=== PATIENT | male | born 2000 ===

== ENCOUNTER 2020-06-30 20:06 | Emergency (ER) | payer OTHER, SELFPAY ==
[2020-06-30 20:07] VITALS: BP 139/78; PULSE 76; RESP 16; TEMP 36.7; O2SAT 98; BMI 37.3
[2020-06-30] MEDS: Fluorescein Sodium STRIP 1 STRIP EYE-LEFT (21:21)
[2020-06-30] MEDS: Tetracaine HCl/PF 0.5% Oph Sol 4 ML DROPS 3 DROP EYE-LEFT (21:21)
--- NOTE | 2020-06-30 22:05 | ED_ITS ---
HPI - Eye Problem General Chief complaint: Eye Problems Stated complaint: left eye pain Time Seen by Provider: 06/30/20 20:45 Source: patient Mode of arrival: ambulatory Limitations: no limitations History of Present Illness HPI Narrative: Patient present to the ED for left eye irritation. Patient states something may have went into his eye, but does not remeber. Patient states no eye contacts MD chief complaint: eye redness Related Data Previous Rx's Medication Instructions Recorded erythromycin 0.5 inch OPHTHALMIC (EYE) QID #3.5 06/30/20 g naproxen 500 mg PO BID PRN #20 tab 06/30/20 Allergies Allergy/AdvReac Type Severity Reaction Status Date / Time amoxicillin [AMOXICILLIN] Allergy Unknown RASH Verified 06/30/20 21:21 Review of Systems Review of Systems: Yes all other systems are reviewed and are negative Constitutional: Constitutional: Reports as per HPI and Reports no additional constitutional complaints Eyes: Eyes: Reports as per HPI and Reports no additional eye complaints Comments: Eye irritation ENT: Reports system reviewed and no additional complaints, except as documented and Reports as per HPI Cardiovascular: Cardiovascular: Reports as per HPI and Reports no additional cardiovascular complaints Respiratory: Respiratory: Reports as per HPI and Reports no additional respiratory complaints Gastrointestinal: Gastrointestinal: Reports as per HPI and Reports no additional gastrointestinal complaints Genitourinary: Genitourinary: Reports no additional male genitourinary complaints and Reports as per HPI Musculoskeletal: Musculoskeletal: Reports no additional musculoskeletal complaints and Reports as per HPI Neurologic: Reports system reviewed and no additional complaints, except as documented and Reports as per HPI Psychiatric: Psychiatric: Reports no additional psychiatric complaints and Reports as per HPI [facility] Past Medical History Medical History (Updated 07/01/20 @ 00:01 by Ángel Walker) Asthma Social History Social History Advance Directives: No Advance Directives Information Provided: Yes Physical Exam Vital Signs: Vital Signs: Last Vital Signs Temp 98.1 F 06/30/20 20:07 Pulse 76 06/30/20 20:07 Resp 16 06/30/20 20:07 BP 139/78 06/30/20 20:07 Pulse Ox 98 06/30/20 20:07 Body Mass Index 37.3 Const: General: cooperative, healthy appearing, comfortable, no acute distress, well developed, alert and awake Orientation/consciousness: patient oriented x3 HENMT: Head: Yes normal to inspection, Yes No palpable skull fracture present, Yes normocephalic, Yes atraumatic and No abrasion Eyes: Other: Left eye: Positive for foreign body on iris. Fluorescein dye placed in eye and negative for corneal abrasion just foreign body. Negative for signs of globe rupture. slight conjuctiva erythema Right eye is normal: General: appearance normal, both eyes and all related structures Neck: Neck: Yes normal visual inspection, Yes full ROM, Yes no lymphadenopathy, Yes no meningeal signs, Yes trachea midline, Yes supple and No tender Chest: Chest palpation & inspection: normal inspection of the chest and normal palpation of entire chest wall Resp: Effort & Inspection: normal respiratory effort and able to speak in complete sentences Auscultation: clear to auscultation bilaterally Cardio: Jugular venous distension: no JVD Heart sounds: S1 normal heart sound present and S2 normal heart sound present GI: Inspection: Yes normal to inspection and No abdominal wall ecchymosis Palpation (GI): Soft to palpation, not firm, nontender, no guarding and not rigid : General: No CVA tenderness and Yes no CVA tenderness Back/Spine/Pelvis: Back: no CVA tenderness, No CVA tenderness and No back tenderness Skin: General skin exam: no rashes or lesions noted and elasticity normal Neuro: General: patient oriented x3, gait normal, no meningeal signs and CN's II-XI intact bilaterally Cranial nerves: Yes CN's II-XII intact bilaterally Extrem: General: Yes normal to inspection and Yes full ROM Psych: Appearance: grossly normal, well kempt and not disheveled Course Course Course Narrative: Tetracaine, wounds lamp, and fluorescein dye will be used for eye exam Reevaluation(s) Reevaluation #1: Positive for foreign body. Attempt to remove multiple time was not successful. Dye exam does not indicate globe rupture. Negative for corneal abrasion. Will give Tdap and sent home on erythromycin oitnment. Patient to follow-up with Dr. Cerna of Ophthalmology Visual acuity of right eye 20/20. Left eye 20/40 MDM - Eye Problem MDM Narrative Medical decision making narrative: Foreign body in eye Discharge Plan Discharge Clinical Impression: Foreign body in eye Patient Disposition: Home, Self-Care Instructions: Eye Foreign Body (ED) Additional Instructions: To the ED immediately for eye pain, loss of vision, eye discharge, change in vision, or any other concerning symptoms. Prescriptions: New erythromycin 5 mg/gram (0.5 %) ointment 0.5 inch ophthalmic (eye) QID Qty: 3.5 RF: 0 naproxen 500 mg tablet 500 mg PO BID PRN (Reason: pain) Qty: 20 RF: 0 Referrals: Chino Cerna [Physician] - 2 days (Corneal foreign body) Stand Alone Forms: Work/School Release Interventions: ED Discharge Assessment Last Done: 06/30/20 22:33 Discharge Date/Time: 06/30/20 22:34 Print Language: Turkish
[2020-06-30] MEDS: Diphth,Pertus(ACell),Tet Adult 0.5 ML SYRINGE IM (22:27)
== END 2020-06-30 22:34 | disposition home or self-care (01) ==
PROVIDERS: Emergency Provider Internal Medicine
DX: H57.12 Ocular pain, left eye (principal); T15.02XA Foreign body in cornea, left eye, initial encounter; X58.XXXA Exposure to other specified factors, initial encounter; Y93.9 Activity, unspecified; Y92.9 Unspecified place or not applicable; Y99.9 Unspecified external cause status
CPT/HCPCS: 90471; 90472; 90715; 99284

== ENCOUNTER 2021-03-18 10:39 | Emergency (ER) | payer OTHER, SELFPAY ==
[2021-03-18 11:08] VITALS: BP 141/87; PULSE 55; RESP 18; TEMP 36.7; O2SAT 95; BMI 36.8
--- NOTE | 2021-03-18 11:21 | ED_ITS ---
HPI - Wound/Laceration General Chief Complaint: Wound/Laceration Stated Complaint: HAND LACERATIONS Time Seen by Provider: 03/18/21 11:11 Source: patient Mode of arrival: ambulatory Limitations: no limitations History of Present Illness HPI narrative: 20-year-old male presents to the ER with a laceration to his right palm after he was cutting tomatoes this morning. He is right-hand dominant and his tetanus shot is up-to-date. He presents with a skin flap an avulsion at the base of the 1st finger, bleeding is controlled on arrival. He is able to move all digits make a fist. He has no numbness or tingling. Onset (ago): minute(s) Extremity Location: right: hand (Palmar aspect at the base of the 1st digit) Place: home Patient tetanus UTD: Yes Context: accidental Associated symptoms: pain Treatments prior to arrival: bandage Related Data Previous Rx's Medication Instructions Recorded erythromycin 5 mg/gram (0.5 %) eye 0.5 inch OPHTHALMIC (EYE) QID #3.5 06/30/20 ointment g naproxen 500 mg tablet 500 mg PO BID PRN #20 tab 06/30/20 Allergies Allergy/AdvReac Type Severity Reaction Status Date / Time amoxicillin [AMOXICILLIN] Allergy Unknown RASH Verified 06/30/20 21:21 [facility] Past Medical History Medical History (Updated 03/18/21 @ 11:43 by SHANNA Millan) Asthma Social History Social History Advance Directives: No Advance Directives Information Provided: No Physical Exam Vital Signs: Vital Signs: Last Vital Signs Temp 98.0 F 03/18/21 11:08 Pulse 55 03/18/21 11:08 Resp 18 03/18/21 11:08 BP 141/87 H 03/18/21 11:08 Pulse Ox 95 03/18/21 11:08 BMI result Body Mass Index 36.8 Appearance: Alert. Oriented X3. No acute distress. HEENT: normal inspection CVS: Normal heart rate and rhythm. Pulses normal. Respiratory: No respiratory distress. Skin: Skin warm and dry. Normal skin color. Normal skin turgor. No rashes. Extremities: right palm with an irregular shaped skin flap/avulsion at the base of the 1st digit, superfiical, all deep structures intact, normal ROM of all fingers, cap refill <3 sec, no active bleeding Neuro: Oriented X 3. No motor deficit. No sensory deficit. Course Course Course Narrative: 20-year-old male presents to the ER with a skin avulsion/flap from a knife injury while cutting tomatoes today. No active bleeding on arrival. The wound margins were revised and the wound was covered with skin glue/Dermabond to allow for healing. Sterile dressing was applied. Wound care was discussed with the patient. Stable for discharge home with supportive care. Procedures Laceration Laceration 1: Site: hand Side (If applicable): left Size (cm): 2 Description: flap and irregular Depth: simple, single layer Pre-repair: wound explored, irrigated extensively, deep structures intact and wound margins revised Skin layer closed with: other (dermabond) Critical Care Time Critical Care Time Critical Care Time: No Discharge Plan Discharge Clinical Impression: Laceration Patient Disposition: Home, Self-Care Instructions: Skin Avulsion (ED) Additional Instructions: Skin glue was used to cover your wound today and help healing. It will fall off on its own, do not peel it off. Once the skin glue falls off you can use bacitracin or Neosporin to help healing. If you notice any signs or symptoms of infection including redness, warmth, swelling or drainage of pus call your doctor or come back to the ER for further evaluation. Prescriptions: No Action erythromycin 5 mg/gram (0.5 %) ointment 0.5 inch ophthalmic (eye) QID Qty: 3.5 0RF naproxen 500 mg tablet 500 mg PO BID PRN (Reason: pain) Qty: 20 0RF
== END 2021-03-18 11:58 | disposition home or self-care (01) ==
PROVIDERS: Emergency Provider Emergency Medicine Emergency Medical Services
DX: S61.411A Laceration without foreign body of right hand, initial encounter (principal); W26.0XXA Contact with knife, initial encounter; Y93.G1 Activity, food preparation and clean up; Y92.030 Kitchen in apartment as the place of occurrence of the external cause; Y99.9 Unspecified external cause status
CPT/HCPCS: 12001; 99283

== ENCOUNTER 2022-06-21 03:12 | Emergency (ER) | payer OTHER, SELFPAY ==
[2022-06-21 03:31] VITALS: BP 130/76; PULSE 50; RESP 16; TEMP 36.6; O2SAT 97; BMI 34.4
[2022-06-21 05:56] VITALS: BP 121/76; PULSE 71; RESP 16; TEMP 36.7; O2SAT 96
--- NOTE | 2022-06-21 06:36 | ED.DENTAL ---
HPI - Dental/Oral General Chief complaint: Dental/Oral Stated complaint: dental pain Time Seen by Provider: 06/21/22 06:35 Source: patient, RN notes reviewed and old records reviewed Mode of arrival: ambulatory History of Present Illness HPI Narrative: 22-year-old male with past medical history of asthma presenting to the ED complaining of right upper dental pain radiating to right ear x2 days. Admits to chronically broken teeth. Denies recent dental procedures, facial trauma, fever/chills, sore throat difficulty/inability to swallow MD Complaint: tooth pain Related Data Previous Rx's Medication Instructions Recorded erythromycin 5 mg/gram (0.5 %) eye 0.5 inch ophthalmic (eye) QID 06/30/20 ointment foreign body #3.5 grams naproxen 500 mg tablet 500 mg PO BID PRN pain #20 tabs 06/30/20 cefdinir 300 mg capsule 300 mg PO BID 7 days #14 caps 06/21/22 naproxen 500 mg tablet 500 mg PO BID PRN pain 10 days #20 06/21/22 tabs Allergies Allergy/AdvReac Type Severity Reaction Status Date / Time amoxicillin [AMOXICILLIN] Allergy Unknown RASH Verified 06/30/20 21:21 Review of Systems Review of Systems: Constitutional: No Fever, No Chills ENT/Mouth: +dental pain, + Ear Pain, No Nasal Congestion, No Sinus Pain, No Hoarseness, No sore throat, No Rhinorrhea, No Swallowing Difficulty Cardiovascular: No Chest Pain, No SOB Respiratory: No Cough, No Sputum, No Wheezing Gastrointestinal: No Nausea, No Vomiting, No Diarrhea, No Constipation, No Abdominal pain Musculoskeletal: No joint pain, No Myalgias, No Joint Swelling Skin: No Skin Lesions, No rash Neuro: No Weakness Yes all other systems are reviewed and are negative Constitutional: Constitutional: Reports as per [facility] Past Medical History Attestation statement: The following information was validated with the patient. Source: old records reviewed Medical History Asthma Social History Social History Advance Directives: No Advance Directives Information Provided: No Physical Exam Vital Signs: Vital Signs: Last Vital Signs Temp 98.0 F 06/21/22 05:56 Pulse 71 06/21/22 05:56 Resp 16 06/21/22 05:56 BP 121/76 06/21/22 05:56 Pulse Ox 96 06/21/22 05:56 O2 Del Method Room Air 06/21/22 03:31 BMI result Body Mass Index 34.4 Const: General: cooperative, healthy appearing and no acute distress Orientation/consciousness: patient oriented x3 Limitations: no limitations HEENT: Other: mutliple broken teeth & dental caries, +right upper bicuspid broken w/surrounding gingival erythema and swelling w/ttp. no fluctuance or induration no facial swelling Head: Yes normal to inspection and Yes atraumatic Ears: hearing grossly normal bilaterally, external ears normal, TM's normal bilaterally and mastoids normal General nose exam: Normal external nose present Face and sinus: Yes normal facial exam Teeth and gingiva: caries and poor dentition Throat: Yes posterior oropharynx normal, Yes tonsils normal, Yes uvula midline, No uvula laterally displaced and No uvular edema Eyes: General: appearance normal, both eyes and all related structures EOM: EOMs intact bilaterally Neck: Neck: Yes normal visual inspection, Yes no lymphadenopathy, Yes no meningeal signs and No anterior neck swelling Resp: Effort & Inspection: normal respiratory effort and no respiratory distress Cardio: Rate: regular rate Skin: Rashes: no rashes Wounds: no wounds Neuro: General: patient oriented x3, tone normal and no meningeal signs Gait exam (Neuro): Normal gait present Extrem: General: Yes normal to inspection Medical Decision Making Medical Decision Making MDM Narrative: 22-year-old male with past medical history of asthma presenting to the ED complaining of right upper dental pain radiating to right ear x2 days. On exam VSS, NAD, nontoxic appearing, R upper bicuspid broken w/gingival swelling, erythema and ttp. No fluctuance or induration. talking in complete sentences. Concern for dental/gingival infection vs gingivitis. No evidence of abscess. Low concern for mastoiditis or otitis or [employer] Plan: PO Abx & dentistry f/u Results discussed with patient including worrisome signs and symptoms and strict return precautions, and when to return to the emergency department. They verbalized understanding and feel safe for discharge at this time. Differential Diagnosis Differential Diagnoses: The differential diagnosis associated with the presentation includes As above Admission/Observation Consideration of admission/observation: Escalation of care including admission/observation considered Radiology Impression Discussion of test interpretation with radiology: I have reviewed the radiologist's reading. External Record Review External record reviewed: Inpatient record, Office record, Outpatient record, Prior outpatient labs, Prior outpatient radiology, Primary care record and Outside ED record Tests considered The following testing was considered but not selected: As above Discharge Plan Discharge Clinical Impression: Toothache Patient Disposition: Home, Self-Care Instructions: Toothache (ED) Additional Instructions: Cefdinir is an antibiotic please take as prescribed Naproxen is for pain and inflammation, take with food in addition take tylenol if symptoms persist or worsen return to the ED follow up with a dentist Prescriptions: New cefdinir 300 mg capsule 300 mg PO BID 7 Days Qty: 14 0RF naproxen 500 mg tablet 500 mg PO BID PRN (Reason: pain) 10 Days Qty: 20 0RF No Action erythromycin 5 mg/gram (0.5 %) ointment 0.5 inch ophthalmic (eye) QID Qty: 3.5 0RF naproxen 500 mg tablet 500 mg PO BID PRN (Reason: pain) Qty: 20 0RF Referrals: Young Rizzo [Dentist] - Shukri Morrison DMD [Dentist] - Saad James DMD [Dentist] - Kathrin Penn DMD [Dentist] - Stand Alone Forms: Work/School Release Interventions: ED Discharge Assessment Last Done: 06/21/22 07:18 Discharge Date/Time: 06/21/22 07:19
== END 2022-06-21 07:19 | disposition home or self-care (01) ==
PROVIDERS: Emergency Provider Emergency Medicine Emergency Medical Services
DX: K08.89 Other specified disorders of teeth and supporting structures (principal)
CPT/HCPCS: 99283; 99284

== ENCOUNTER 2023-05-09 18:08 | Inpatient (IN) | payer SELFPAY ==
--- NOTE | ~2023-05-09 | CT_ITS ---
EXAMINATION: CT ABDOMEN AND PELVIS WITHOUT CONTRAST CLINICAL INFORMATION: Abdominal pain. Leukocytosis. Concern for appendicitis. COMPARISON: None available. TECHNIQUE: Multidetector volumetric imaging was performed from the superior aspect of the liver through the pubic symphysis. Sagittal and coronal reformatted images were obtained on the technologist's workstation. This CT examination was performed using dose optimization techniques as appropriate, variously including the following: *Automated exposure control *Adjustment of mA and/or kV according to patient size (this includes techniques or standardized protocols for targeted exams where dose is matched to indication/reason for exam; i.e. extremities or head) *Use of iterative reconstruction technique DLP: 663 mGy-cm FINDINGS: LUNG BASES: The visualized lung bases are unremarkable. LIVER, GALLBLADDER, AND BILIARY TREE: The liver is normal in size, shape, and attenuation. No focal hepatic lesion or biliary ductal dilatation is present. The gallbladder is unremarkable with no evidence of radiopaque gallstones, gallbladder wall thickening, or obvious pericholecystic inflammatory changes. PANCREAS: Unremarkable. SPLEEN: Unremarkable. ADRENAL GLANDS: Unremarkable. KIDNEYS AND URETERS: The kidneys are normal in size, shape, and attenuation. No hydronephrosis, hydroureter, or calculi seen. No perinephric stranding. BLADDER: Unremarkable. GASTROINTESTINAL TRACT: The small and large bowel are unremarkable. The appendix is visualized and measures 6-7 mm proximally. There is no periappendiceal infiltration and there is no appendicolith. ABDOMINAL WALL: No significant hernia is appreciated. LYMPH NODES: There are numerous prominent mesenteric lymph nodes mostly in the right lower quadrant measuring up to 1.7 cm. VASCULAR: Unremarkable. PELVIC VISCERA: Unremarkable. OSSEOUS STRUCTURES: Unremarkable. CT/CT abdomen pelvis wo IV con IMPRESSION: 1. Prominent mesenteric lymph nodes mostly in the right lower quadrant measuring up to 1.7 cm. This is nonspecific. Consider mesenteric adenitis. 2. The appendix is visualized and measures 6-7 mm proximally. There is no periappendiceal infiltration and there is no appendicolith. Overall low suspicion for appendicitis. Clinical follow-up suggested. Fleischner guidelines were followed.
[2023-05-09 19:02] VITALS: BP 125/82; PULSE 80; RESP 20; TEMP 37.2; O2SAT 99; BMI 33.1
[2023-05-09 20:01] LABS: MANUAL DIFF FLAG NO
[2023-05-09 20:03] LABS: Basophils Absolute Auto 0.1 X10*3/uL (0.0-0.2); Basophils Percent Auto 0.3 % (0-2); Eosinophils Absolute Auto 0.6 X10*3/uL (0.0-0.4); Eosinophils Percent Auto 2.7 % (0-4); Hematocrit 45.7 % (42.0-52.0); Hemoglobin 15.3 g/dl (14.0-18.0); Imm Gran Abs Auto 0.14 X10*3/uL (0.00-0.03); Imm Gran Pct Auto 0.7 % (0.0-0.4); Lymphocytes Absolute Auto 2.6 X10*3/uL (1.2-4.9); Lymphocytes Percent Auto 12.5 % (20-40); Mean Corpuscular HGB Conc 33.5 g/dl (31.0-36.0); Mean Corpuscular Volume 83.7 fL (80.0-98.0); Mean Platelet Volume 8.1 fL (9.4-12.4); Monocytes Absolute Auto 1.3 X10*3/uL (0.1-1.2); Monocytes Percent Auto 6.4 % (2-11); Neutrophils Absolute Auto 16.2 x10*3/uL (2.0-8.3); Neutrophils Percent Auto 77.4 % (45-73); Platelet Count 318 X10*3/uL (160-400); Red Blood Count 5.46 X10*6/uL (4.60-5.80); Red Cell Distribution Width 12.1 % (11.0-16.0); White Blood Count 20.9 X10*3/uL (4.8-10.8)
[2023-05-09 20:16] LABS: Alanine Aminotransferase 26 U/L (0-40); Albumin Level 4.2 g/dL (3.5-5.0); Alkaline Phosphatase 163 U/L (39-117); Anion Gap 12 (12-20); Aspartate Amino Transferase 14 U/L (5-37); Bilirubin Direct 0.1 mg/dL (0.0-0.5); Bilirubin Total 0.3 mg/dL (0.0-1.0); Blood Urea Nitrogen 10 mg/dL (9-16); Calcium 9.6 mg/dL (8.4-10.2); Carbon Dioxide 26 mmol/L (22-29); Chloride 105 mmol/L (96-108); Creatinine Clr Calc Pharmacy 174.7; Estimated Glomerular Filt Rate > 60; Glucose Random 98 mg/dL (60-115); Lipase 15 U/L (8-78); Sodium 139 mmol/L (135-145)
--- NOTE | 2023-05-09 22:42 | ED.ABDPAIN ---
HPI - Abdominal Pain General Chief Complaint: Abdominal Pain Stated Complaint: abd pain Time Seen by Provider: 05/09/23 22:35 Source: patient and family (Mother) Mode of arrival: ambulatory Limitations: no limitations History of Present Illness HPI narrative: 23-year-old male came in for evaluation of 5-6 days abdominal pain, pain started mostly in the lower abdomen left more than right that radiates toward the epigastric area, pain is associated with nausea, vomiting, nonbloody watery diarrhea. Patient declined any fever chills. Last bowel movement was nonbloody watery diarrhea about couple hours ago, passing gas, denies any past intra-abdominal surgical history. No sick contacts, no exposure to a bad food. Related Data Previous Rx's Medication Instructions Recorded erythromycin 5 mg/gram (0.5 %) eye 0.5 inch ophthalmic (eye) QID 06/30/20 ointment foreign body #3.5 grams naproxen 500 mg tablet 500 mg PO BID PRN pain #20 tabs 06/30/20 cefdinir 300 mg capsule 300 mg PO BID 7 days #14 caps 06/21/22 naproxen 500 mg tablet 500 mg PO BID PRN pain 10 days #20 06/21/22 tabs Allergies Allergy/AdvReac Type Severity Reaction Status Date / Time amoxicillin [AMOXICILLIN] Allergy Unknown RASH Verified 05/09/23 19:01 Review of Systems Review of Systems All other systems are reviewed and are negative Constitutional: Reports as per HPI and Reports no additional constitutional complaints Eyes: Reports as per HPI and Reports no additional eye complaints Reports system reviewed and no additional complaints, except as documented Cardiovascular: Reports as per HPI and Reports no additional cardiovascular complaints Respiratory: Reports as per HPI and Reports no additional respiratory complaints Gastrointestinal: Reports as per HPI and Reports no additional gastrointestinal complaints Genitourinary: Reports no additional female genitourinary complaints Musculoskeletal: Reports no additional musculoskeletal complaints Skin/Breast: Reports system reviewed and no additional complaints, except as docu Psychiatric: Reports no additional psychiatric complaints Endocrine: Reports no additional endocrine complaints Hematologic/Lymphatic: Reports no additional hematologic/lymphatic complaints Allergic/Immunologic: Reports no additional allergic/immunologic complaints Reports system reviewed and no additional complaints, except as documented and Reports Abnormal speech present [facility] Past Medical History Medical History Asthma Social History Social History Patient Tobacco Use Status: Never used Tobacco Smoked in Last 30 Days: No Use of substances other than those prescribed or required for medical reasons: No Advance Directives: No Advance Directives Information Provided: No Nutrition Risks: No Nutritional Risk Physical Exam ED Vital Signs: Vital Signs - 24 hr 05/09/23 19:02 05/09/23 22:50 05/09/23 23:48 Temperature 99 F 99.4 F 98.9 F Pulse Rate 80 79 72 Respiratory Rate 20 16 16 Blood Pressure 125/82 133/80 137/85 Pulse Oximetry 99 97 97 Oxygen Delivery Method Room Air Room Air Room Air 05/10/23 01:33 Temperature 98.3 F Pulse Rate 64 Respiratory Rate 18 Blood Pressure 140/82 H Pulse Oximetry 96 Oxygen Delivery Method Room Air BMI result Body Mass Index 33.1 Vital signs have been reviewed and appear to be correct. Blood pressure elevated. Heart rate normal. Respiratory rate normal. Temperature normal. Oxygen saturation normal. Appearance: Alert. Oriented X3. No acute distress. Head: Normal external exam. Normocephalic. Atraumatic. No Membreno signs noted. No raccoon eyes noted Eyes: PERRLA. EOMI. Conjunctiva and sclera normal. Eyelids normal. ENT: TM's Normal. Pharynx normal. Uvula midline. Moist mucous membranes. No trismus noted. No drooling noted. No muffled voice noted. Neck: Normal inspection. Neck supple. FROM. No adenopathy. Thyroid Normal. No meningeal signs. No neck mass noted. CVS: Normal heart rate and rhythm. Heart sound normal. No murmurs noted. Pulses normal throughout. Respiratory: No respiratory distress. Painless inspiration. Breath sounds normal. No wheezes/rales/rhonchi noted. Chest nontender. No accessory muscle usage noted or decreased air movement noted. Abdomen: Soft, mild lower abdominal tenderness, no rebound tenderness, no guarding.. Bowel sounds normal in all 4 quadrants. No distention noted. No organomegaly noted. No visible injury noted. Back: No CVA tenderness. Full range of motion noted. Skin: Skin warm and dry. Normal skin color. Normal skin turgor. No rashes/lesions/lacerations noted. Extremities: No lower extremity edema. Extremities exhibit normal range of motion. Extremities nontender. Neuro: Oriented X 3. Cranial nerve exam: II-XII are grossly intact No motor deficit. No sensory deficit. Reflexes normal. Course Reevaluation(s) Reevaluation #1: Patient feels better overall, repeat abdominal exam reveals minimal tenderness and discomfort over the RLQ, leukocytosis with left shift, slightly enlarged appendix on the CT with diffuse lymphadenitis [facility] surgical consultation, Dr. Maciel was contacted at 12:03 still await for response, meanwhile will keep the patient in the ED for serial abdominal exam. Time: 01:31 Reevaluation #2: The case discussed with Dr. Maciel who reviewed the CT scan and lab result who advised to admit the patient for observation and serial abdominal exam case discussed with the patient and mother who agreed on the plan. Time: 02:04 Medical Decision Making Differential Diagnosis Differential Diagnoses: The differential diagnosis associated with the presentation includes (Gastritis, gastroenteritis, acute appendicitis, colitis, diverticulitis, electrolyte derangement, constipation, severe anemia, pancreatitis, acute cholecystitis.) Admission/Observation Consideration of admission/observation: Escalation of care including admission/observation considered Consult Healthcare Provider Management of the patient was discussed with: Chocolate Production Machine Operator (Dr. Maciel) Lab Data MDM Lab Attestation statement: I reviewed the patient's lab results. 05/09/23 19:57 05/09/23 19:57 Labs: Lab Results 05/09/23 05/09/23 Range/Units 19:57 23:14 WBC 20.9 H (4.8-10.8) X10*3/uL RBC 5.46 (4.60-5.80) X10*6/uL Hgb 15.3 (14.0-18.0) g/dl Hct 45.7 (42.0-52.0) % MCV 83.7 (80.0-98.0) fL MCH 28.0 (27.0-33.0) pg MCHC 33.5 (31.0-36.0) g/dl RDW 12.1 (11.0-16.0) % Plt Count 318 (160-400) X10*3/uL MPV 8.1 L (9.4-12.4) fL Immature Gran % (Auto) 0.7 H (0.0-0.4) % Neut % (Auto) 77.4 H (45-73) % Lymph % (Auto) 12.5 L (20-40) % Page % (Auto) 6.4 (2-11) % Eos % (Auto) 2.7 (0-4) % Baso % (Auto) 0.3 (0-2) % Lymph # (Auto) 2.6 (1.2-4.9) X10*3/uL Page # (Auto) 1.3 H (0.1-1.2) X10*3/uL Eos # (Auto) 0.6 H (0.0-0.4) X10*3/uL Baso # (Auto) 0.1 (0.0-0.2) X10*3/uL Abs Immat Gran (auto) 0.14 H (0.00-0.03) X10*3/uL Absolute Neuts (auto) 16.2 H (2.0-8.3) x10*3/uL Absolute Nucleated RBC 0.000 (0.0-0.012) X10*3/uL Nucleated RBC % (auto) 0.0 (0.0-0.2) /100WBC Sodium 139 (135-145) mmol/L Potassium 4.0 (3.3-5.1) mmol/L Chloride 105 (96-108) mmol/L Carbon Dioxide 26 (22-29) mmol/L Anion Gap 12 (12-20) BUN 10 (9-16) mg/dL Creatinine 0.79 (0.5-1.4) mg/dL Estim Creat Clear Calc 174.7 Estimated GFR > 60 Random Glucose 98 (60-115) mg/dL Calcium 9.6 (8.4-10.2) mg/dL Total Bilirubin 0.3 (0.0-1.0) mg/dL Direct Bilirubin 0.1 (0.0-0.5) mg/dL AST 14 (5-37) U/L ALT 26 (0-40) U/L Alkaline Phosphatase 163 H (39-117) U/L Total Protein 8.0 (6.5-8.0) g/dL Albumin 4.2 (3.5-5.0) g/dL Lipase 15 (8-78) U/L Urine Color Yellow Urine Appearance Hazy Urine pH 6.0 (5.0-9.0) Ur Specific [place] >= 1.030 H (1.005-1.025) Urine Protein Negative (Neg-Trace) mg/dL Urine Glucose (UA) Negative (Negative) mg/dL Urine Ketones Negative (Negative) mg/dL Urine Blood Negative (Negative) Urine Nitrite Negative (Negative) Ur Leukocyte Esterase Negative (Negative) Independent Interpretation I performed an independent interpretation of an: CT Scan (Abdomen and pelvis:1. Prominent mesenteric lymph nodes mostly in the right lower quadrant measuring up to 1.7 cm. This is nonspecific. Consider mesenteric adenitis. 2. The appendix is visualized and measures 6-7 mm proximally. There is no periappendiceal infiltration and there is no appendicolith.) Radiology Impression Discussion of test interpretation with radiology: I have reviewed the radiologist's reading. Medications Administered Generic Name Dose Route Start Last Admin Trade Name Freq PRN Reason Stop Dose Admin Acetaminophen 1,000 mg in 100 mls @ 400 mls/hr 05/10/23 03:00 05/10/23 02:51 Ofirmev IV 05/10/23 21:14 400 mls/hr Q6H PAUL Administration Dextrose/Lactated Ringer's 1,000 mls @ 125 mls/hr 05/10/23 02:15 05/10/23 02:46 D5lr IVCONT 125 mls/hr .Q8H PAUL Administration Discontinued Medications Generic Name Dose Route Start Last Admin Trade Name Freq PRN Reason Stop Dose Admin Morphine Sulfate 2 mg 05/09/23 23:34 05/09/23 23:41 Morphine Sulfate 2 Mg/Ml Cartridge IVPUSH 05/09/23 23:35 2 mg ONCE ONE Administration Protocol Discharge Plan Discharge Clinical Impression: Abdominal pain, Leukocytosis, Acute lymphadenitis Patient Disposition: Admitted As Inpatient
[2023-05-09 22:50] VITALS: BP 133/80; PULSE 79; RESP 16; TEMP 37.4; O2SAT 97
--- NOTE | 2023-05-09 22:50 | MHC.EDTECH ---
THIS PCT JUST ASSUMED CARE OF PATIENT ,VITALS TAKEN ,PATIENT SAID HE NOT ABLE TO GIVE URINE SAMPLE AT THIS TIME ,RN AWARE .
[2023-05-09 23:30] LABS: Appearance Urine Hazy; Color Urine Yellow; Glucose Urine UA Negative (Negative); Leukocyte Esterase Urine Negative (Negative); Nitrite Urine Negative (Negative); Specific Gravity - Urine >= 1.030 (1.005-1.025); Urine Blood Negative (Negative); Urine Ketones Negative (Negative); Urine Protein Negative (Neg-Trace)
[2023-05-09] MEDS: Morphine Sulfate 2 MG/ML CARTRIDGE IVPUSH (23:41)
[2023-05-09 23:48] VITALS: BP 137/85; PULSE 72; RESP 16; TEMP 37.2; O2SAT 97
[2023-05-10 01:33] VITALS: BP 140/82; PULSE 64; RESP 18; TEMP 36.8; O2SAT 96
--- NOTE | 2023-05-10 01:35 | MHC.EDTECH ---
Rounding done ,Vitals taken ,Patient resting waiting for results .
[2023-05-10 02:08] VITALS: BP 133/76; PULSE 66; RESP 16; TEMP 37
--- NOTE | 2023-05-10 02:42 | MHC.EDTECH ---
BLOOD CULTURE AND LACTIC ACID DRAWN AND SENT TO LAB ,VITALS TAKEN AND PATIENT BELONGING LIST DONE .
[2023-05-10] MEDS: Dextrose 5 % and Lactated Ring 1,000 ML 125 ML IVCONT (02:46)
[2023-05-10] MEDS: Acetaminophen 1,000 MG/100 ML PIGGYBACK 400 MG IV ×2 (02:51→10:30)
[2023-05-10 02:52] LABS: Lactic Acid 0.5 mmol/L (0.5-2.0)
[2023-05-10 06:00] VITALS: BP 132/71; PULSE 67; RESP 16; TEMP 36.8; O2SAT 97
--- NOTE | 2023-05-10 06:01 | MHC.EDTECH ---
0600 rounding done ,vitals taken ,Patient was up walk to bathroom ,void and back to bed ,Call trejo within Pt mom ,Patient mom at bedside .
[2023-05-10] MEDS: HYDROmorphone HCl 0.5 MG/0.5 ML SYRINGE IVPUSH (06:19)
--- NOTE | 2023-05-10 07:46 | P.HPGS_ITS ---
History of Present Illness History of Present Illness Date of Service: 05/10/23 Chief complaint: Abdominal pain, mesenteric adenitits Narrative: Octavio Purcell is a 23 year old male presenting with complaints of abdominal pain. The pain began approximately 3-4 days prior to presentation. The pain is mainly located in the lower abdomen both left and right. He reports low-grade fever and chills but reported nausea and vomiting. He denies any sick contacts or travel. Pain comes in waves but never completely goes away. Pain does improve with change in position. He denies a previous episode of similar pain. He presented to the emergency department was noted to have an elevated WBC. Workup for appendicitis however with CT abdomen and pelvis revealed a normal appendix. Enteric lymphadenitis was identified. He is admitted to the surgical service for management of the lymphadenitis/abdominal pain. This morning he does feel somewhat improved and reports being hungry. He denies any further nausea or vomiting. Review of Systems Review of Systems: Yes all other systems are reviewed and are negative Constitutional: Constitutional: Denies chills, Denies fever(s), Denies headache(s), Denies poor appetite and Denies weakness ENT: Denies headache(s) Cardiovascular: Cardiovascular: Denies chest pain, Denies irregular heart rhythm, Denies palpitations and Denies dyspnea Respiratory: Respiratory: Denies cough, Denies excessive phlegm production and Denies dyspnea Gastrointestinal: Gastrointestinal: Reports abdominal pain, Denies bloating, Denies change in bowel habits, Denies constipation, Denies heartburn, Denies diarrhea, Reports nausea and Reports vomiting Genitourinary: Genitourinary: Denies difficulty urinating and Denies urinary frequency Musculoskeletal: Musculoskeletal: Denies back pain, Denies muscle weakness and Denies numbness Integumentary/Breasts: Skin/Breast: Denies changing lesions and Denies unusual bruising Neurologic: Denies headache(s), Denies numbness, Denies paresthesias and Denies weakness Psychiatric: Psychiatric: Denies anxiety and Denies depression Endocrine: Endocrine: Denies palpitations Hematologic/Lymphatic: Hematologic/Lymphatic: Denies lymphadenopathy [facility] Past Medical History Medical History Asthma Social History Social History Patient Tobacco Use Status: Never used Tobacco Smoked in Last 30 Days: No Use of substances other than those prescribed or required for medical reasons: No Advance Directives: No Advance Directives Information Provided: No Nutrition Risks: No Nutritional Risk Meds Allergies Allergy/AdvReac Type Severity Reaction Status Date / Time amoxicillin [AMOXICILLIN] Allergy Unknown RASH Verified 05/09/23 19:01 Active Medications: Current Medications Hydromorphone HCl (Hydromorphone Hcl 0.5 Mg/0.5 Ml Syringe) 0.5 mg IVPUSH Q3H PRN; Protocol PRN Reason: Pain, Severe (Pain Scale 7-10) Last Admin: 05/10/23 06:19 Dose: 0.5 mg Acetaminophen (Ofirmev) 1,000 mg in 100 mls @ 400 mls/hr IV Q6H PAUL Stop: 05/10/23 21:14 Last Infusion: 05/10/23 06:04 Dose: Infused Dextrose/Lactated Ringer's (D5lr) 1,000 mls @ 125 mls/hr IVCONT .Q8H PAUL Last Admin: 05/10/23 02:46 Dose: 125 mls/hr Levofloxacin (Levaquin) 500 mg in 100 mls @ 100 mls/hr IV DAILY PAUL Sodium Chloride (0.9 % Sodium Chloride Flush 3 Ml Syringe) 3 ml IVFLUSH QSHIFT [facility] Physical Exam Vital Signs: Vital Signs: Last Vital Signs Temp 98.3 F 05/10/23 06:00 Pulse 67 05/10/23 06:00 Resp 16 05/10/23 06:00 BP 132/71 05/10/23 06:00 Pulse Ox 97 05/10/23 06:00 O2 Del Method Room Air 05/10/23 06:00 BMI result Body Mass Index 33.1 Const: General: cooperative and no acute distress Nutritional Appearance: well nourished Orientation/consciousness: patient oriented x3 Limitations: no limitations HEENT: Head: Yes normocephalic and Yes atraumatic Ears: hearing grossly normal bilaterally Resp: Effort & Inspection: normal respiratory effort, no audible wheezes, no cough and no respiratory distress Cardio: Jugular venous distension: no JVD GI: Inspection: Yes normal to inspection Palpation (GI): Soft to palpation, Tenderness to palpation present (GI) in the LLQ and in the RLQ, no guarding, not rigid and No hepatosplenomegaly present Skin: Other: Warm, dry, no rash Neuro: General: patient oriented x3 Extrem: General: Yes no clubbing, cyanosis or edema Results Results Labs: Short CBC 05/09/23 Range/Units 19:57 WBC 20.9 H (4.8-10.8) X10*3/uL Hgb 15.3 (14.0-18.0) g/dl Hct 45.7 (42.0-52.0) % Plt Count 318 (160-400) X10*3/uL BMP 05/09/23 19:57 Sodium 139 Potassium 4.0 Chloride 105 Carbon Dioxide 26 BUN 10 Creatinine 0.79 Calcium 9.6 Liver Function 05/09/23 Range/Units 19:57 Total Bilirubin 0.3 (0.0-1.0) mg/dL Direct Bilirubin 0.1 (0.0-0.5) mg/dL AST 14 (5-37) U/L ALT 26 (0-40) U/L Alkaline Phosphatase 163 H (39-117) U/L Albumin 4.2 (3.5-5.0) g/dL Urine 05/09/23 Range/Units 23:14 Urine Color Yellow Urine Appearance Hazy Urine pH 6.0 (5.0-9.0) Ur Specific [place] >= 1.030 H (1.005-1.025) Urine Protein Negative (Neg-Trace) mg/dL Urine Glucose (UA) Negative (Negative) mg/dL Assessment and Plan (1) Acute lymphadenitis: Status: Acute (2) Leukocytosis: Status: Acute (3) Abdominal pain: Qualifiers: Abdominal location: lower abdomen, unspecified Qualified Code(s): R10.30 - Lower abdominal pain, unspecified Status: Acute Plan 23-year-old male patient presenting with lower abdominal pain of 4 days' duration found to have mesenteric lymphadenitis on workup and an elevated WBC. Patient admitted for IV antibiotics and bowel rest. This morning he is feeling improved therefore he will be started on a clear liquid diet. Laboratories recheck this morning as well. Discussed the findings and plan with the patient he agrees with current management. Quality Stroke Does the patient have a stroke diagnosis?: No VTE Prior VTE?: No VTE Risk Level:: Surgical - low VTE Device Contraindication: N/A - Device Ordered VTE Drug Contraindication: Treatment Not Indicated Procedures Date of Service Date of Service: 05/10/23
--- NOTE | 2023-05-10 08:57 | PHA.MEDREC ---
Pharmacy Consult ? Medication Reconciliation Pharmacy has completed the medication reconciliation. Spoke to patient and confirmed he's not on any medications.
[2023-05-10 10:37] VITALS: BP 122/80; PULSE 60; RESP 16; TEMP 36.9; O2SAT 100
--- NOTE | 2023-05-10 10:44 | PC.NURSE ---
medicated per the MAR, patient remains alert and oriented with even and unlabored respirations. per surgical notes - patient has been advanced to clear liquids. denies any pain/nausea/vomiting at this time
--- NOTE | 2023-05-10 10:45 | MHC.CM.PN ---
Met with patient and mother, Michelle in regards to discharge planning. Patient lives with his mother, ambulates independently and had no services prior to coming to the hospital. Patient does not have insurance. Patient agreeable to referral to [facility] to see if patient will qualify for [facility]. Patient does not have a PCP. No HCP. [facility] will transport patient home when medically stable. Continue to monitor for d/c needs
[2023-05-10] MEDS: levoFLOXacin/D5W 500 MG/100 ML PIGGYBACK 100 MG IV (11:40)
[2023-05-10 11:53] LABS: Anion Gap 9 (12-20); Blood Urea Nitrogen 11 mg/dL (9-16); Calcium 9.4 mg/dL (8.4-10.2); Carbon Dioxide 30 mmol/L (22-29); Chloride 102 mmol/L (96-108); Creatinine Clr Calc Pharmacy 179.3; Estimated Glomerular Filt Rate > 60; Glucose Random 90 mg/dL (60-115); Potassium 4.3 mmol/L (3.3-5.1); Sodium 137 mmol/L (135-145)
--- NOTE | 2023-05-10 13:51 | PM.EVENT ---
Event Note Date of Service: 05/10/23 Event Note: Patient reports feeling much improved and is reported to be requesting discharge AMA On examination the patient's abdominal exam is benign with no further abdominal pain. Will discharge home, follow-up as needed. Time Spent With Patient Time: Total time managing care of this patient today ____ minutes.
--- NOTE | 2023-05-10 14:24 | PC.NURSE ---
patient requesting to leave AMA, educated on worsening symptoms and follow up care. aware of need to return.
--- NOTE | 2023-05-11 11:37 | PM.DS ---
DS: Providers Provider Date of Service: 05/10/23 Date of admission: 05/10/23 02:08 Date of discharge: 05/10/23 Primary care physician: Roma Physician Admitting clinician: Tim Maciel Discharging clinician: Tim Maciel DS: Diagnosis Discharge Diagnosis (1) Acute lymphadenitis: Status: Acute (2) Leukocytosis: Status: Acute (3) Abdominal pain: Status: Acute DS: Summary Hospital Course Hospital Course: 23-year-old male patient presenting to the emergency department with severe abdominal pain in the lower abdomen. Patient reports the abdominal pain began approximately 3 days prior with increased in severity over the past 2 days. Presented to the ED for further evaluation was noted to have an elevated WBC. CT abdomen and pelvis was negative for appendicitis however mesenteric lymphadenitis was identified. He was initially admitted for IV antibiotics and pain management due to his severe pain however over the next several hours he reported improvement in his pain. He was started on a liquid diet and tolerated this well. He subsequently requested to be discharged to home. Abdominal examination was soft and nontender with no rebound, guarding or rigidity. Patient was subsequently discharged to home in stable condition. He will follow-up in the office in 1-2 weeks. Time spent discussing smoking cessation with patient: 3 to 10 minutes Status at Discharge Functional status at discharge: independent ambulation Overall status at discharge: patient is back to baseline Time Attestation Discharge Coordination Time (in mins): 20 minutes Quality: Safe Use of Opioids Does Pt have an Active Cancer Diagnosis on the Problem List?: No Quality: Stroke Does the patient have a stroke diagnosis?: No Physical Exam Vital Signs: Vital Signs: Last Vital Signs Temp 98.5 F 05/10/23 10:37 Pulse 60 05/10/23 10:37 Resp 16 05/10/23 10:37 BP 122/80 05/10/23 10:37 Pulse Ox 100 05/10/23 10:37 O2 Del Method Room Air 05/10/23 10:37 BMI result Body Mass Index 33.1 Const: General: cooperative and no acute distress Nutritional Appearance: well nourished Orientation/consciousness: patient oriented x3 Limitations: no limitations HEENT: Head: Yes normocephalic and Yes atraumatic Ears: hearing grossly normal bilaterally Resp: Effort & Inspection: normal respiratory effort, no audible wheezes, no cough and no respiratory distress Cardio: Jugular venous distension: no JVD GI: Inspection: Yes normal to inspection Palpation (GI): Soft to palpation, nontender, no guarding, not rigid and No hepatosplenomegaly present Skin: Other: Warm, dry, no rash Neuro: General: patient oriented x3 Extrem: General: Yes no clubbing, cyanosis or edema DS: Data Data Completed and Pending Labs on day of discharge: Laboratory Results - last 24 hr 05/10/23 11:12 Sodium 137 Potassium 4.3 Chloride 102 Carbon Dioxide 30 H Anion Gap 9 L BUN 11 Creatinine 0.77 Estim Creat Clear Calc 179.3 Estimated GFR > 60 Random Glucose 90 Calcium 9.4 Preliminary micro results at discharge 05/10/23 02:35 Blood Culture - Preliminary Blood - Venous No growth after 24 hours. 05/10/23 02:36 Blood Culture - Preliminary Blood - Venous No growth after 24 hours. Discharge Plan Discharge Anticipated Discharge Date/Time: 05/10/23 13:43 Patient Disposition: Home, Self-Care Discharge Diagnosis: Mesenteric adenitis, leukocytosis Referrals: Tim Maciel MD [Physician] - 3 Weeks Physician,None [Primary Care Provider] - 1 Week Discharge Medications: New sulfamethoxazole-trimethoprim [Bactrim DS] 800-160 mg tablet 1 tab PO Q12H Qty: 10 0RF Discharge Orders: Discharge Order (Routine); Ordered 05/10/23 Ordered By: Tim Maciel Diet: Advance to usual diet Activity on Discharge: As tolerated Stand Alone Forms: Patient Portal Discharge page, Work/School Release Print Language: Upper Sorbian Care Plan Goals: Return to normal activity and diet without increased abdominal pain Health Concerns: Abdominal pain Plan of Treatment: Antibiotics Assessment: Patient now reports being improved with no further pain; he requests discharge to home. Final diagnosis: mesenteric adenitis. Discharge Date/Time: 05/10/23 14:24
== END 2023-05-10 14:24 | disposition home or self-care (01) | DRG 395 ==
LOC: HO.ED 05-10 02:06 → HO.EDOVER 05-10 02:18
PROVIDERS: Admitting Provider Surgery; Emergency Provider Emergency Medicine; Visit Provider Surgery
DX: I88.0 Nonspecific mesenteric lymphadenitis (principal); Z79.899 Other long term (current) drug therapy
CPT/HCPCS: 36415; 74176; 80048; 80076; 81003; 83605; 83690; 85025; 87040; 99285; J0131; J1170; J1956; J2270

== ENCOUNTER → 2023-05-10 02:08 | Outpatient (BNV) | payer SELFPAY | PROVIDERS: Admitting Provider Surgery; Emergency Provider Emergency Medicine; Visit Provider Surgery | DX: L04.9 Acute lymphadenitis, unspecified (principal); D72.829 Elevated white blood cell count, unspecified; R10.30 Lower abdominal pain, unspecified | CPT/HCPCS: 99222; 99499 ==

== ENCOUNTER 2023-05-11 09:14 | Emergency (ER) | payer SELFPAY ==
--- NOTE | 2023-05-11 10:31 | PC.NURSE ---
no call for traige at 1020, 1031
== END 2023-05-11 11:34 | disposition left against medical advice (07) ==
LOC: HO.ED 11:21
PROVIDERS: Emergency Provider Emergency Medicine
DX: R10.9 Unspecified abdominal pain (principal)

== ENCOUNTER 2023-05-13 05:22 | Emergency (ER) | payer SELFPAY ==
[2023-05-13 05:24] VITALS: BP 138/86; PULSE 101; RESP 16; TEMP 37.4; O2SAT 95; BMI 33.0
--- NOTE | 2023-05-13 07:49 | ED.ABDPAIN ---
HPI - Abdominal Pain General Chief Complaint: Abdominal Pain Stated Complaint: post op pain, meds not working Time Seen by Provider: 05/13/23 07:47 Source: patient and old records reviewed Mode of arrival: ambulatory Limitations: no limitations History of Present Illness HPI narrative: Patient is a 23-year-old male presenting to the emergency department with ongoing lower abdominal pain, diarrhea, nausea, and vomiting. He was see in this ED on 05/08 and admitted for mesenteric adenitis. He reports that he became frustrated because he was told conflicting information about whether or not he would be having surgery and he requested discharge home. He was discharged on Bactrim which he states he has been taking as prescribed. Reports decreased appetite, one episode of vomiting this morning. Reports he occasionally has noted small amounts of dark red blood in his stool. Intermittent episodes of sweating, has not checked temperature at home. Has been tolerating PO fluids. MD elicited complaint: abdominal pain Onset (ago): week(s) Pain Consistency: constant Location: RLQ and LLQ Severity: severe Quality: aching Radiation: none Migration to: no migration Exacerbating factors: eating Relieving factors: nothing Associated symptoms: nausea, vomiting, diarrhea and fever Treatments prior to arrival: other Related Data Previous Rx's ?Medication ?Instructions ?Recorded sulfamethoxazole 800 1 tab PO Q12H #10 tabs 05/10/23 mg-trimethoprim 160 mg tablet (Bactrim DS) cefuroxime axetil 500 mg tablet 500 mg PO BID #13 tabs 05/13/23 ondansetron 4 mg disintegrating 4 mg PO Q8H PRN nausea and 05/13/23 tablet vomiting #10 tabs phenazopyridine 100 mg tablet 100 mg PO TID PRN pain 6 doses #6 05/13/23 tabs Allergies Allergy/AdvReac Type Severity Reaction Status Date / Time amoxicillin [AMOXICILLIN] Allergy Unknown RASH Verified 05/13/23 05:32 Review of Systems Review of Systems As per HPI. Yes all other systems are reviewed and are negative Constitutional: Reports as per HPI [facility] Past Medical History Medical History Asthma Social History Social History Patient Tobacco Use Status: Never used Tobacco Smoked in Last 30 Days: No Advance Directives: No Advance Directives Information Provided: No service: No Physical Exam ED Vital Signs: Vital Signs - 24 hr 05/13/23 05:24 05/13/23 07:56 05/13/23 12:12 Temperature 99.3 F 98.2 F 98.7 F Pulse Rate 101 H 68 69 Respiratory Rate 16 19 19 Blood Pressure 138/86 128/91 H 113/74 Pulse Oximetry 95 96 98 Oxygen Delivery Method Room Air Room Air Room Air BMI result Body Mass Index 33.0 Vital signs have been reviewed and appear to be correct. Blood pressure normal. Heart rate slightly tachycardic. Respiratory rate normal. Temperature normal. Oxygen saturation normal. Const General: cooperative, healthy appearing and no acute distress Orientation/consciousness: oriented to person, oriented to place, oriented to time and patient oriented x3 Limitations: no limitations HENMT Head: Yes normocephalic and Yes atraumatic Ears: external ears normal General nose exam: Normal external nose present Face and sinus: Yes face symmetric Mouth: oropharynx normal and moist mucous membranes Throat: Yes uvula midline Eyes Pupils: Equal, round and reactive pupils present Neck Neck: Yes normal visual inspection and Yes supple Resp Effort & Inspection: normal respiratory effort and able to speak in complete sentences Auscultation: clear to auscultation bilaterally Cardio Rate: regular rate Rhythm: regular rhythm Heart sounds: S1 normal heart sound present and S2 normal heart sound present GI Inspection: Yes normal to inspection Palpation (GI): Soft to palpation, Tenderness to palpation present (GI) in the LLQ (mildly) and in the RLQ (mildly), no guarding and No Rebound tenderness present Auscultation: normoactive bowel sounds General: Yes no CVA tenderness Back/Spine/Pelvis Back: no CVA tenderness Skin General skin exam: elasticity normal and turgor normal Neuro General: oriented to person, oriented to place, oriented to time, patient oriented x3, moves all extremities, no focal motor deficits and CN's II-XI intact bilaterally Cranial nerves: Yes Equal, round and reactive pupils present Cognition (Neuro): normal cognition Extrem General: Yes full ROM, Yes no pedal edema and Yes no calf tenderness Psych Mental Status: mental status grossly normal Affect: normal affect Thought process: Normal thought process present Medical Decision Making Medical Decision Making MDM Narrative: Patient is a 23-year-old male presenting to the emergency department with ongoing lower abdominal pain, diarrhea, nausea, and vomiting. On exam patient is awake, A+Ox3, VS WNL, afebrile, normal neurological exam without focal deficits, physical exam findings as above. Given reported symptoms and physical exam findings, initial differential includes gastritis, gastroenteritis, UTI, appendicitis, colitis, electrolyte abnormality, mesenteric adenitis, anemia, cholecystitis, pancreatitis. Labs notable for leukocytosis improved from visit on 05/08. Review of CT scan from 05/08 reveals no evidence of renal or ureteral calculi. Urinalysis notable for 2+ blood, positive nitrites, and calcium oxalate crystals. Give patient's lower abdominal discomfort, will treat for UTI at this time with cefuroxime and pyridium. Do not feel repeat imaging is indicated at this time, this was discussed with patient and he is in agreement with this. Stool negative for C. diff. GI panel negative. Feel patient is stable for discharge home on p.o. cefuroxime, will prescribe zofran for nausea. Strict return precautions discussed at bedside. Instructed patient to follow up with PCP. Patient verbalized understanding of and agreement with plan. Differential Diagnosis Differential Diagnoses: The differential diagnosis associated with the presentation includes As per [facility] Admission/Observation Consideration of admission/observation: Escalation of care including admission/observation considered Patient would have been admitted to the hospital had their work up had any findings where hospital admission was appropriate and their clinical presentation warranted hospital admission. Lab Data [facility] Lab Attestation statement: I reviewed the patient's lab results. As per [facility] 05/13/23 08:03 05/13/23 08:03 Labs: Lab Results 05/13/23 05/13/23 05/13/23 Range/Units 08:03 08:26 08:27 WBC 17.7 H (4.8-10.8) X10*3/uL RBC 5.56 (4.60-5.80) X10*6/uL Hgb 15.5 (14.0-18.0) g/dl Hct 45.5 (42.0-52.0) % MCV 81.8 (80.0-98.0) fL MCH 27.9 (27.0-33.0) pg MCHC 34.1 (31.0-36.0) g/dl RDW 12.0 (11.0-16.0) % Plt Count 350 (160-400) X10*3/uL MPV 8.1 L (9.4-12.4) fL Immature Gran % (Auto) 0.6 H (0.0-0.4) % Neut % (Auto) 78.3 H (45-73) % Lymph % (Auto) 9.9 L (20-40) % Desha % (Auto) 7.1 (2-11) % Eos % (Auto) 3.6 (0-4) % Baso % (Auto) 0.5 (0-2) % Lymph # (Auto) 1.8 (1.2-4.9) X10*3/uL Desha # (Auto) 1.3 H (0.1-1.2) X10*3/uL Eos # (Auto) 0.6 H (0.0-0.4) X10*3/uL Baso # (Auto) 0.1 (0.0-0.2) X10*3/uL Abs Immat Gran (auto) 0.10 H (0.00-0.03) X10*3/uL Absolute Neuts (auto) 13.9 H (2.0-8.3) x10*3/uL Absolute Nucleated RBC 0.000 (0.0-0.012) X10*3/uL Nucleated RBC % (auto) 0.0 (0.0-0.2) /100WBC Sodium 136 (135-145) mmol/L Potassium 4.2 (3.3-5.1) mmol/L Chloride 101 (96-108) mmol/L Carbon Dioxide 19 L (22-29) mmol/L Anion Gap 16 (12-20) BUN 13 (9-16) mg/dL Creatinine 0.90 (0.5-1.4) mg/dL Estim Creat Clear Calc 153.1 Estimated GFR > 60 Random Glucose 103 (60-115) mg/dL Calcium 9.9 (8.4-10.2) mg/dL Total Bilirubin 0.2 (0.0-1.0) mg/dL AST 13 (5-37) U/L ALT 21 (0-40) U/L Alkaline Phosphatase 172 H (39-117) U/L Total Protein 8.4 H (6.5-8.0) g/dL Albumin 4.4 (3.5-5.0) g/dL Urine Color Yellow Urine Appearance Hazy Urine pH 6.5 (5.0-9.0) Ur Specific [place] >= 1.030 H (1.005-1.025) Urine Protein 30 (1+) H (Neg-Trace) mg/dL Urine Glucose (UA) Negative (Negative) mg/dL Urine Ketones 15 (Negative) mg/dL Urine Blood Moderate (2+) H (Negative) Urine Nitrite Positive H (Negative) Ur Leukocyte Esterase Negative (Negative) Urine RBC 3-5 H (0-2) /HPF Urine WBC 0-5 (0-5) /HPF Ur Squamous Epith Cells 0-2 (0-2) /HPF Calcium Oxalate Crystal Present Urine Bacteria None Seen (None Seen) Hyaline Casts 0-2 (0-2) /LPF Stl C. cayetanensis PCR Not Detected (Not Detect.) Stool Rotavirus A PCR Not Detected (Not Detect.) Stl Adenov F 40/41 PCR Not Detected (Not Detect.) Stool Astrovirus (PCR) Not Detected (Not Detect.) Stool Campylobacter PCR Not Detected (Not Detect.) Stool Cryptosporidium PCR Not Detected (Not Detect.) Stl Sh Tox Pr E STEC PCR Not Detected (Not Detect.) Stool E coli O157 PCR Not applicable (Not Detect.) Stl Enterotoxigenic E PCR Not Detected (Not Detect.) Stool EPEC (PCR) Not Detected (Not Detect.) Stool EAEC (PCR) Not Detected (Not Detect.) Stl E. histolytica PCR Not Detected (Not Detect.) Stool Giardia Lamblia PCR Not Detected (Not Detect.) Stl P. shigelloides PCR Not Detected (Not Detect.) Stool Salmonella PCR Not Detected (Not Detect.) Stool Sapovirus (PCR) Not Detected (Not Detect.) Stl Shigella/EIEC PCR Not Detected (Not Detect.) St Y.enterocolitica PCR Not Detected (Not Detect.) Stool Vibrio (PCR) Not Detected (Not Detect.) Stl Vibrio cholerae PCR Not Detected (Not Detect.) Stl Norovirus GI/GII PCR See Comment (Not Detect.) C. difficile Tox B Gene NEGATIVE (Negative) External Record Review External record reviewed: Inpatient record, Office record and Outpatient record Prescription Management I considered prescription management with: Antibiotic and Other Medications Administered Discontinued Medications Generic Name Dose Route Start Last Admin Trade Name Freq PRN Reason Stop Dose Admin Ketorolac Tromethamine 30 mg 05/13/23 08:59 05/13/23 09:09 Ketorolac Tromethamine 30 Mg/Ml Vial IM 05/13/23 09:00 30 mg ONCE ONE Administration Discharge Plan Discharge Clinical Impression: Urinary tract infection Abdominal pain Qualifiers: Abdominal location: lower abdomen, unspecified Qualified Code(s): R10.30 - Lower abdominal pain, unspecified Patient Disposition: Home, Self-Care Instructions: Urinary Tract Infection in Men (ED) Additional Instructions: You have been evaluated in the emergency department today for abdominal pain. Your evaluation, including urinalysis, suggests that your symptoms are due to urinary tract infection. Please take your prescribed antibiotics for the full course of medication as directed. You are being prescribed ondansetron which you can use every 8 hours for nausea. You are being prescribed phenazopyridine for pain. Please follow-up with your primary care provider within 2 days. Return to the emergency department if you experience fevers 100.4? F or greater, worsening or uncontrolled pain, vomiting, flank pain, or for any other concerning symptoms. Prescriptions: New ondansetron 4 mg tablet,disintegrating 4 mg PO Q8H PRN (Reason: nausea and vomiting) Qty: 10 0RF cefuroxime axetil 500 mg tablet 500 mg PO BID Qty: 13 0RF phenazopyridine 100 mg tablet 100 mg PO TID PRN (Reason: pain) Qty: 6 0RF No Action sulfamethoxazole-trimethoprim [Bactrim DS] 800-160 mg tablet 1 tab PO Q12H Qty: 10 0RF Stand Alone Forms: Work/School Release Print Language: Wallisian
[2023-05-13 07:56] VITALS: BP 128/91; PULSE 68; RESP 19; TEMP 36.8; O2SAT 96
[2023-05-13 08:07] LABS: MANUAL DIFF FLAG NO
[2023-05-13 08:12] LABS: Basophils Absolute Auto 0.1 X10*3/uL (0.0-0.2); Basophils Percent Auto 0.5 % (0-2); Eosinophils Absolute Auto 0.6 X10*3/uL (0.0-0.4); Eosinophils Percent Auto 3.6 % (0-4); Hematocrit 45.5 % (42.0-52.0); Hemoglobin 15.5 g/dl (14.0-18.0); Imm Gran Pct Auto 0.6 % (0.0-0.4); Lymphocytes Absolute Auto 1.8 X10*3/uL (1.2-4.9); Lymphocytes Percent Auto 9.9 % (20-40); Mean Corpuscular HGB Conc 34.1 g/dl (31.0-36.0); Mean Corpuscular Hemoglobin 27.9 pg (27.0-33.0); Mean Corpuscular Volume 81.8 fL (80.0-98.0); Mean Platelet Volume 8.1 fL (9.4-12.4); Monocytes Absolute Auto 1.3 X10*3/uL (0.1-1.2); Monocytes Percent Auto 7.1 % (2-11); Neutrophils Absolute Auto 13.9 x10*3/uL (2.0-8.3); Neutrophils Percent Auto 78.3 % (45-73); Platelet Count 350 X10*3/uL (160-400); Red Blood Count 5.56 X10*6/uL (4.60-5.80); White Blood Count 17.7 X10*3/uL (4.8-10.8)
[2023-05-13 08:34] LABS: Appearance Urine Hazy; Color Urine Yellow; Glucose Urine UA Negative (Negative); Leukocyte Esterase Urine Negative (Negative); Nitrite Urine Positive (Negative); PH 6.5 (5.0-9.0); Specific Gravity - Urine >= 1.030 (1.005-1.025); UMIC TRIGGER UACC YES; Urine Blood Moderate (2+) (Negative); Urine Ketones 15 mg/dL (Negative); Urine Protein 30 (1+) mg/dL (Neg-Trace)
[2023-05-13 08:51] LABS: Squamous Epithelial Cell Urine 0-2 /HPF (0-2); UACC Culture Trigger YES; WBC Urine 0-5 /HPF (0-5)
[2023-05-13 08:52] LABS: Bacteria Urine None Seen (None Seen); Calcium Oxalate Crystals Urine Present; Hyaline Casts Urine 0-2 /LPF (0-2)
[2023-05-13] MEDS: Ketorolac Tromethamine 30 MG/ML VIAL IM (09:09)
[2023-05-13 09:47] LABS: CDiff Gene PCR NEGATIVE (Negative)
[2023-05-13 10:16] LABS: Adenovirus F 40/41 Not Detected (Not Detect.); Astrovirus Not Detected (Not Detect.); Campylobacter Not Detected (Not Detect.); Cryptosporidium Not Detected (Not Detect.); Cyclospora cayetanensis Not Detected (Not Detect.); E. coli EAEC Not Detected (Not Detect.); E. coli EPEC Not Detected (Not Detect.); E. coli ETEC Not Detected (Not Detect.); E. coli STEC Not Detected (Not Detect.); Entamoeba histolytica Not Detected (Not Detect.); Giardia lamblia Not Detected (Not Detect.); Plesiomonas shigelloides Not Detected (Not Detect.); Rotavirus A Not Detected (Not Detect.); Salmonella Not Detected (Not Detect.); Sapovirus Not Detected (Not Detect.); Shigella sp./EIEC Not Detected (Not Detect.); Vibrio Not Detected (Not Detect.); Vibrio Cholerae Not Detected (Not Detect.); Yersinia enterocolitica Not Detected (Not Detect.)
[2023-05-13 10:49] LABS: Chloride 101 mmol/L (96-108); Potassium 4.2 mmol/L (3.3-5.1); Sodium 136 mmol/L (135-145)
[2023-05-13 10:50] LABS: Alanine Aminotransferase 21 U/L (0-40); Albumin Level 4.4 g/dL (3.5-5.0); Alkaline Phosphatase 172 U/L (39-117); Anion Gap 16 (12-20); Aspartate Amino Transferase 13 U/L (5-37); Bilirubin Total 0.2 mg/dL (0.0-1.0); Blood Urea Nitrogen 13 mg/dL (9-16); Calcium 9.9 mg/dL (8.4-10.2); Carbon Dioxide 19 mmol/L (22-29); Creatinine Clr Calc Pharmacy 153.1; Estimated Glomerular Filt Rate > 60; Glucose Random 103 mg/dL (60-115); Total Protein 8.4 g/dL (6.5-8.0)
--- NOTE | 2023-05-13 10:55 | PC.NURSE ---
pt a&o x4, pleasant, calm, and cooperative. pt ambulates independently. mom at bedside. reporting 7/10 abdominal pain post med administration. pt sts pain decrease with heat packs. pt currently resting quietly on stretcher in no apparent distress. awaiting chem lab results. call trejo within reach. plan of care ongoing.
[2023-05-13 12:12] VITALS: BP 113/74; PULSE 69; RESP 19; TEMP 37.1; O2SAT 98
[2023-05-13] MEDS: Phenazopyridine HCL 200 MG TABLET PO (12:27)
[2023-05-13] MEDS: cefuroxime axetiL 500 MG TABLET PO (12:29)
[2023-05-13 12:31] VITALS: BP 137/78; PULSE 61; RESP 16; TEMP 36.7; O2SAT 97
== END 2023-05-13 12:35 | disposition home or self-care (01) ==
PROVIDERS: Registered Nurse Emergency; Emergency Provider Student in an Organized Health Care Education/Training Program
DX: N39.0 Urinary tract infection, site not specified (principal); R10.30 Lower abdominal pain, unspecified; R11.2 Nausea with vomiting, unspecified; R19.7 Diarrhea, unspecified; D89.89 Other specified disorders involving the immune mechanism, not elsewhere classified; Z79.899 Other long term (current) drug therapy
CPT/HCPCS: 36415; 80053; 81001; 85025; 87086; 87493; 87507; 96372; 99284; J1885

== ENCOUNTER 2023-06-03 07:37 | Emergency (ER) | payer MEDICAID, SELFPAY ==
--- NOTE | ~2023-06-03 | CT_ITS ---
EXAMINATION: CT ABDOMEN AND PELVIS WITH CONTRAST CLINICAL INFORMATION: Severe lower abdominal pain COMPARISON: CT abdomen and pelvis 05/09/2023 TECHNIQUE: Multidetector volumetric images were obtained from the superior aspect of the liver through the pubic symphysis following administration 85 mL of Omnipaque 350 intravenous contrast. Sagittal and coronal reformatted images were obtained on the technologist's workstation. Oral contrast: No This CT examination was performed using dose optimization techniques as appropriate, variously including the following: *Automated exposure control *Adjustment of mA and/or kV according to patient size (this includes techniques or standardized protocols for targeted exams where dose is matched to indication/reason for exam; i.e. extremities or head) *Use of iterative reconstruction technique DLP: 672 mGy-cm FINDINGS: LUNG BASES: Unremarkable. ABDOMINAL AND PELVIC WALL: There is partially imaged asymmetric left retroareolar soft tissue possibly reflective of gynecomastia, recommend correlation with clinical exam. LIVER AND BILIARY TREE: Unremarkable. GALLBLADDER: Unremarkable. PANCREAS: Unremarkable. SPLEEN: Unremarkable. ADRENAL GLANDS: Unremarkable. KIDNEYS AND URETERS: Unremarkable. GASTROINTESTINAL TRACT: There is colonic wall thickening involving the transverse colon with infiltration of the pericolonic fat, suspicious for colitis. Colonic diverticuli are present however no particular diverticulum appears focally inflamed to favor diverticulitis. The appendix measures upper limits of normal to minimally dilated at the base measuring 6 to 7 mm similar to prior with some trace possible periappendiceal fat stranding involving the tip of the appendix, which is nondilated, 3:80, where there is also some circumscribed appearance of the fat, 8:75. VASCULAR: Unremarkable. LYMPH NODES/PERITONEUM: There are multiple prominent mesenteric lymph nodes which may be reactive. FREE FLUID: None. BLADDER: Urinary bladder is under distended though appears thick-walled relative degree of underdistention, recommend correlation with urinalysis and any symptoms of cystitis. PELVIC VISCERA: Unremarkable. OSSEOUS STRUCTURES: Unremarkable. CT/CT abdomen pelvis w IV con IMPRESSION: 1. There is colonic wall thickening involving the transverse colon with infiltration of the pericolonic fat, suspicious for colitis, with multiple prominent mesenteric lymph nodes which may be reactive, recommend correlation with any history of inflammatory bowel disease. Colonic diverticuli are present however no particular diverticulum appears focally inflamed to favor diverticulitis. 2. The appendix measures upper limits of normal to minimally dilated at the base measuring 6 to 7 mm similar to prior. There is some trace periappendiceal fat stranding involving the tip of the appendix, which is nondilated, where there is also some circumscribed appearance of the fat in the region of inflammation. Differential considerations could include involvement of inflammatory bowel disease, early/equivocal appendicitis, or epiploic appendagitis, recommend correlation with clinical symptoms. 3. Urinary bladder is under distended though appears thick-walled relative degree of underdistention, recommend correlation with urinalysis and any symptoms of cystitis. 4. There is partially imaged asymmetric left retroareolar soft tissue possibly reflective of gynecomastia, recommend correlation with clinical exam.
[2023-06-03 07:44] VITALS: BP 149/96; PULSE 97; RESP 18; TEMP 36.7; O2SAT 94; BMI 31.1
--- NOTE | 2023-06-03 07:44 | ED_ITS ---
HPI - Abdominal Pain General Chief Complaint: Abdominal Pain Stated Complaint: Abd pain Time Seen by Provider: 06/03/23 07:43 Source: patient Mode of arrival: ambulatory Limitations: no limitations History of Present Illness HPI narrative: 23 yo male presenting to the ER for the 3rd time this month for lower abdominal pain. He was initially seen on 05/08 and admitted briefly for mesenteric adenitis. He was seen again on 05/12 and found to have UTI and treated with abx. He states he completed 2 courses of antibiotics and he has been having ongoing lower abdominal pain. He states the pain is sharp and radiates from right to left and left to right when he turned [id number] in his lower abdomen. He reports difficulty urinating. He reports for the last week he has had nausea and recurrent vomiting. He also reports 8 or 9 episodes of diarrhea each day. He states diarrhea has no blood, mostly brown but sometimes orange in color. MD elicited complaint: abdominal pain Pertinent past history: other (Mesenteric adenitis) Onset (ago): week(s) Pain Consistency: constant Location: RLQ and LLQ Severity: moderate Quality: stabbing and aching Migration to: LLQ and RLQ Exacerbating factors: eating and movement Relieving factors: nothing Context: history of similar episodes Associated symptoms: nausea, vomiting and diarrhea Related Data Previous Rx's ?Medication ?Instructions ?Recorded sulfamethoxazole 800 1 tab PO Q12H #10 tabs 05/10/23 mg-trimethoprim 160 mg tablet (Bactrim DS) cefuroxime axetil 500 mg tablet 500 mg PO BID #13 tabs 05/13/23 ondansetron 4 mg disintegrating 4 mg PO Q8H PRN nausea and 05/13/23 tablet vomiting #10 tabs phenazopyridine 100 mg tablet 100 mg PO TID PRN pain 6 doses #6 05/13/23 tabs dicyclomine 10 mg capsule 10 mg PO QID PRN abdominal pain 06/03/23 #20 caps ibuprofen 600 mg tablet 600 mg PO Q8H PRN pain #14 tabs 06/03/23 levofloxacin 500 mg tablet 500 mg PO DAILY #7 tabs 06/03/23 ondansetron 4 mg disintegrating 4 mg PO Q8H PRN nausea and 06/03/23 tablet vomiting #3 tabs Allergies Allergy/AdvReac Type Severity Reaction Status Date / Time amoxicillin [AMOXICILLIN] Allergy Unknown RASH Verified 06/03/23 07:44 Review of Systems Review of Systems Yes all other systems are reviewed and are negative [facility] Past Medical History Medical History Asthma Social History Social History Patient Tobacco Use Status: Never used Tobacco Smoked in Last 30 Days: Yes Use of substances other than those prescribed or required for medical reasons: No Advance Directives: No Advance Directives Information Provided: No Do you have a plan to hurt others: No Plan service: No Physical Exam ED Vital Signs: Vital Signs - 24 hr 06/03/23 07:44 06/03/23 08:45 06/03/23 10:28 Temperature 98.1 F 98.9 F 98.1 F Pulse Rate 97 76 81 Respiratory Rate 18 18 18 Blood Pressure 149/96 H 118/68 116/65 Pulse Oximetry 94 94 97 Oxygen Delivery Method Room Air Room Air Room Air 06/03/23 12:04 Temperature 97.8 F Pulse Rate 82 Respiratory Rate 16 Blood Pressure 123/80 Pulse Oximetry 97 Oxygen Delivery Method Room Air BMI result Body Mass Index 31.1 Appearance: Alert. Oriented X3. No acute distress. Head: normocephalic, atraumatic. Eyes: Pupils equal, round and reactive to light. ENT: Pharynx normal. No tonsillar swelling or exudate. Neck: Normal inspection. Neck supple. CVS: Normal heart rate and rhythm. Pulses normal. Respiratory: No respiratory distress. Breath sounds normal. Abdomen: Soft with mild lower abdominal tenderness to deep palpation in the pelvis, no tenderness at mcburneys point, no rebound or guarding, normal active BS x4 Skin: Skin warm and dry. Normal skin color. Normal skin turgor. No rashes. Extremities: No lower extremity edema. No joint swelling. Neuro/psych: Oriented X 3. No motor deficit. No sensory deficit. CN II-XII intact. Normal speech and cognition. Medical Decision Making Medical Decision Making MDM Narrative: 23 yo male presenting to the ER for the 3rd time this month for lower abdominal pain. He was initially seen on 05/08 and admitted briefly for mesenteric adenitis. Patient reports pain has been ongoing despite 2 different courses of antibiotics. He was treated for UTI which ended up being a negative urine culture. He states over the last week he developed vomiting and diarrhea. Given his recent antibiotic use there was concern for C diff however this was tested today and was negative. His other lab work was largely unremarkable, he does have a persistent leukocytosis although it is improving. He does have inflammatory markers that are elevated however no baseline to compare. A CT scan of the abdomen and pelvis was repeated today which is showing colitis of the transverse colon. The appendix appears similar in size 6-7 mm, similar findings from prior CT scan a month ago. Doubt this is acute appendicitis given improving leukocytosis and stable findings on CT scan. Has no point tenderness in the right lower quadrant. His urinalysis is negative for infection. Was given IV fluids and morphine and pain is improved to a 4/10. He is feeling better. We discussed the possibility of being admitted to the hospital again versus going home with oral antibiotics and pain control with GI follow-up. Patient opted to be discharged home with outpatient follow-up. We discussed the need for GI follow-up and colonoscopy for possible inflammatory bowel disease. He denies any history of inflammatory bowel disease in his family. No blood in his stool. At this time patient is stable for discharge home with outpatient follow-up. Differential Diagnosis Differential Diagnoses: The differential diagnosis associated with the presentation includes Acute appendicitis, cholecystitis, colitis, diverticulitis, gastroenteritis, bacterial gastroenteritis, colonic abscess, inflammatory bowel disease Admission/Observation Consideration of admission/observation: Escalation of care including admission/observation considered Lab Data MDM Lab Attestation statement: I reviewed the patient's lab results. improving leukocytosis 06/03/23 08:07 06/03/23 08:07 Labs: Lab Results 06/03/23 06/03/23 06/03/23 Range/Units 08:07 09:03 09:04 WBC 15.5 H (4.8-10.8) X10*3/uL RBC 4.84 (4.60-5.80) X10*6/uL Hgb 13.4 L (14.0-18.0) g/dl Hct 40.7 L (42.0-52.0) % MCV 84.1 (80.0-98.0) fL MCH 27.7 (27.0-33.0) pg MCHC 32.9 (31.0-36.0) g/dl RDW 12.3 (11.0-16.0) % Plt Count 368 (160-400) X10*3/uL MPV 8.0 L (9.4-12.4) fL Immature Gran % (Auto) 0.5 H (0.0-0.4) % Neut % (Auto) 73.3 H (45-73) % Lymph % (Auto) 10.6 L (20-40) % [place] % (Auto) 9.8 (2-11) % Eos % (Auto) 5.3 H (0-4) % Baso % (Auto) 0.5 (0-2) % Lymph # (Auto) 1.6 (1.2-4.9) X10*3/uL [place] # (Auto) 1.5 H (0.1-1.2) X10*3/uL Eos # (Auto) 0.8 H (0.0-0.4) X10*3/uL Baso # (Auto) 0.1 (0.0-0.2) X10*3/uL Abs Immat Gran (auto) 0.07 H (0.00-0.03) X10*3/uL Absolute Neuts (auto) 11.3 H (2.0-8.3) x10*3/uL Absolute Nucleated RBC 0.000 (0.0-0.012) X10*3/uL Nucleated RBC % (auto) 0.0 (0.0-0.2) /100WBC Smear Tech's Comments VERIFIED ESR 67 H (0-15) MM/HR Sodium 139 (135-145) mmol/L Potassium 3.9 (3.3-5.1) mmol/L Chloride 100 (96-108) mmol/L Carbon Dioxide 27 (22-29) mmol/L Anion Gap 16 (12-20) BUN 9 (9-16) mg/dL Creatinine 0.77 (0.5-1.4) mg/dL Estim Creat Clear Calc 173.8 Estimated GFR > 60 Random Glucose 109 (60-115) mg/dL Calcium 9.5 (8.4-10.2) mg/dL Magnesium 2.1 (1.6-2.6) mg/dL Total Bilirubin 0.5 (0.0-1.0) mg/dL Direct Bilirubin 0.2 (0.0-0.5) mg/dL AST 14 (5-37) U/L ALT 26 (0-40) U/L Alkaline Phosphatase 143 H (39-117) U/L C-Reactive Protein 9.89 H (< or = 0.50) mg/dL Total Protein 7.9 (6.5-8.0) g/dL Albumin 4.0 (3.5-5.0) g/dL Hold Yellow Top See Note Urine Color Dark Yellow Urine Appearance Clear Urine pH 6.0 (5.0-9.0) Ur Specific [place] >= 1.030 H (1.005-1.025) Urine Protein 30 (1+) H (Neg-Trace) mg/dL Urine Glucose (UA) Negative (Negative) mg/dL Urine Ketones >=160 (Negative) mg/dL Urine Blood Trace H (Negative) Urine Nitrite Negative (Negative) Ur Leukocyte Esterase Trace H (Negative) Urine RBC 6-10 H (0-2) /HPF Urine WBC 0-5 (0-5) /HPF Ur Squamous Epith Cells 0-2 (0-2) /HPF Urine Bacteria None Seen (None Seen) Hyaline Casts 3-5 (0-2) /LPF C. difficile Tox B Gene NEGATIVE (Negative) Independent Interpretation I performed an independent interpretation of an: CT Scan Interpretation: No air-fluid levels, no significant pericolonic stranding or visible abscess. Agree with radiology read Radiology Impression Discussion of test interpretation with radiology: I have reviewed the radiologist's reading. Radiologist Impression: EXAMINATION: CT ABDOMEN AND PELVIS WITH CONTRAST CLINICAL INFORMATION: Severe lower abdominal pain COMPARISON: CT abdomen and pelvis 05/09/2023 TECHNIQUE: Multidetector volumetric images were obtained from the superior aspect of the liver through the pubic symphysis following administration 85 mL of Omnipaque 350 intravenous contrast. Sagittal and coronal reformatted images were obtained on the technologist's workstation. Oral contrast: No This CT examination was performed using dose optimization techniques as appropriate, variously including the following: *Automated exposure control *Adjustment of mA and/or kV according to patient size (this includes techniques or standardized protocols for targeted exams where dose is matched to indication/reason for exam; i.e. extremities or head) *Use of iterative reconstruction technique DLP: 672 mGy-cm FINDINGS: LUNG BASES: Unremarkable. ABDOMINAL AND PELVIC WALL: There is partially imaged asymmetric left retroareolar soft tissue possibly reflective of gynecomastia, recommend correlation with clinical exam. LIVER AND BILIARY TREE: Unremarkable. GALLBLADDER: Unremarkable. PANCREAS: Unremarkable. SPLEEN: Unremarkable. ADRENAL GLANDS: Unremarkable. KIDNEYS AND URETERS: Unremarkable. GASTROINTESTINAL TRACT: There is colonic wall thickening involving the transverse colon with infiltration of the pericolonic fat, suspicious for colitis. Colonic diverticuli are present however no particular diverticulum appears focally inflamed to favor diverticulitis. The appendix measures upper limits of normal to minimally dilated at the base measuring 6 to 7 mm similar to prior with some trace possible periappendiceal fat stranding involving the tip of the appendix, which is nondilated, 3:80, where there is also some circumscribed appearance of the fat, 8:75. VASCULAR: Unremarkable. LYMPH NODES/PERITONEUM: There are multiple prominent mesenteric lymph nodes which may be reactive. FREE FLUID: None. BLADDER: Urinary bladder is under distended though appears thick-walled relative degree of underdistention, recommend correlation with urinalysis and any symptoms of cystitis. PELVIC VISCERA: Unremarkable. OSSEOUS STRUCTURES: Unremarkable. CT/CT abdomen pelvis w IV con IMPRESSION: 1. There is colonic wall thickening involving the transverse colon with infiltration of the pericolonic fat, suspicious for colitis, with multiple prominent mesenteric lymph nodes which may be reactive, recommend correlation with any history of inflammatory bowel disease. Colonic diverticuli are present however no particular diverticulum appears focally inflamed to favor diverticulitis. 2. The appendix measures upper limits of normal to minimally dilated at the base measuring 6 to 7 mm similar to prior. There is some trace periappendiceal fat stranding involving the tip of the appendix, which is nondilated, where there is also some circumscribed appearance of the fat in the region of inflammation. Differential considerations could include involvement of inflammatory bowel disease, early/equivocal appendicitis, or epiploic appendagitis, recommend correlation with clinical symptoms. 3. Urinary bladder is under distended though appears thick-walled relative degree of underdistention, recommend correlation with urinalysis and any symptoms of cystitis. 4. There is partially imaged asymmetric left retroareolar soft tissue possibly reflective of gynecomastia, recommend correlation with clinical exam. Independent Historian Clinical information obtained from an independent historian. History obtained from or confirmed by: Parent External Record Review External record reviewed: Outpatient record, Prior outpatient labs and Prior outpatient radiology Prescription Management I considered prescription management with: Pain Medication and Antibiotic Medications Administered Discontinued Medications Generic Name Dose Route Start Last Admin Trade Name Shahla PRN Reason Stop Dose Admin Al Hydroxide/Mg Hydroxide 30 ml 06/03/23 10:20 06/03/23 10:31 Magnesium Hydrox/Alum Hydrox 30 Ml Oral.Susp PO 06/03/23 10:21 30 ml ONCE ONE Administration Sodium Chloride 1,000 mls @ 999 mls/hr 06/03/23 08:00 06/03/23 08:56 Ns IVCONT 06/03/23 09:00 Infused .Q1H1M PAUL Infusion Iohexol 85 ml 06/03/23 09:48 06/03/23 09:49 Iohexol 350 Mg/Ml 100 Ml Infus..Btl IV 06/03/23 09:49 85 ml ONCE ONE Administration Morphine Sulfate 4 mg 06/03/23 07:58 06/03/23 08:20 Morphine Sulfate 4 Mg/Ml Cartridge IVPUSH 06/03/23 07:59 4 mg ONCE ONE Administration Protocol Ondansetron HCl 4 mg 06/03/23 07:54 06/03/23 08:18 Ondansetron Hcl 4 Mg/2 Ml Vial IVPUSH 06/03/23 07:55 4 mg ONCE ONE Administration Simethicone 160 mg 06/03/23 10:20 06/03/23 10:31 Simethicone 80 Mg Tab.Chew PO 06/03/23 10:21 160 mg ONCE ONE Administration Critical Care Time Critical Care Time Critical Care Time: Yes Total Critical Care Time: 32 Attestation: I have personally provided critical care time exclusive of time spent on separately billable procedures. Time includes review of lab data, radiology results, bedside reassessment of hemodynamics and pain after IV fluids, and monitoring for potential decompensation. Intervention performed as documented. Discharge Plan Discharge Clinical Impression: Colitis Patient Disposition: Home, Self-Care Instructions: Colitis (ED) Additional Instructions: Your lab work today showed an improving white blood cell count. Your urinalysis did not show any evidence of infection. You tested negative for C diff. The rest of your stool studies are still pending. If anything is positive we will call you. Your CT scan showed some colonic wall thickening of the transverse colon. The appendix looks similar to your prior CT scan 1 month ago. Recommend taking the prescribed antibiotics as directed for treatment of possible infectious cause of your colitis. Recommend a clear liquid diet for the next 48-72 hours. Slowly advance your diet beyond clear liquids if your pain is improved. Stick to a bland diet where not feeling well. No greasy food, take out food, food high in fat or dairy. Recommend following up with GI for further evaluation and treatment. You may need a colonoscopy for further evaluation of colitis. Call for an appointment If you develop new or worsening symptoms call 911 or come back to the ER for further evaluation. Prescriptions: New levofloxacin 500 mg tablet 500 mg PO DAILY Qty: 7 0RF ibuprofen 600 mg tablet 600 mg PO Q8H PRN (Reason: pain) Qty: 14 0RF ondansetron 4 mg tablet,disintegrating 4 mg PO Q8H PRN (Reason: nausea and vomiting) Qty: 3 0RF dicyclomine 10 mg capsule 10 mg PO QID PRN (Reason: abdominal pain) Qty: 20 0RF No Action sulfamethoxazole-trimethoprim [Bactrim DS] 800-160 mg tablet 1 tab PO Q12H Qty: 10 0RF ondansetron 4 mg tablet,disintegrating 4 mg PO Q8H PRN (Reason: nausea and vomiting) Qty: 10 0RF cefuroxime axetil 500 mg tablet 500 mg PO BID Qty: 13 0RF phenazopyridine 100 mg tablet 100 mg PO TID PRN (Reason: pain) Qty: 6 0RF Referrals: [facility] [place] [facility] [Provider Group] (colitis) Print Language: [place] Citizen
[2023-06-03 08:18] LABS: Basophils Absolute Auto 0.1 X10*3/uL (0.0-0.2); Basophils Percent Auto 0.5 % (0-2); Eosinophils Absolute Auto 0.8 X10*3/uL (0.0-0.4); Eosinophils Percent Auto 5.3 % (0-4); Hematocrit 40.7 % (42.0-52.0); Hemoglobin 13.4 g/dl (14.0-18.0); Imm Gran Abs Auto 0.07 X10*3/uL (0.00-0.03); Imm Gran Pct Auto 0.5 % (0.0-0.4); Lymphocytes Absolute Auto 1.6 X10*3/uL (1.2-4.9); Lymphocytes Percent Auto 10.6 % (20-40); MANUAL DIFF FLAG SCAN; Mean Corpuscular HGB Conc 32.9 g/dl (31.0-36.0); Mean Corpuscular Hemoglobin 27.7 pg (27.0-33.0); Mean Corpuscular Volume 84.1 fL (80.0-98.0); Monocytes Absolute Auto 1.5 X10*3/uL (0.1-1.2); Monocytes Percent Auto 9.8 % (2-11); Neutrophils Absolute Auto 11.3 x10*3/uL (2.0-8.3); Neutrophils Percent Auto 73.3 % (45-73); Platelet Count 368 X10*3/uL (160-400); Red Blood Count 4.84 X10*6/uL (4.60-5.80); Red Cell Distribution Width 12.3 % (11.0-16.0); SCAN SMEAR FLAG 1; White Blood Count 15.5 X10*3/uL (4.8-10.8)
[2023-06-03] MEDS: ondansetron HCL 4 MG/2 ML VIAL IVPUSH (08:18)
[2023-06-03] MEDS: Morphine Sulfate 4 MG/ML CARTRIDGE IVPUSH (08:20)
[2023-06-03] MEDS: 0.9 % Sodium Chloride 1,000 ML 999 ML IVCONT (08:20)
[2023-06-03 08:27] LABS: Alanine Aminotransferase 26 U/L (0-40); Alkaline Phosphatase 143 U/L (39-117); Anion Gap 16 (12-20); Aspartate Amino Transferase 14 U/L (5-37); Bilirubin Direct 0.2 mg/dL (0.0-0.5); Bilirubin Total 0.5 mg/dL (0.0-1.0); Blood Urea Nitrogen 9 mg/dL (9-16); C Reactive Protein 9.89 mg/dL (< or = 0.50); Calcium 9.5 mg/dL (8.4-10.2); Carbon Dioxide 27 mmol/L (22-29); Chloride 100 mmol/L (96-108); Creatinine Clr Calc Pharmacy 173.8; Estimated Glomerular Filt Rate > 60; Glucose Random 109 mg/dL (60-115); Magnesium 2.1 mg/dL (1.6-2.6); Potassium 3.9 mmol/L (3.3-5.1); Sodium 139 mmol/L (135-145); Total Protein 7.9 g/dL (6.5-8.0)
[2023-06-03 08:45] VITALS: BP 118/68; PULSE 76; RESP 18; TEMP 37.2; O2SAT 94
[2023-06-03 08:49] LABS: SLIDE REVIEW VERIFIED
[2023-06-03 08:59] LABS: Erythrocyte Sedimentation Rate 67 MM/HR (0-15)
[2023-06-03 09:16] LABS: Appearance Urine Clear; Color Urine Dark Yellow; Glucose Urine UA Negative (Negative); Leukocyte Esterase Urine Trace (Negative); Nitrite Urine Negative (Negative); Specific Gravity - Urine >= 1.030 (1.005-1.025); UMIC TRIGGER UACC YES; Urine Blood Trace (Negative); Urine Ketones >=160 mg/dL (Negative); Urine Protein 30 (1+) mg/dL (Neg-Trace)
[2023-06-03 09:18] LABS: Bacteria Urine None Seen (None Seen); Squamous Epithelial Cell Urine 0-2 /HPF (0-2); WBC Urine 0-5 /HPF (0-5)
[2023-06-03] MEDS: iohexoL 350 MG/ML 100 ML INFUS..BTL 85 ML IV (09:49)
[2023-06-03 10:14] LABS: CDiff Gene PCR NEGATIVE (Negative)
[2023-06-03 10:28] VITALS: BP 116/65; PULSE 81; RESP 18; TEMP 36.7; O2SAT 97
[2023-06-03] MEDS: Simethicone 80 MG TAB.CHEW 160 MG PO (10:31)
[2023-06-03] MEDS: Magnesium Hydrox/Alum Hydrox 30 ML ORAL.SUSP PO (10:31)
[2023-06-03 11:34] LABS: Adenovirus F 40/41 Not Detected (Not Detect.); Astrovirus Not Detected (Not Detect.); Campylobacter Not Detected (Not Detect.); Cryptosporidium Not Detected (Not Detect.); Cyclospora cayetanensis Not Detected (Not Detect.); E. coli EAEC Not Detected (Not Detect.); E. coli EPEC Not Detected (Not Detect.); E. coli ETEC Not Detected (Not Detect.); E. coli STEC Not Detected (Not Detect.); Entamoeba histolytica Not Detected (Not Detect.); Giardia lamblia Not Detected (Not Detect.); Norovirus GI/GII Not Detected (Not Detect.); Plesiomonas shigelloides Not Detected (Not Detect.); Rotavirus A Not Detected (Not Detect.); Salmonella Not Detected (Not Detect.); Sapovirus Not Detected (Not Detect.); Shigella sp./EIEC Not Detected (Not Detect.); Vibrio Not Detected (Not Detect.); Vibrio Cholerae Not Detected (Not Detect.); Yersinia enterocolitica Not Detected (Not Detect.)
[2023-06-03 12:04] VITALS: BP 123/80; PULSE 82; RESP 16; TEMP 36.6; O2SAT 97
[2023-06-03 12:41] VITALS: BP 123/80; PULSE 82; RESP 16; TEMP 36.6; O2SAT 97
== END 2023-06-03 12:43 | disposition home or self-care (01) ==
PROVIDERS: Physician Assistant; Emergency Provider Student in an Organized Health Care Education/Training Program
DX: K52.9 Noninfective gastroenteritis and colitis, unspecified (principal)
CPT/HCPCS: 36415; 74177; 80048; 80076; 81001; 83735; 85025; 85652; 86140; 87493; 87507; 96361; 96374; 96375; 99284; J2270; J2405; Q9967

== ENCOUNTER 2023-06-10 07:01 | Inpatient (IN) | payer SELFPAY ==
[2023-06-10] VITALS (9 sets, daily range): BP systolic 103–135; BP diastolic 59–81; PULSE 47–70; RESP 14–18; TEMP 36–36.8; O2SAT 95–99; BMI 30.7
--- NOTE | ~2023-06-10 | CT_ITS ---
EXAMINATION: CTA ABDOMEN AND PELVIS CLINICAL INFORMATION: Concern for ischemia TECHNIQUE: Multiple axial images were obtained through the abdomen and pelvis before and after administration of 80 mL of Omnipaque intravenously. Images were evaluated on independent dedicated 3-D workstation and 3-D images were reconstructed with concurrent radiologist supervision and subsequently interpreted. Specific vascular measurements are placed directly on the 3-D rendered images and are documented and stored in PACS. This CT examination was performed using dose optimization techniques as appropriate, variously including the following: *Automated exposure control. *Adjustment of mA and/or kV according to patient size (this includes techniques or standardized protocols for targeted exams where dose is matched to indication/reason for exam, i.e., extremities or head). *Use of iterative reconstruction technique. COMPARISON: CT abdomen and pelvis 06/10/2023 DLP: 495 mGy-cm. FINDINGS: VASCULAR: Abdominal aorta: Normal in caliber Iliac arteries: Patent and normal in caliber Mesenteric arteries: The celiac artery is patent. The SMA origin is patent. Motion artifact in the proximal SMA. The mid and distal SMA are patent. Distal branches are patent. Renal arteries: Patent bilateral renal arteries. NONVASCULAR: Lung Bases: The lungs are clear with no evidence of inflammation or nodules. Liver, Gallbladder, Biliary Tree: The liver is normal in size, shape, and attenuation. No focal hepatic lesion or biliary ductal dilatation is present. The gallbladder is unremarkable with no evidence of radiopaque gallstones, gallbladder wall thickening, or pericholecystic inflammatory changes. Pancreas: Unremarkable. Spleen: Unremarkable. Adrenal Glands: Unremarkable. Kidneys and Ureters: The kidneys are normal in size, shape, and attenuation. No hydronephrosis or hydroureter or calculi seen. No perinephric stranding. Bladder: Unremarkable. Gastrointestinal Tract: The small and large bowel are unremarkable. Abdominal Wall: No hernia is demonstrated. Lymph Nodes: Prominent mesenteric lymph nodes and prominent lymph nodes along the vasa recta adjacent to the colon. Pelvic Viscera: Unremarkable. Osseous Structures: Unremarkable. CT/CT angio abdomen pelvis IMPRESSION: 1. No evidence of mesenteric ischemia. 2. Prominent mesenteric lymph nodes, especially along the ileocolic distribution, which can be seen in the setting of mesenteric adenitis.
--- NOTE | ~2023-06-10 | CT_ITS ---
EXAMINATION: CT ABDOMEN AND PELVIS WITH CONTRAST CLINICAL INFORMATION: Worsening pain. Bleeding. Elevated white cell count. COMPARISON: Previous CT of the abdomen and pelvis May 2023 TECHNIQUE: Multidetector volumetric images were obtained from the superior aspect of the liver through the pubic symphysis following administration 85 mL of Omnipaque 350 intravenous contrast. Sagittal and coronal reformatted images were obtained on the technologist's workstation. Oral contrast: Yes This CT examination was performed using dose optimization techniques as appropriate, variously including the following: *Automated exposure control *Adjustment of mA and/or kV according to patient size (this includes techniques or standardized protocols for targeted exams where dose is matched to indication/reason for exam; i.e. extremities or head) *Use of iterative reconstruction technique DLP: 711 mGy-cm FINDINGS: LUNG BASES: There is bilateral gynecomastia. This appears greater on the left. Correlation with clinical exam and mammogram recommended. The lung bases are clear. LIVER, GALLBLADDER, AND BILIARY TREE: The liver is normal in size, shape, and attenuation. No focal hepatic lesion or biliary ductal dilatation is present. The gallbladder is unremarkable with no evidence of radiopaque gallstones, gallbladder wall thickening, or obvious pericholecystic inflammatory changes. PANCREAS: Unremarkable. SPLEEN: Unremarkable. ADRENAL GLANDS: Unremarkable. KIDNEYS AND URETERS: The kidneys are normal in size, shape, and attenuation. No hydronephrosis, hydroureter, or calculi seen. No perinephric stranding. BLADDER: There is mild diffuse wall thickening of the bladder similar to prior exam. GASTROINTESTINAL TRACT there is worsening colitis compared to 06/03/2023 exam wall thickening and stranding of the pericolic fat. This is greatest in the proximal colon involving the cecum and right colon and transverse colon. There is new mild wall thickening of the left colon. The sigmoid colon and rectum are normal. The base of the appendix is slightly dilated measuring 9 mm increased from prior exam. There is a small amount of air seen in the appendix. The periappendiceal fat is normal. This is probably secondary to adjacent colitis in the cecum. The small bowel is normal. The stomach is normal. No ascites. No evidence of free air. No evidence of obstruction. ABDOMINAL WALL: No significant hernia is appreciated. LYMPH NODES: There are prominent mesenteric lymph nodes similar to prior exam VASCULAR: Unremarkable. PELVIC VISCERA: Unremarkable. OSSEOUS STRUCTURES: Unremarkable. CT/CT abdomen pelvis w IV con IMPRESSION: Worsening colitis. Similar mild diffuse wall thickening of the bladder questionable for cystitis. Bilateral gynecomastia, left greater than right. Correlation with physical exam and mammogram recommended. Fleischner guidelines were followed.
--- NOTE | 2023-06-10 07:20 | ED.ABDPAIN ---
HPI - Abdominal Pain General Chief Complaint: Abdominal Pain Stated Complaint: Abd Pain Time Seen by Provider: 06/10/23 07:15 Source: patient and old records reviewed Mode of arrival: ambulatory Limitations: no limitations History of Present Illness HPI narrative: 23 yo male with repeat visits for abdominal pain dx mesenteric adenitis / colitis and just admitted 05/09 to 05/10 left next day at his request. He was also seen on 06/02 here for abdominal pain but did not want admission and left with levofloxacin and pain control. He was referred to GI he comes back today with c/o persistent lower abdominal pain, mucousy blood stools, states he lost about 30+ lbs in that timeframe today he saw monserrat blood in BM today without straining. He states he could not get a hold of GI was on wait for a long time. He is not feeling good. He has no fam hx of Crohns, UC, lupus, RA or any autoimmune disease. This started about 1 week after return from [place] but he denies food ingestions. Mom is at bedside denies known fam hx. Grandfather had colon cancer but in 60s. in the last month he has completed ceftin, levofloxacin, bactrim and none of it has resolved his symptoms. He has had 2 CT scans showing adenitis/colitis MD elicited complaint: abdominal pain Pertinent past history: none Onset (ago): month(s) (1+) Pain Consistency: intermittent Location: RLQ and LLQ Severity: moderate Quality: cramping and aching Radiation: none Migration to: no migration Exacerbating factors: movement Relieving factors: nothing Context: history of similar episodes Associated symptoms: nausea, diarrhea, chills and hematochezia Treatments prior to arrival: other (has tried motrin, antibiotics no relief) Related Data Allergies Allergy/AdvReac Type Severity Reaction Status Date / Time amoxicillin [AMOXICILLIN] Allergy Unknown RASH Verified 06/10/23 07:10 Review of Systems Review of Systems Constitutional : pos Weight loss, No Fever, No Chills ENT/Mouth : No sore throat, No Rhinorrhea Eyes: No Swelling, No Redness Cardiovascular : No Chest Pain, No SOB, NoEdema Respiratory : No Cough, No Sputum, No Wheezing Gastrointestinal : Positive Nausea, no Vomiting, positive Diarrhea, positive abdominal Pain, pos Hematochezia, No Melena Genitourinary : No Dysuria, No Urinary Frequency, No Hematuria, No Urgency Musculoskeletal : No joint pain, No Myalgias, No Joint Swelling Skin : No Skin Lesions, No rash Neuro : No Weakness, No Numbness, No Dizziness, No Headache All other systems reviewed and are negative. [facility] Past Medical History Attestation statement: The following information was validated with the patient. Source: old records reviewed Medical History Asthma Social History Social History Patient Tobacco Use Status: Never used Tobacco Smoked in Last 30 Days: No Use of substances other than those prescribed or required for medical reasons: Yes Substance Use Type: Marijuana Substance Use Frequency: Occasionally Advance Directives: No Advance Directives Information Provided: No Do you have a plan to hurt others: No Plan service: No Physical Exam ED Vital Signs: Vital Signs - 24 hr 06/10/23 07:06 06/10/23 07:47 06/10/23 08:21 Temperature 96.8 F 97.6 F Pulse Rate 67 70 60 Respiratory Rate 16 18 14 Blood Pressure 128/81 110/67 135/75 Pulse Oximetry 98 97 99 Oxygen Delivery Method Room Air Room Air BMI result Body Mass Index 30.7 Appearance: Alert. Oriented X3. No acute distress. Eyes: Pupils equal, round and reactive to light. ENT: Pharynx normal. Neck: Normal inspection. Neck supple. CVS: Normal heart rate and rhythm. Pulses normal. Respiratory: No respiratory distress. Breath sounds normal. Abdomen: Soft and moderate lower abdominal ttp no distention no rebound Rectal: pink tinged mucous Skin: Skin warm and dry. pale skin color. Normal skin turgor. Extremities: No lower extremity edema. Neuro: Oriented X 3. No motor deficit. No sensory deficit. Course Course Course Narrative: wbc count, elevated platelets, rise in LFTs like combination of acute phase reactant as well as chronic findings on labs and not related to acute infection or severe sepsis - he has already been on antibiotics 3 times in the last month and no relief with symptoms suspect immune issue with bowels and not bacterial infection at this time pending GI input. Last took levofloxacin last night. [id number] Medical Decision Making Medical Decision Making MDM Narrative: 23 yo male with no sig PMH here with persistent abdominal pain and now with lower GIB and weight loss no hx of autoimmune diseases or IBD in family has never had colonoscopy before at this time will need labs, IVF x 2L, IV morphine for pain, guiac study, I am going to give him dose of steroids he has tried ceftin, bactrim, levofloxacin and has had no improvement he has been scanned x 2 without signs other than inflammation. I believe at this point he needs GI consult and possible colonosopy will consult and discuss and ask for admission this is is 4th visit in 1 month for same complaint and has been seen and evaluated by surgery. Differential Diagnosis Differential Diagnoses: The differential diagnosis associated with the presentation includes inflammatory bowel disease, adenitis, lower GIB Admission/Observation Consideration of admission/observation: Escalation of care including admission/observation considered will need admission for further management of this and GI involvement Consult Healthcare Provider Management of the patient was discussed with: Hospitalist (will admit) and [employer] message sent to Dr. Helm regarding his complaints - will evaluate and possibly scope when admitted Lab Data MDM Lab Attestation statement: I reviewed the patient's lab results. 06/10/23 07:18 06/10/23 07:18 Labs: Lab Results 06/10/23 06/10/23 06/10/23 Range/Units 07:18 07:43 07:52 WBC 19.4 H (4.8-10.8) X10*3/uL RBC 4.69 (4.60-5.80) X10*6/uL Hgb 13.2 L (14.0-18.0) g/dl Hct 39.1 L (42.0-52.0) % MCV 83.4 (80.0-98.0) fL MCH 28.1 (27.0-33.0) pg MCHC 33.8 (31.0-36.0) g/dl RDW 12.8 (11.0-16.0) % Plt Count 430 H (160-400) X10*3/uL MPV 8.0 L (9.4-12.4) fL Immature Gran % (Auto) 3.4 H (0.0-0.4) % Neut % (Auto) 67.7 (45-73) % Lymph % (Auto) 15.0 L (20-40) % [place] % (Auto) 10.3 (2-11) % Eos % (Auto) 3.2 (0-4) % Baso % (Auto) 0.4 (0-2) % Lymph # (Auto) 2.9 (1.2-4.9) X10*3/uL [place] # (Auto) 2.0 H (0.1-1.2) X10*3/uL Eos # (Auto) 0.6 H (0.0-0.4) X10*3/uL Baso # (Auto) 0.1 (0.0-0.2) X10*3/uL Abs Immat Gran (auto) 0.67 H (0.00-0.03) X10*3/uL Absolute Neuts (auto) 13.1 H (2.0-8.3) x10*3/uL Absolute Nucleated RBC 0.000 (0.0-0.012) X10*3/uL Nucleated RBC % (auto) 0.0 (0.0-0.2) /100WBC Sodium 139 (135-145) mmol/L Potassium 3.2 L (3.3-5.1) mmol/L Chloride 102 (96-108) mmol/L Carbon Dioxide 24 (22-29) mmol/L Anion Gap 16 (12-20) BUN 9 (9-16) mg/dL Creatinine 0.78 (0.5-1.4) mg/dL Estim Creat Clear Calc 170.7 Estimated GFR > 60 Random Glucose 119 H (60-115) mg/dL Calcium 9.4 (8.4-10.2) mg/dL Total Bilirubin 0.4 (0.0-1.0) mg/dL AST 20 (5-37) U/L ALT 49 H (0-40) U/L Alkaline Phosphatase 151 H (39-117) U/L C-Reactive Protein 10.47 H (< or = 0.50) mg/dL Total Protein 7.3 (6.5-8.0) g/dL Albumin 3.5 (3.5-5.0) g/dL Lipase 8 (8-78) U/L Urine Color Yellow Urine Appearance Cloudy Urine pH 6.5 (5.0-9.0) Ur Specific [place] >= 1.030 H (1.005-1.025) Urine Protein 100 (2+) H (Neg-Trace) mg/dL Urine Glucose (UA) See Note (Negative) mg/dL Urine Ketones Negative (Negative) mg/dL Urine Blood Negative (Negative) Urine Nitrite See Note (Negative) Ur Leukocyte Esterase Negative (Negative) Urine RBC 0-2 (0-2) /HPF Urine WBC 11-20 H (0-5) /HPF Ur Squamous Epith Cells 11-20 (0-2) /HPF Urine Bacteria None Seen (None Seen) Hyaline Casts >20 (0-2) /LPF Granular Casts Present Stool Occult Blood POSITIVE (NEGATIVE) Influenza Type A (PCR) NEGATIVE (Negative) Influenza Type B (PCR) NEGATIVE (Negative) RSV RNA Qual (PCR) NEGATIVE (Negative) SARS-CoV-2 RNA (RT-PCR) NEGATIVE (Negative) Independent Interpretation I performed an independent interpretation of an: CT Scan (worsening colitis) Independent Historian Clinical information obtained from an independent historian. History obtained from or confirmed by: Parent External Record Review External record reviewed: Inpatient record Medications Administered Discontinued Medications Generic Name Dose Route Start Last Admin Trade Name Freq PRN Reason Stop Dose Admin Sodium Chloride 1,000 mls @ 999 mls/hr 06/10/23 07:45 06/10/23 08:21 Ns IV 06/10/23 08:45 999 mls/hr .Q1H1M PAUL Administration Sodium Chloride 1,000 mls @ 999 mls/hr 06/10/23 07:53 06/10/23 07:56 Ns IV 06/10/23 08:53 999 mls/hr .Q1H1M ONE Administration Iohexol 100 ml 06/10/23 09:24 06/10/23 09:25 Iohexol 350 Mg/Ml 100 Ml Infus..Btl IV 06/10/23 09:25 85 ml ONCE ONE Administration Methylprednisolone Sodium Succinate 60 mg 06/10/23 07:44 06/10/23 07:56 Methylprednisolone Sod Succ 125 Mg/2 Ml Vial IVPUSH 06/10/23 07:45 60 mg ONCE ONE Administration Morphine Sulfate 4 mg 06/10/23 07:44 06/10/23 07:57 Morphine Sulfate 4 Mg/Ml Cartridge IVPUSH 06/10/23 07:45 4 mg ONCE ONE Administration Protocol Ondansetron HCl 4 mg 06/10/23 07:44 06/10/23 07:56 Ondansetron Hcl 4 Mg/2 Ml Vial IVPUSH 06/10/23 07:45 4 mg ONCE ONE Administration Potassium Chloride 40 meq 06/10/23 08:21 06/10/23 08:28 Potassium Chloride Packet 20 Meq Packet PO 06/10/23 08:22 40 meq ONCE ONE Administration Critical Care Time Critical Care Time Critical Care Time: Yes Total Critical Care Time: 40 Attestation: review of records, 2L of IVF, IV morphine with improvement of pain, admission, consult I attest to this time spent taking care of the patient Discharge Plan Discharge Clinical Impression: Colitis, Acute hypokalemia Abdominal pain Qualifiers: Abdominal location: lower abdomen, unspecified Qualified Code(s): R10.30 - Lower abdominal pain, unspecified Leukocytosis Qualifiers: Leukocytosis type: unspecified Qualified Code(s): D72.829 - Elevated white blood cell count, unspecified Patient Disposition: Admitted As Inpatient Print Language: Frisian
[2023-06-10 07:31] LABS: Appearance Urine Cloudy; Color Urine Yellow; Leukocyte Esterase Urine Negative (Negative); PH 6.5 (5.0-9.0); Specific Gravity - Urine >= 1.030 (1.005-1.025); UMIC TRIGGER UACC YES; Urine Blood Negative (Negative); Urine Ketones Negative (Negative); Urine Protein 100 (2+) mg/dL (Neg-Trace)
[2023-06-10 07:41] LABS: Basophils Absolute Auto 0.1 X10*3/uL (0.0-0.2); Basophils Percent Auto 0.4 % (0-2); Eosinophils Absolute Auto 0.6 X10*3/uL (0.0-0.4); Eosinophils Percent Auto 3.2 % (0-4); Hematocrit 39.1 % (42.0-52.0); Hemoglobin 13.2 g/dl (14.0-18.0); Imm Gran Abs Auto 0.67 X10*3/uL (0.00-0.03); Imm Gran Pct Auto 3.4 % (0.0-0.4); Lymphocytes Absolute Auto 2.9 X10*3/uL (1.2-4.9); Mean Corpuscular HGB Conc 33.8 g/dl (31.0-36.0); Mean Corpuscular Hemoglobin 28.1 pg (27.0-33.0); Mean Corpuscular Volume 83.4 fL (80.0-98.0); Monocytes Percent Auto 10.3 % (2-11); Neutrophils Absolute Auto 13.1 x10*3/uL (2.0-8.3); Neutrophils Percent Auto 67.7 % (45-73); Platelet Count 430 X10*3/uL (160-400); Red Blood Count 4.69 X10*6/uL (4.60-5.80); Red Cell Distribution Width 12.8 % (11.0-16.0); SCAN SMEAR FLAG 1; White Blood Count 19.4 X10*3/uL (4.8-10.8)
[2023-06-10 07:48] LABS: OBS Int Ctl Valid YES; OBS1 POSITIVE (NEGATIVE)
[2023-06-10 07:52] LABS: Bacteria Urine None Seen (None Seen); Granular Casts Urine Present; Hyaline Casts Urine >20 /LPF (0-2); RBC Urine 0-2 /HPF (0-2); UACC Culture Trigger YES
[2023-06-10 07:53] LABS: MANUAL DIFF FLAG NO
[2023-06-10] MEDS: 0.9 % Sodium Chloride 1,000 ML 999 ML IV ×2 (07:56→08:21)
[2023-06-10] MEDS: methylPREDNISolone Sod Succ 125 MG/2 ML VIAL 60 MG IVPUSH (07:56)
[2023-06-10] MEDS: ondansetron HCL 4 MG/2 ML VIAL IVPUSH (07:56)
[2023-06-10] MEDS: Morphine Sulfate 4 MG/ML CARTRIDGE IVPUSH ×2 (07:57→18:47)
[2023-06-10 08:04] LABS: Influenza A PCR NEGATIVE (Negative); Influenza B PCR NEGATIVE (Negative); Resp Syncy Virus RNA Qual PCR NEGATIVE (Negative); SARS COV2 PCR INHOUSE NEGATIVE (Negative)
[2023-06-10 08:07] LABS: Alanine Aminotransferase 49 U/L (0-40); Albumin Level 3.5 g/dL (3.5-5.0); Alkaline Phosphatase 151 U/L (39-117); Anion Gap 16 (12-20); Aspartate Amino Transferase 20 U/L (5-37); Bilirubin Total 0.4 mg/dL (0.0-1.0); Blood Urea Nitrogen 9 mg/dL (9-16); Calcium 9.4 mg/dL (8.4-10.2); Carbon Dioxide 24 mmol/L (22-29); Chloride 102 mmol/L (96-108); Creatinine Clr Calc Pharmacy 170.7; Estimated Glomerular Filt Rate > 60; Glucose Random 119 mg/dL (60-115); Lipase 8 U/L (8-78); Potassium 3.2 mmol/L (3.3-5.1); Sodium 139 mmol/L (135-145); Total Protein 7.3 g/dL (6.5-8.0)
[2023-06-10 08:19] LABS: C Reactive Protein 10.47 mg/dL (< or = 0.50)
[2023-06-10] MEDS: Potassium Chloride Packet 20 MEQ PACKET 40 MEQ PO (08:28)
[2023-06-10] MEDS: iohexoL 350 MG/ML 100 ML INFUS..BTL IV (09:25)
[2023-06-10] MEDS: HYDROmorphone HCl 0.5 MG/0.5 ML SYRINGE IVPUSH (10:37)
--- NOTE | 2023-06-10 10:45 | PHA.MEDREC ---
Pharmacy Consult ? Medication Reconciliation Pharmacy has completed the medication reconciliation. Pt reports finishing ABX.
--- NOTE | 2023-06-10 13:22 | PM.IMHP ---
History of Present Illness Date of Service: 06/10/23 Attending physician on admission: Colt Novoa Chief Complaint: Abdominal pain, BRBPR Pt is a 23-year-old male with a PMH significant for?mild intermittent asthma who presents to the ED for evaluation of lower abdominal pain x1 month and hematochezia this morning. Patient has been experiencing intermittent severe abdominal pain for the past 5 weeks with multiple presentations to the ED. Was admitted from 05/09-05/10 for mesenteric adenitis and discharged home on Bactrim. Came back on 05/12 with lower abdominal pain and treated for likely UTI with cefuroxime. UA culture ended up being negative. On 06/02 pt again presented with similar symptoms of lower abdominal pain, nausea, vomiting, and diarrhea; CT this time showed colitis of transverse colon. Did not want to be admitted and was sent home on levofloxacin. Pt reports he has completed all 3 courses of abx. Re-presented again today after this morning experienced a large amount of bright red blood per rectum. Reports he has had chronic diarrhea 6-8 episodes daily this past month. Occasionally noted a small amount of blood in stool, but nothing like today's episode. Continues to severe lower abdominal pain. Describes it as sharp and crampy in nature. Reports vomitus yesterday had flecks of blood in it. Has had 30+ weight loss in the past month. Has not been able to tolerate much solid food., though is able to drink liquids. Denies family history of autoimmune disorders or known IBD. No fever, chills. Denies polyuria or dysuria. No chest pain/pressure, palpitations. Denies shortness of breath. In the ED vital signs are largely stable, WNL. Labs were significant for leukocytosis of 19.4, H&H 13.3/39.1, potassium 3 2, ALT 49, alk-phos 151, ESR 67, and CRP 10.47. UA Likely negative for UTI. Stool positive for occult blood. Tested negative for flu, RSV, COVID. CT of abdomen and pelvis today found worsening colitis with similar mild diffuse wall thickening bladder questionable for cystitis. Also found bilateral gynecomastia with left greater than right. Pt was treated with ondansetron, Solu-Medrol, morphine, IVF, potassium chloride, and Dilaudid. Pt will be admitted to the hospital for treatment and further evaluation of intractable abdominal pain with hematochezia in the setting of worsening colitis. Review of Systems Review of Systems: Lower abdominal pain x1 month Diarrhea Significant hematochezia this morning Nausea, vomiting 30 lb weight loss in the past month The fever, chills Denies chest pain/pressure, palpitations No shortness of breath PMFSH Medical History Asthma Social History Household Members: Other Household Members Other:: mother Housing: Apartment Do you presently have visiting nurse or other home services: No Patient Tobacco Use Status: Never used Tobacco Smoked in Last 30 Days: No Use of substances other than those prescribed or required for medical reasons: Yes Substance Use Type: Marijuana Substance Use Frequency: Daily Last Used Substance: Hours (ago) Last Used Substance Other:: last night Currently Displaying Signs/Symptoms of Drug Intoxication Withdrawal: No Any prior treatment program specific to substance use: No Have you been hit, kicked, punched, or otherwise hurt by someone within the past year? If so, by whom?: No Do you feel safe in your current relationship?: Yes Is there a partner from a previous relationship who is making you feel unsafe now?: No Are you made to feel afraid or neglected: No Advance Directives: No Advance Directives Information Provided: No Do you have a plan to hurt others: No Plan Recently lost weight without trying: Yes Eating poorly because of decreased appetite: No Nutrition Risks: Acute nausea or vomiting x1 week Poor oral hygiene: No service: No Meds Allergies Allergy/AdvReac Type Severity Reaction Status Date / Time amoxicillin [AMOXICILLIN] Allergy Unknown RASH Verified 06/10/23 07:10 Active Medications: Current Medications Acetaminophen (Acetaminophen 325 Mg Tablet) 650 mg PO Q6H PRN PRN Reason: Pain, Mild (Pain Scale 1-3) Dicyclomine HCl (Dicyclomine Hcl 10 Mg Capsule) 10 mg PO QID PRN PRN Reason: abdominal pain Melatonin (Melatonin 3 Mg Tablet) 6 mg PO BEDTIME PRN PRN Reason: Insomnia Ondansetron HCl (Ondansetron Hcl 4 Mg/2 Ml Vial) 4 mg IVPUSH Q8H PRN PRN Reason: Nausea and Vomiting Sodium Chloride (0.9 % Sodium Chloride Flush 3 Ml Syringe) 3 ml IVFLUSH QSHIFT [facility] Home Medications ?Medication ?Instructions ?Recorded ?Confirmed ?Last Taken ?Type dicyclomine 10 mg capsule 10 mg PO QID PRN abdominal pain 06/10/23 06/10/23 Unknown History ibuprofen 600 mg tablet 600 mg PO Q8H PRN pain 06/10/23 06/10/23 Unknown History ondansetron 4 mg disintegrating 4 mg PO Q8H PRN nausea/vomiting 06/10/23 06/10/23 Unknown History tablet Physical Exam Vital Signs and Narrative: Vital Signs: Last Vital Signs Temp 98.3 F 06/10/23 12:48 Pulse 52 06/10/23 12:48 Resp 18 06/10/23 12:48 BP 103/66 06/10/23 12:48 Pulse Ox 97 06/10/23 12:48 O2 Del Method Room Air 06/10/23 12:48 BMI result Body Mass Index 30.7 Constitutional: Alert, in no acute distress. Mental Status: Oriented to person, place and time. Eyes: Pupils are equal, round, and reactive to light. Ear, Nose, and Throat: Oropharynx clear, mucous membranes moist. Ears and nose without deformities. Trachea midline. Respiratory: Clear to auscultation bilaterally. No wheezing, rales, or rhonchi. Cardiovascular: S1, S2 regular. No murmurs, rubs, or gallops. Gastrointestinal: Abdomen soft, non-distended, with suprapubic abdominal pain. Normal bowel sounds. Neurologic: Cranial nerves II-XII are grossly intact bilaterally. No focal neurological deficits. Moves all extremities spontaneously. Skin: Warm, dry. Musculoskeletal: No cyanosis or clubbing. Extremities: No edema. Psychiatric: Normal mood and affect. Results Labs 06/11/23 05:25 06/11/23 05:26 Labs: Laboratory Results - last 24 hr 06/10/23 06/10/23 06/10/23 07:18 07:43 07:52 MCV 83.4 MCH 28.1 MCHC 33.8 RDW 12.8 Plt Count 430 H MPV 8.0 L Immature Gran % (Auto) 3.4 H Neut % (Auto) 67.7 Lymph % (Auto) 15.0 L [place] % (Auto) 10.3 Eos % (Auto) 3.2 Baso % (Auto) 0.4 Lymph # (Auto) 2.9 [place] # (Auto) 2.0 H Eos # (Auto) 0.6 H Baso # (Auto) 0.1 Abs Immat Gran (auto) 0.67 H Absolute Neuts (auto) 13.1 H Absolute Nucleated RBC 0.000 Nucleated RBC % (auto) 0.0 Anion Gap 16 Estim Creat Clear Calc 170.7 Estimated GFR > 60 Random Glucose 119 H Calcium 9.4 Total Bilirubin 0.4 AST 20 ALT 49 H Alkaline Phosphatase 151 H C-Reactive Protein 10.47 H Total Protein 7.3 Albumin 3.5 Lipase 8 Urine Color Yellow Urine Appearance Cloudy Urine pH 6.5 Ur Specific [place] >= 1.030 H Urine Protein 100 (2+) H Urine Glucose (UA) See Note Urine Ketones Negative Urine Blood Negative Urine Nitrite See Note Ur Leukocyte Esterase Negative Urine RBC 0-2 Urine WBC 11-20 H Ur Squamous Epith Cells 11-20 Urine Bacteria None Seen Hyaline Casts >20 Granular Casts Present Stool Occult Blood POSITIVE Influenza Type A (PCR) NEGATIVE Influenza Type B (PCR) NEGATIVE RSV RNA Qual (PCR) NEGATIVE SARS-CoV-2 RNA (RT-PCR) NEGATIVE Imaging Radiologist's Impressions: Impressions Abdomen/Pelvis CT 06/10/23 09:23 IMPRESSION: Worsening colitis. Similar mild diffuse wall thickening of the bladder questionable for cystitis. Bilateral gynecomastia, left greater than right. Correlation with physical exam and mammogram recommended. Fleischner guidelines were followed. Assessment and Plan (1) Colitis: Status: Acute Plan Pt is a 23-year-old male with a PMH significant for?mild intermittent asthma who presents to the ED for evaluation of lower abdominal pain x1 month and hematochezia this morning. Pt will be admitted to the hospital for treatment and further evaluation of intractable abdominal pain with hematochezia in the setting of worsening colitis. Acute colitis Patient with abdominal pain, nausea, vomiting, and diarrhea x5 weeks Multiple presentations to the ED during this time CT of abdomen and pelvis showing worsening colitis Concerning for IBD: CRP and ESR elevated Patient has been multiple antibiotics in the past month to no effect (Bactrim, cefuroxime, and levofloxacin) Stool studies and C diff have been negative x2 on 05/12 and 06/02 Patient does not meet sepsis criteria: leukocytosis, but no fever, tachycardia, or tachypnea Will hold on additional antibiotics at this time Will treat with Solu-Medrol 20 mg Q8, antiemetics, analgesics for pain management Clear liquid diet GI consult Hematochezia Likely in the setting of colitis Follow CBC Hypokalemia Potassium 3.2 at time of presentation Likely secondary to nausea and vomiting with reduced p.o. intake Received potassium 40 mEq p.o. in the ED Follow BMP Question of gynecomastia CT showing bilateral gynecomastia, [id number] Follow-up outpatient for testosterone studies and possible mammogram Mild intermittent asthma Not in acute exacerbation Patient reports has not used rescue inhaler in over 1 year Albuterol p.r.n. Full Code Attending:?Dr. Novoa DVT Prophylaxis: Pneumatic boots due to hematochezia Pt will require a hospitalization of at least two nights for treatment of?worsening colitis with intractable nausea, vomiting, abdominal pain. Given that patient has had 4 presentations to the ED for similar symptoms in the past month, patient will require hospitalization for administration of IV steroids, IV anti emetics, analgesics, and close monitoring of electrolytes and H&H, as well as specialist consultation with GI. Quality Stroke Does the patient have a stroke diagnosis?: No VTE Prior VTE?: No VTE Risk Level:: Medical - moderate - high VTE Device Contraindication: N/A - Device Ordered VTE Drug Contraindication: Treatment Not Indicated
[2023-06-10] MEDS: methylPREDNISolone Sod Succ 40 MG/ML VIAL 20 MG IVPUSH ×2 (13:57→20:00)
--- NOTE | 2023-06-10 14:39 | PC.NURSE ---
Report given to Eryn in overflow, patient informed he will be moving to a different part of the ER.
--- NOTE | 2023-06-10 15:14 | PC.NURSE ---
Assumed care of patient at this time, patient reports 5/10 abdominal pain that is manageable, does not want a prn pain med at this time, no further needs, callbell within reach.
[2023-06-10] MEDS: 0.9 % Sodium Chloride Flush 3 ML SYRINGE IVFLUSH (15:23)
--- NOTE | 2023-06-10 19:45 | PC.NURSE ---
Patient reports no effect from Morphine stating Morphine made his abdominal pain worse,BP 127/73 pulse 46 48,Dr. Ireland notified
[2023-06-10] MEDS: Acetaminophen 1,000 MG/100 ML PIGGYBACK 400 MG IV (20:03)
[2023-06-11] MEDS: 0.9 % Sodium Chloride Flush 3 ML SYRINGE IVFLUSH ×3 (00:16→14:24)
[2023-06-11] MEDS: methylPREDNISolone Sod Succ 40 MG/ML VIAL 20 MG IVPUSH ×3 (05:39→23:14)
[2023-06-11 05:43] LABS: Hemoglobin 12.5 g/dl (14.0-18.0); Mean Corpuscular HGB Conc 32.9 g/dl (31.0-36.0); Mean Corpuscular Hemoglobin 27.7 pg (27.0-33.0); Mean Corpuscular Volume 84.1 fL (80.0-98.0); Platelet Count 386 X10*3/uL (160-400); Red Blood Count 4.52 X10*6/uL (4.60-5.80); Red Cell Distribution Width 12.9 % (11.0-16.0); White Blood Count 23.5 X10*3/uL (4.8-10.8)
[2023-06-11 05:58] LABS: Anion Gap 17 (12-20); Blood Urea Nitrogen 9 mg/dL (9-16); Calcium 9.4 mg/dL (8.4-10.2); Carbon Dioxide 25 mmol/L (22-29); Chloride 104 mmol/L (96-108); Creatinine Clr Calc Pharmacy 187.6; Estimated Glomerular Filt Rate > 60; Glucose Random 131 mg/dL (60-115); Magnesium 2.1 mg/dL (1.6-2.6); Potassium 4.6 mmol/L (3.3-5.1); Sodium 141 mmol/L (135-145)
[2023-06-11] MEDS: Acetaminophen 1,000 MG/100 ML PIGGYBACK 400 MG IV ×4 (06:07→23:14)
[2023-06-11 07:41] VITALS: BP 102/57; PULSE 50; RESP 18; TEMP 36.4; O2SAT 98
[2023-06-11 08:08] LABS: Estimated Average Glucose 114 mg/dL; Hemoglobin A1c % 5.6 % (<6.0)
--- NOTE | 2023-06-11 08:59 | P.CNGI_ITS ---
History of Present Illness Data of Consult Service Date: 06/11/23 Requesting physician: Colt Novoa Primary Care Provider: None Physician HPI Reason for consult: Chronic diarrhea, colitis This is a 23-year-old gentleman with recent admission for abdominal pain and colitis, who presents to the hospital again for diffuse lower abdominal pain with bloody stools. Patient reports that has had episodic abdominal pain for at least a month now. Was seen in the hospital last month as well for the same and treated as infectious colitis. This time, has been having lower abdominal pain for least a week, and then they before admission started having profuse diarrhea with blood in it. Blood appear to be much brighter and more in amount compared to previous episodes and therefore prompted his visit to the emergency room. No fevers, chills. Reports weight loss of around 10 lb in the last 1 month. On presentation, he was noted to be widely stable. Labs were significant for leukocytosis of 19.4, which has further worsened today. Thrombocytosis. Chem 7 with normal renal function. CRP 10.47. Urinalysis shows significant dehydration. Stool panel negative from last admission. Review of Systems 2 Review of Systems: Yes all other systems are reviewed and are negative [facility] Past Medical History Medical History Asthma Social History Social History Household Members: Other Household Members Other:: mother Housing: Apartment Do you presently have visiting nurse or other home services: No Patient Tobacco Use Status: Never used Tobacco Smoked in Last 30 Days: No Use of substances other than those prescribed or required for medical reasons: Yes Substance Use Type: Marijuana Substance Use Frequency: Daily Last Used Substance: Hours (ago) Last Used Substance Other:: last night Currently Displaying Signs/Symptoms of Drug Intoxication Withdrawal: No Any prior treatment program specific to substance use: No Have you been hit, kicked, punched, or otherwise hurt by someone within the past year? If so, by whom?: No Do you feel safe in your current relationship?: Yes Is there a partner from a previous relationship who is making you feel unsafe now?: No Are you made to feel afraid or neglected: No Advance Directives: No Advance Directives Information Provided: No Do you have a plan to hurt others: No Plan Recently lost weight without trying: Yes Eating poorly because of decreased appetite: No Nutrition Risks: Acute nausea or vomiting x1 week Poor oral hygiene: No service: No Meds Allergies Allergy/AdvReac Type Severity Reaction Status Date / Time amoxicillin [AMOXICILLIN] Allergy Unknown RASH Verified 06/10/23 07:10 Active Medications: Current Medications Dicyclomine HCl (Dicyclomine Hcl 10 Mg Capsule) 10 mg PO QID PRN PRN Reason: abdominal pain Hydromorphone HCl (Hydromorphone Hcl 0.5 Mg/0.5 Ml Syringe) 0.5 mg IVPUSH Q4H PRN; Protocol PRN Reason: Pain, Severe (Pain Scale 7-10) Acetaminophen (Ofirmev) 1,000 mg in 100 mls @ 400 mls/hr IV Q6H [facility] Stop: 06/14/23 09:00 Last Infusion: 06/11/23 06:22 Dose: Infused Melatonin (Melatonin 3 Mg Tablet) 6 mg PO BEDTIME PRN PRN Reason: Insomnia Methylprednisolone Sodium Succinate (Methylprednisolone Sod Succ 40 Mg/Ml Vial) 20 mg IVPUSH Q8H [facility] Last Admin: 06/11/23 05:39 Dose: 20 mg Ondansetron HCl (Ondansetron Hcl 4 Mg/2 Ml Vial) 4 mg IVPUSH Q8H PRN PRN Reason: Nausea and Vomiting Pantoprazole Sodium (Pantoprazole Sodium 40 Mg/10 Ml Vial) 40 mg IVPUSH DAILY@0630 [facility] Sodium Chloride (0.9 % Sodium Chloride Flush 3 Ml Syringe) 3 ml IVFLUSH QSHIFT [facility] Last Admin: 06/11/23 00:16 Dose: 3 ml Home Medications ?Medication ?Instructions ?Recorded ?Confirmed ?Last Taken ?Type dicyclomine 10 mg capsule 10 mg PO QID PRN abdominal pain 06/10/23 06/10/23 Unknown History ibuprofen 600 mg tablet 600 mg PO Q8H PRN pain 06/10/23 06/10/23 Unknown History ondansetron 4 mg disintegrating 4 mg PO Q8H PRN nausea/vomiting 06/10/23 06/10/23 Unknown History tablet Physical Exam 2 Vital Signs: Vital Signs: Last Vital Signs Temp 97.6 F 06/11/23 07:41 Pulse 50 06/11/23 07:41 Resp 18 06/11/23 07:41 BP 102/57 L 06/11/23 07:41 Pulse Ox 98 06/11/23 07:41 O2 Del Method Room Air 06/11/23 07:41 BMI result Body Mass Index 30.7 No acute distress, with obesity Abdomen soft, mildly tender in right lower quadrant and left lower quadrant, no guarding No overt respiratory distress No lower extremity edema Alert and oriented x3, no focal deficits Results Labs 06/11/23 05:25 06/11/23 05:26 Labs: Short CBC 06/11/23 Range/Units 05:25 WBC 23.5 H (4.8-10.8) X10*3/uL Hgb 12.5 L (14.0-18.0) g/dl Hct 38.0 L (42.0-52.0) % Plt Count 386 (160-400) X10*3/uL BMP 06/11/23 05:26 Sodium 141 Potassium 4.6 D Chloride 104 Carbon Dioxide 25 BUN 9 Creatinine 0.71 Calcium 9.4 Microbiology Microbiology Results: Microbiology 06/10/23 Unknown Urine clean catch - Urine vicente top Urine Culture - Final No growth. Imaging CT scan - abdomen: Radiologist's impression: there is worsening colitis compared to 06/03/2023 exam wall thickening and stranding of the pericolic fat. This is greatest in the proximal colon involving the cecum and right colon and transverse colon. There is new mild wall thickening of the left colon. The sigmoid colon and rectum are normal. The base of the appendix is slightly dilated measuring 9 mm increased from prior exam. There is a small amount of air seen in the appendix. The periappendiceal fat is normal. This is probably secondary to adjacent colitis in the cecum. The small bowel is normal. The stomach is normal. No ascites. No evidence of free air. No evidence of obstruction. Assessment and Plan (1) Colitis: Status: Acute (2) Leukocytosis: Qualifiers: Leukocytosis type: unspecified Qualified Code(s): D72.829 - Elevated white blood cell count, unspecified Status: Acute (3) Abdominal pain: Qualifiers: Abdominal location: lower abdomen, unspecified Qualified Code(s): R 10.30 - Lower abdominal pain, unspecified Status: Acute (4) Hematochezia: Status: Acute Plan Differentials include infectious colitis, inflammatory colitis. Ischemic colitis less likely given absence of risk factors. Plan: -check fecal calprotectin -check C diff, given recent exposure to multiple antibiotics including fluoroquinolones -clear liquid diet today, NPO after midnight for colonoscopy tomorrow -Rosalba milner ordered -further recommendations to follow in the procedure note tomorrow Procedures Date of Service Date of Service: 06/11/23
[2023-06-11] MEDS: Pantoprazole Sodium 40 MG/10 ML VIAL IVPUSH (09:21)
[2023-06-11] MEDS: HYDROmorphone HCl 0.5 MG/0.5 ML SYRINGE IVPUSH (09:24)
--- NOTE | 2023-06-11 09:48 | MHC.CM.PN ---
pt lives with mother ,pt is independent has a ride home pcp list given to pt dc plan home no servies
--- NOTE | 2023-06-11 12:29 | P.PNIM_ITS ---
Subjective Subjective Date of Service: 06/11/23 Interval History: Acute colitis Review of Systems abd pain similar has 2 bm blood/ diarrahe Physical Exam 2 Vital Signs: Vital Signs: Last Vital Signs Temp 97.6 F 06/11/23 07:41 Pulse 50 06/11/23 07:41 Resp 18 06/11/23 07:41 BP 102/57 L 06/11/23 07:41 Pulse Ox 98 06/11/23 07:41 O2 Del Method Room Air 06/11/23 07:41 BMI result Body Mass Index 30.7 Appearance: Alert.? Oriented X3.?. cvs: rrr, [id number] . res: clear to auscultation ,no rhonchii or wheezing abd: no rebound or guarding ,nt, bs present. ext pulses present , no cyanosis . neuro: axo3 , nonfocal. Objective Data Active Medications Dicyclomine HCl (Dicyclomine Hcl 10 Mg Capsule) 10 mg PO QID PRN PRN Reason: abdominal pain Hydromorphone HCl (Hydromorphone Hcl 0.5 Mg/0.5 Ml Syringe) 1 mg IVPUSH Q4H PRN; Protocol PRN Reason: Pain, Severe (Pain Scale 7-10) Acetaminophen (Ofirmev) 1,000 mg in 100 mls @ 400 mls/hr IV Q6H [facility] Stop: 06/14/23 09:00 Last Infusion: 06/11/23 06:22 Dose: Infused Documented By: EMELIA Melatonin (Melatonin 3 Mg Tablet) 6 mg PO BEDTIME PRN PRN Reason: Insomnia Methylprednisolone Sodium Succinate (Methylprednisolone Sod Succ 40 Mg/Ml Vial) 20 mg IVPUSH Q8H [facility] Last Admin: 06/11/23 05:39 Dose: 20 mg Documented By: EMELIA Ondansetron HCl (Ondansetron Hcl 4 Mg/2 Ml Vial) 4 mg IVPUSH Q8H PRN PRN Reason: Nausea and Vomiting Pantoprazole Sodium (Pantoprazole Sodium 40 Mg/10 Ml Vial) 40 mg IVPUSH DAILY@0630 [facility] Last Admin: 06/11/23 09:21 Dose: 40 mg Documented By: VASILIY Polyethylene Glycol/Electrolytes (Peg 3350/Na Sulf,Bicarb,Cl/Kcl 4,000 Ml Soln.Recon) 4,000 ml PO ONCE ONE Stop: 06/11/23 16:31 Sodium Chloride (0.9 % Sodium Chloride Flush 3 Ml Syringe) 3 ml IVFLUSH QSHIFT [facility] Last Admin: 06/11/23 09:22 Dose: 3 ml Documented By: VASILIY Labs 06/11/23 05:25 06/11/23 05:26 Labs: Laboratory Results - last 24 hr 06/11/23 06/11/23 05:25 05:26 MCV 84.1 MCH 27.7 MCHC 32.9 RDW 12.9 Plt Count 386 MPV 8.0 L Absolute Nucleated RBC 0.000 Nucleated RBC % (auto) 0.0 Anion Gap 17 Estim Creat Clear Calc 187.6 Estimated GFR > 60 Random Glucose 131 H Estimat Average Glucose 114 Hemoglobin A1c % 5.6 Calcium 9.4 Magnesium 2.1 Microbiology Microbiology Results: Microbiology 06/10/23 Unknown Urine Culture - Final Urine clean catch - Urine vicente top No growth. Assessment and Plan (1) Acute hypokalemia: Status: Acute (2) Colitis: Status: Acute (3) Leukocytosis: Status: Acute (4) Abdominal pain: Status: Acute Assessment and Plan: 23-year-old male with a PMH significant for?mild intermittent asthma who presents to the ED for evaluation of lower abdominal pain x1 month and hematochezia this morning. Pt will be admitted to the hospital for treatment and further evaluation of intractable abdominal pain with hematochezia in the setting of worsening colitis. Acute colitis has abdominal pain, nausea, vomiting, and diarrhea few weeks multiple ed visits/multiple antibiotics in the past month to no effect (Bactrim, cefuroxime, and levofloxacin) CRP and ESR elevated,CT of abdomen and pelvis showing worsening colitis fobt positive ,Stool studies and C diff have been negative x2 on 05/12 and 06/02 plan: leucocytosis mild trending up cdiff and stool studies added. Clear liquid diet hold on additional antibiotics at this time (received multiple antibiotics unless clinical deteriorate). continue Solu-Medrol 20 mg Q8, antiemetics, analgesics for pain management. GI consult noted -no fever ,abd pain similar : continue iv steriods ,moniter for bm's, possible colonoscopy in am ,npo past midnight. h/h so far stable around 12.5 Hematochezia Likely in the setting of colitis Follow CBC Hypokalemia repleted and resolved. Question of gynecomastia CT showing bilateral gynecomastia, [id number] further workup outpatient with pcp. Mild intermittent asthma Not in acute exacerbation Patient reports has not used rescue inhaler in over 1 year Albuterol p.r.n. Full Code DVT Prophylaxis: Pneumatic boots due to hematochezia ongoing hospitalization need for treatment of?worsening colitis with intractable nausea, vomiting, abdominal pain-multiple ED visit and antibiotics- require hospitalization for administration of IV steroids, IV anti emetics, analgesics, cbc and electrolytes monitering and possible colonoscopy in am. Quality Stroke Does the patient have a stroke diagnosis?: No VTE Prior VTE?: No VTE Risk Level:: Medical - moderate - high VTE Device Contraindication: N/A - Device Ordered VTE Drug Contraindication: Treatment Not Indicated
[2023-06-11] MEDS: HYDROmorphone HCl 0.5 MG/0.5 ML SYRINGE 1 MG IVPUSH ×2 (14:21→19:22)
[2023-06-11 15:18] VITALS: BP 126/73; PULSE 49; RESP 18; TEMP 36.1; O2SAT 97
[2023-06-11 15:34] LABS: CDiff Gene PCR NEGATIVE (Negative)
[2023-06-11 16:10] LABS: Adenovirus F 40/41 Not Detected (Not Detect.); Astrovirus Not Detected (Not Detect.); Campylobacter Not Detected (Not Detect.); Cryptosporidium Not Detected (Not Detect.); Cyclospora cayetanensis Not Detected (Not Detect.); E. coli EAEC Not Detected (Not Detect.); E. coli EPEC Not Detected (Not Detect.); E. coli ETEC Not Detected (Not Detect.); E. coli STEC Not Detected (Not Detect.); Entamoeba histolytica Not Detected (Not Detect.); Giardia lamblia Not Detected (Not Detect.); Norovirus GI/GII Not Detected (Not Detect.); Plesiomonas shigelloides Not Detected (Not Detect.); Rotavirus A Not Detected (Not Detect.); Salmonella Not Detected (Not Detect.); Sapovirus Not Detected (Not Detect.); Shigella sp./EIEC Not Detected (Not Detect.); Vibrio Not Detected (Not Detect.); Vibrio Cholerae Not Detected (Not Detect.); Yersinia enterocolitica Not Detected (Not Detect.)
[2023-06-11] MEDS: Dicyclomine HCl 10 MG CAPSULE PO (17:19)
[2023-06-11] MEDS: PEG 3350/Na Sulf,Bicarb,Cl/KCL 4,000 ML SOLN.RECON 4000 ML PO (17:21)
[2023-06-11 23:50] VITALS: BP 137/85; PULSE 45; RESP 18; TEMP 36.4; O2SAT 96
[2023-06-12] VITALS (9 sets, daily range): BP systolic 115–150; BP diastolic 64–94; PULSE 45–68; RESP 12–20; TEMP 36.1–36.6; O2SAT 95–98
[2023-06-12] MEDS: Dicyclomine HCl 10 MG CAPSULE PO (00:06)
[2023-06-12] MEDS: HYDROmorphone HCl 0.5 MG/0.5 ML SYRINGE 1 MG IVPUSH ×3 (00:06→21:11)
[2023-06-12] MEDS: 0.9 % Sodium Chloride Flush 3 ML SYRINGE IVFLUSH ×3 (00:10→16:21)
[2023-06-12] MEDS: Pantoprazole Sodium 40 MG/10 ML VIAL IVPUSH (05:46)
[2023-06-12] MEDS: methylPREDNISolone Sod Succ 40 MG/ML VIAL 20 MG IVPUSH (05:47)
[2023-06-12] MEDS: Acetaminophen 1,000 MG/100 ML PIGGYBACK 400 MG IV ×3 (05:47→17:04)
[2023-06-12 07:25] LABS: Hemoglobin 12.8 g/dl (14.0-18.0); Mean Corpuscular HGB Conc 32.8 g/dl (31.0-36.0); Mean Corpuscular Hemoglobin 27.7 pg (27.0-33.0); Mean Corpuscular Volume 84.4 fL (80.0-98.0); Mean Platelet Volume 8.6 fL (9.4-12.4); Platelet Count 476 X10*3/uL (160-400); Red Blood Count 4.62 X10*6/uL (4.60-5.80); White Blood Count 20.4 X10*3/uL (4.8-10.8)
[2023-06-12 07:26] LABS: Anion Gap 19 (12-20); Blood Urea Nitrogen 13 mg/dL (9-16); Calcium 9.9 mg/dL (8.4-10.2); Carbon Dioxide 28 mmol/L (22-29); Chloride 100 mmol/L (96-108); Creatinine Clr Calc Pharmacy 190.2; Estimated Glomerular Filt Rate > 60; Glucose Random 111 mg/dL (60-115); Potassium 4.5 mmol/L (3.3-5.1); Sodium 142 mmol/L (135-145)
--- NOTE | 2023-06-12 13:17 | P.CONAN_ITS ---
HPI - Anesthesia Eval Consult details Narrative: 23 yo male patient with ?Colitis. For Colonoscopy PMFSH Active Problems Active Problems: All Active Problems Hematochezia (Acute) Acute hypokalemia (Acute) Colitis (Acute) Acute lymphadenitis (Acute) Leukocytosis (Acute) Abdominal pain (Acute) Snores but never had sleep study Increased BMI Past Medical History Medical History Asthma Family History Family history of problems with anesthesia: No Surgical History History of Problems with Anesthesia: No Social History Social History Household Members: Other Household Members Other:: mother Housing: Apartment Do you presently have visiting nurse or other home services: No Patient Tobacco Use Status: Never used Tobacco Smoked in Last 30 Days: No Use of substances other than those prescribed or required for medical reasons: Yes Substance Use Type: Marijuana Substance Use Frequency: Daily Last Used Substance: Hours (ago) Last Used Substance Other:: last night Currently Displaying Signs/Symptoms of Drug Intoxication Withdrawal: No Any prior treatment program specific to substance use: No Have you been hit, kicked, punched, or otherwise hurt by someone within the past year? If so, by whom?: No Do you feel safe in your current relationship?: Yes Is there a partner from a previous relationship who is making you feel unsafe now?: No Are you made to feel afraid or neglected: No Advance Directives: No Advance Directives Information Provided: No Do you have a plan to hurt others: No Plan Recently lost weight without trying: Yes Eating poorly because of decreased appetite: No Nutrition Risks: Acute nausea or vomiting x1 week Poor oral hygiene: No service: No Meds Allergies Allergy/AdvReac Type Severity Reaction Status Date / Time amoxicillin [AMOXICILLIN] Allergy Unknown RASH Verified 06/10/23 07:10 Active Medications: Current Medications Dicyclomine HCl (Dicyclomine Hcl 10 Mg Capsule) 10 mg PO QID PRN PRN Reason: abdominal pain Last Admin: 06/12/23 00:06 Dose: 10 mg Hydromorphone HCl (Hydromorphone Hcl 0.5 Mg/0.5 Ml Syringe) 1 mg IVPUSH Q4H PRN; Protocol PRN Reason: Pain, Severe (Pain Scale 7-10) Last Admin: 06/12/23 00:06 Dose: 1 mg Acetaminophen (Ofirmev) 1,000 mg in 100 mls @ 400 mls/hr IV Q6H [facility] Stop: 06/14/23 09:00 Last Infusion: 06/12/23 12:08 Dose: Infused Melatonin (Melatonin 3 Mg Tablet) 6 mg PO BEDTIME PRN PRN Reason: Insomnia Methylprednisolone Sodium Succinate (Methylprednisolone Sod Succ 40 Mg/Ml Vial) 20 mg IVPUSH Q8H [facility] Last Admin: 06/12/23 05:47 Dose: 20 mg Ondansetron HCl (Ondansetron Hcl 4 Mg/2 Ml Vial) 4 mg IVPUSH Q8H PRN PRN Reason: Nausea and Vomiting Pantoprazole Sodium (Pantoprazole Sodium 40 Mg/10 Ml Vial) 40 mg IVPUSH DAILY@06 [facility] Last Admin: 06/12/23 05:46 Dose: 40 mg Sodium Chloride (0.9 % Sodium Chloride Flush 3 Ml Syringe) 3 ml IVFLUSH QSHIFT [facility] Last Admin: 06/12/23 08:36 Dose: 3 ml Home Medications ?Medication ?Instructions ?Recorded ?Confirmed ?Last Taken ?Type dicyclomine 10 mg capsule 10 mg PO QID PRN abdominal pain 06/10/23 06/10/23 Unknown History ibuprofen 600 mg tablet 600 mg PO Q8H PRN pain 06/10/23 06/10/23 Unknown History ondansetron 4 mg disintegrating 4 mg PO Q8H PRN nausea/vomiting 06/10/23 06/10/23 Unknown History tablet Exam Height,Weight and Vital Signs: Height 5 ft 10 in Weight 97.2 kg Last Vital Signs Temp 97.1 F 06/12/23 10:37 Pulse 49 L 06/12/23 10:37 Resp 18 06/12/23 10:37 BP 137/77 06/12/23 10:37 Pulse Ox 97 06/12/23 10:37 O2 Del Method Room Air 06/12/23 10:37 Vital Signs Temp Pulse Resp BP Pulse Ox O2 Del Method 06/12/23 13:08 96.9 F 45 L 18 125/80 97 Room Air 06/12/23 10:37 97.1 F 49 L 18 137/77 97 Room Air 06/12/23 07:30 97.7 F 50 12 118/68 95 Room Air 06/11/23 23:50 97.5 F 45 L 18 137/85 96 Room Air 06/11/23 15:18 96.9 F 49 L 18 126/73 97 Room Air Pertinent Lab Results Pertinent Lab Results: Laboratory Tests 06/10/23 06/10/23 06/10/23 07:18 07:43 07:52 WBC 19.4 H RBC 4.69 Hgb 13.2 L Hct 39.1 L MCV 83.4 MCH 28.1 MCHC 33.8 RDW 12.8 Plt Count 430 H MPV 8.0 L Immature Gran % (Auto) 3.4 H Neut % (Auto) 67.7 Lymph % (Auto) 15.0 L [place] % (Auto) 10.3 Eos % (Auto) 3.2 Baso % (Auto) 0.4 Lymph # (Auto) 2.9 [place] # (Auto) 2.0 H Eos # (Auto) 0.6 H Baso # (Auto) 0.1 Abs Immat Gran (auto) 0.67 H Absolute Neuts (auto) 13.1 H Absolute Nucleated RBC 0.000 Nucleated RBC % (auto) 0.0 Sodium 139 Potassium 3.2 L Chloride 102 Carbon Dioxide 24 Anion Gap 16 BUN 9 Creatinine 0.78 Estim Creat Clear Calc 170.7 Estimated GFR > 60 Random Glucose 119 H Estimat Average Glucose Hemoglobin A1c % Calcium 9.4 Magnesium Total Bilirubin 0.4 AST 20 ALT 49 H Alkaline Phosphatase 151 H C-Reactive Protein 10.47 H Total Protein 7.3 Albumin 3.5 Lipase 8 Urine Color Yellow Urine Appearance Cloudy Urine pH 6.5 Ur Specific Griffith >= 1.030 H Urine Protein 100 (2+) H Urine Glucose (UA) See Note Urine Ketones Negative Urine Blood Negative Urine Nitrite See Note Ur Leukocyte Esterase Negative Urine RBC 0-2 Urine WBC 11-20 H Ur Squamous Epith Cells 11-20 Urine Bacteria None Seen Hyaline Casts >20 Granular Casts Present Stool Occult Blood POSITIVE Stl C. cayetanensis PCR Stool Rotavirus A PCR Stl Adenov F 40/41 PCR Stool Astrovirus (PCR) Stool Campylobacter PCR Stool Cryptosporidium PCR Stl Sh Tox Pr E STEC PCR Stool E coli O157 PCR Stl Enterotoxigenic E PCR Stool EPEC (PCR) Stool EAEC (PCR) Stl E. histolytica PCR Stool Giardia Lamblia PCR Stl P. shigelloides PCR Stool Salmonella PCR Stool Sapovirus (PCR) Stl Shigella/EIEC PCR St Y.enterocolitica PCR Stool Vibrio (PCR) Stl Vibrio cholerae PCR Stl Norovirus GI/GII PCR C. difficile Tox B Gene Influenza Type A (PCR) NEGATIVE Influenza Type B (PCR) NEGATIVE RSV RNA Qual (PCR) NEGATIVE SARS-CoV-2 RNA (RT-PCR) NEGATIVE 06/11/23 06/11/23 06/11/23 05:25 05:26 14:05 WBC 23.5 H RBC 4.52 L Hgb 12.5 L Hct 38.0 L MCV 84.1 MCH 27.7 MCHC 32.9 RDW 12.9 Plt Count 386 MPV 8.0 L Immature Gran % (Auto) Neut % (Auto) Lymph % (Auto) [place] % (Auto) Eos % (Auto) Baso % (Auto) Lymph # (Auto) [place] # (Auto) Eos # (Auto) Baso # (Auto) Abs Immat Gran (auto) Absolute Neuts (auto) Absolute Nucleated RBC 0.000 Nucleated RBC % (auto) 0.0 Sodium 141 Potassium 4.6 D Chloride 104 Carbon Dioxide 25 Anion Gap 17 BUN 9 Creatinine 0.71 Estim Creat Clear Calc 187.6 Estimated GFR > 60 Random Glucose 131 H Estimat Average Glucose 114 Hemoglobin A1c % 5.6 Calcium 9.4 Magnesium 2.1 Total Bilirubin AST ALT Alkaline Phosphatase C-Reactive Protein Total Protein Albumin Lipase Urine Color Urine Appearance Urine pH Ur Specific Griffith Urine Protein Urine Glucose (UA) Urine Ketones Urine Blood Urine Nitrite Ur Leukocyte Esterase Urine RBC Urine WBC Ur Squamous Epith Cells Urine Bacteria Hyaline Casts Granular Casts Stool Occult Blood Stl C. cayetanensis PCR Not Detected Stool Rotavirus A PCR Not Detected Stl Adenov F 40/41 PCR Not Detected Stool Astrovirus (PCR) Not Detected Stool Campylobacter PCR Not Detected Stool Cryptosporidium PCR Not Detected Stl Sh Tox Pr E STEC PCR Not Detected Stool E coli O157 PCR Not applicable Stl Enterotoxigenic E PCR Not Detected Stool EPEC (PCR) Not Detected Stool EAEC (PCR) Not Detected Stl E. histolytica PCR Not Detected Stool Giardia Lamblia PCR Not Detected Stl P. shigelloides PCR Not Detected Stool Salmonella PCR Not Detected Stool Sapovirus (PCR) Not Detected Stl Shigella/EIEC PCR Not Detected St Y.enterocolitica PCR Not Detected Stool Vibrio (PCR) Not Detected Stl Vibrio cholerae PCR Not Detected Stl Norovirus GI/GII PCR Not Detected C. difficile Tox B Gene NEGATIVE Influenza Type A (PCR) Influenza Type B (PCR) RSV RNA Qual (PCR) SARS-CoV-2 RNA (RT-PCR) 06/12/23 05:47 WBC 20.4 H RBC 4.62 Hgb 12.8 L Hct 39.0 L MCV 84.4 MCH 27.7 MCHC 32.8 RDW 13.0 Plt Count 476 H MPV 8.6 L Immature Gran % (Auto) Neut % (Auto) Lymph % (Auto) [place] % (Auto) Eos % (Auto) Baso % (Auto) Lymph # (Auto) [place] # (Auto) Eos # (Auto) Baso # (Auto) Abs Immat Gran (auto) Absolute Neuts (auto) Absolute Nucleated RBC 0.000 Nucleated RBC % (auto) 0.0 Sodium 142 Potassium 4.5 Chloride 100 Carbon Dioxide 28 Anion Gap 19 BUN 13 Creatinine 0.70 Estim Creat Clear Calc 190.2 Estimated GFR > 60 Random Glucose 111 Estimat Average Glucose Hemoglobin A1c % Calcium 9.9 Magnesium Total Bilirubin AST ALT Alkaline Phosphatase C-Reactive Protein Total Protein Albumin Lipase Urine Color Urine Appearance Urine pH Ur Specific Griffith Urine Protein Urine Glucose (UA) Urine Ketones Urine Blood Urine Nitrite Ur Leukocyte Esterase Urine RBC Urine WBC Ur Squamous Epith Cells Urine Bacteria Hyaline Casts Granular Casts Stool Occult Blood Stl C. cayetanensis PCR Stool Rotavirus A PCR Stl Adenov F 40/41 PCR Stool Astrovirus (PCR) Stool Campylobacter PCR Stool Cryptosporidium PCR Stl Sh Tox Pr E STEC PCR Stool E coli O157 PCR Stl Enterotoxigenic E PCR Stool EPEC (PCR) Stool EAEC (PCR) Stl E. histolytica PCR Stool Giardia Lamblia PCR Stl P. shigelloides PCR Stool Salmonella PCR Stool Sapovirus (PCR) Stl Shigella/EIEC PCR St Y.enterocolitica PCR Stool Vibrio (PCR) Stl Vibrio cholerae PCR Stl Norovirus GI/GII PCR C. difficile Tox B Gene Influenza Type A (PCR) Influenza Type B (PCR) RSV RNA Qual (PCR) SARS-CoV-2 RNA (RT-PCR) Airway Mallampati Class: II TM Dist: >3cm Neck ROM: Full Loose/Missing/Broken Teeth: Yes (Missing some teeth. Denies broken or loose teeth) Heart: RRR Lungs: CTAB Assessment and Plan Assessment Anesthesia Assessment: Anesthesia Plan Discussed and Chart Reviewed Final Anesthetic Review Family History of Problems with Anesthesia: No History of Problems with Anesthesia: No NPO: Yes ASA Class: II Final Preanesthetic Review: No Changes in Pt Med Stat, Meds/Allgs Chart Reviewed, Consent Obtained/Reviewed and Anes Risks/Benef Reviewed Patient Risk: Intermediate Procedure Risk: Low Assessment/Block/Sedation in SS: Assess/Block/Sedation-SS Anesthetic Plan Anesthetic Plan: MAC: and TIVA Disposition: Standard PACU
--- NOTE | 2023-06-12 13:27 | HO.PM.IMPN ---
Subjective Subjective Date of Service: 06/12/23 Interval History: f/u on abdominal pain, colitis he reports mild pain, NPO for conoscopy later today Physical Exam Vital Signs: Vital Signs: Last Vital Signs Temp 96.9 F 06/12/23 13:08 Pulse 45 L 06/12/23 13:08 Resp 18 06/12/23 13:08 BP 125/80 06/12/23 13:08 Pulse Ox 97 06/12/23 13:08 O2 Del Method Room Air 06/12/23 13:08 BMI result Body Mass Index 30.7 General: AO X 3, no acute distress Resp: CTA bilateral CVS: S1,S2,RRR GI: +BS, NT, no distention Skin: No rash, no bruses Neuro: motor grossly intact, moves all extremities, no confusion, no focal weakness Psych: appropriate affect Objective Data Active Medications Dicyclomine HCl (Dicyclomine Hcl 10 Mg Capsule) 10 mg PO QID PRN PRN Reason: abdominal pain Last Admin: 06/12/23 00:06 Dose: 10 mg Documented By: RYLEY Hydromorphone HCl (Hydromorphone Hcl 0.5 Mg/0.5 Ml Syringe) 1 mg IVPUSH Q4H PRN; Protocol PRN Reason: Pain, Severe (Pain Scale 7-10) Last Admin: 06/12/23 00:06 Dose: 1 mg Documented By: RYLEY Acetaminophen (Ofirmev) 1,000 mg in 100 mls @ 400 mls/hr IV Q6H [facility] Stop: 06/14/23 09:00 Last Infusion: 06/12/23 12:08 Dose: Infused Documented By: VASILIY Melatonin (Melatonin 3 Mg Tablet) 6 mg PO BEDTIME PRN PRN Reason: Insomnia Methylprednisolone Sodium Succinate (Methylprednisolone Sod Succ 40 Mg/Ml Vial) 20 mg IVPUSH Q8H [facility] Last Admin: 06/12/23 05:47 Dose: 20 mg Documented By: RYLEY Ondansetron HCl (Ondansetron Hcl 4 Mg/2 Ml Vial) 4 mg IVPUSH Q8H PRN PRN Reason: Nausea and Vomiting Pantoprazole Sodium (Pantoprazole Sodium 40 Mg/10 Ml Vial) 40 mg IVPUSH DAILY@0630 [facility] Last Admin: 06/12/23 05:46 Dose: 40 mg Documented By: RYLEY Sodium Chloride (0.9 % Sodium Chloride Flush 3 Ml Syringe) 3 ml IVFLUSH QSHIFT [facility] Last Admin: 06/12/23 08:36 Dose: 3 ml Documented By: VASILIY Labs 06/12/23 05:47 06/12/23 05:47 Labs: Laboratory Results - last 24 hr 06/11/23 06/12/23 14:05 05:47 MCV 84.4 MCH 27.7 MCHC 32.8 RDW 13.0 Plt Count 476 H MPV 8.6 L Absolute Nucleated RBC 0.000 Nucleated RBC % (auto) 0.0 Anion Gap 19 Estim Creat Clear Calc 190.2 Estimated GFR > 60 Random Glucose 111 Calcium 9.9 Stl C. cayetanensis PCR Not Detected Stool Rotavirus A PCR Not Detected Stl Adenov F 40/41 PCR Not Detected Stool Astrovirus (PCR) Not Detected Stool Campylobacter PCR Not Detected Stool Cryptosporidium PCR Not Detected Stl Sh Tox Pr E STEC PCR Not Detected Stool E coli O157 PCR Not applicable Stl Enterotoxigenic E PCR Not Detected Stool EPEC (PCR) Not Detected Stool EAEC (PCR) Not Detected Stl E. histolytica PCR Not Detected Stool Giardia Lamblia PCR Not Detected Stl P. shigelloides PCR Not Detected Stool Salmonella PCR Not Detected Stool Sapovirus (PCR) Not Detected Stl Shigella/EIEC PCR Not Detected St Y.enterocolitica PCR Not Detected Stool Vibrio (PCR) Not Detected Stl Vibrio cholerae PCR Not Detected Stl Norovirus GI/GII PCR Not Detected C. difficile Tox B Gene NEGATIVE Assessment and Plan (1) Acute hypokalemia: Status: Acute (2) Colitis: Status: Acute (3) Leukocytosis: Status: Acute (4) Abdominal pain: Status: Acute Assessment and Plan: 23-year-old male with a PMH significant for?mild intermittent asthma who presents to the ED for evaluation of lower abdominal pain x1 month and hematochezia this morning. Pt will be admitted to the hospital for treatment and further evaluation of intractable abdominal pain with hematochezia in the setting of worsening colitis. Acute colitis has abdominal pain, nausea, vomiting, and diarrhea few weeks multiple ed visits/multiple antibiotics in the past month to no effect (Bactrim, cefuroxime, and levofloxacin) CRP and ESR elevated,CT of abdomen and pelvis showing worsening colitis fobt positive ,Stool studies and C diff have been negative x2 on 05/12 and 06/02 for colonoscopy today, hold Abx, continue steroid for now Hematochezia--h/h, stable. Leukocytosis d/t steroid Hypokalemia repleted and resolved. Question of gynecomastia CT showing bilateral gynecomastia, [id number] further workup outpatient with pcp. Mild intermittent asthma Not in acute exacerbation Patient reports has not used rescue inhaler in over 1 year Albuterol p.r.n. Fall, he reports fall in the bathroom after sliping and falling on back did hit head: exam no hematoma, no change in mental status, joints are all intact, no brusing.. Will observe clinically Full Code DVT Prophylaxis: Pneumatic boots due to hematochezia need for inpt: iv steroid for colitis and awaiting further workup Quality Stroke Does the patient have a stroke diagnosis?: No VTE Prior VTE?: No VTE Risk Level:: Medical - moderate - high VTE Device Contraindication: N/A - Device Ordered VTE Drug Contraindication: Treatment Not Indicated
--- NOTE | 2023-06-12 14:40 | MHC.SHP ---
Pre-Procedural Eval Section A - 24 Hr Update-Section A only Date of Service: 06/12/23 The patient is an INPATIENT: Yes The patient has been examined within 24 hours of the surgical procedure. The History & Physical has been completed within 30 days and I have reviewed it.: Yes Section B - Complete if H&P > 30 days Chief Complaint: Abd Pain, recurrent colitis Allergies: Allergies Allergy/AdvReac Type Severity Reaction Status Date / Time amoxicillin [AMOXICILLIN] Allergy Unknown RASH Verified 06/10/23 07:10 Plan Diagnosis/Plan: Unchanged I have reviewed the history and physical and performed a pertinent physical examination on my patient. No changes have occurred unless specified. Time Spent With Patient Time: Total time managing care of this patient today ____ minutes.
--- NOTE | 2023-06-12 14:47 | P.OPN-COLO_ITS ---
Colonoscopy Operative Note Operative Note Date of Service: 06/12/23 Narrative: Procedure: Colonoscopy Indication: Colitis Endoscopist: Laura Helm MD Anesthesia Provider: Isis Alcaraz CRNA Anesthesia type: MAC Instrument: Olympus [id number]-[id number] Consent: Indication, risks vs benefits, and alternatives were discussed with the patient who gave written informed consent to proceed. EKG, pulse, pulse oximetry and blood pressure were monitored throughout the procedure. Please see anesthesia flowsheet. Procedure: The patient was brought to the procedure room and placed in the left lateral decubitus position. IV medications were administered by the anesthesia provider in attendance. A digital rectal exam was performed which was normal. A distal attachment cap was affixed to the tip of the colonoscope which was then inserted through the anus and advanced through the colon to the cecum at 80 cm. Appendiceal orifice and ileocecal valve were identified. Mucosa was carefully examined under high definition white light as the instrument was slowly withdrawn in a retrograde panoramic fashion. Retroflexion was performed in rectum. The procedure was not difficult. There were no immediate obvious complications. The quality of the prep was BBPS: 2+2+2 = adequate Withdrawal time 11 minutes. Limitations: No limitations. Findings: Mucosa: Large punched out ulcers were noted starting from 40 cm to cecum. This was most pronounced in R colon. Adjacent mucosa was normal appearing but berry atous. Cold forceps biopsies were taken for histology. Protruding lesions: * Medium internal hemorrhoids without stigmata of recent bleeding. Impression: 1. Ulcerated colon (biopsy) 2. Internal hemorrhoids Recommendations: - Ddx includes infectious colitis (r/o CMV), ischemia (? IMHMV) and inflammatory colitis. - Await path results - Surgery consultation - Labs ordered: IBD panel, lactate, LDH, CRP and HIV Ab - Please obtain CTA - stop methylpred, start ABx
[2023-06-12 15:58] LABS: Immunoglobulin A 295 mg/dL (47-310)
[2023-06-12 18:13] LABS: Lactic Acid 0.8 mmol/L (0.5-2.0)
[2023-06-12 18:15] LABS: C Reactive Protein 3.44 mg/dL (< or = 0.50); Lactate Dehydrogenase 135 U/L (118-273)
--- NOTE | 2023-06-12 18:42 | PC.NURSE ---
report recieved from overnight RN, medical field representative per APR. pt low fall risk, steady on feet, prepped for shower. Pt mother came out while pt was in bathroom/shower stating the pt reported falling. GUN STRIPER in to help pt, bathroom door found locked. this RN notified and able to unlock door, pt found standing in shower, voicing frustration about wanting privacy. MD and supercharger mechanic notified and to bedside to assess with this RN. VSS. Assessment negative, neuros intact, no signs of wounds, pt reports hitting head and feeling dizzy/dehydrated from being NPO before procedure, denies pain. Incident report filed. Pt made high fall risk, bed alarm on, call trejo within reach, pt encouraged to call for assistance. pt down for colonoscopy. Back to room, No changes noted to assessment postoperatively. safety precautions remain in place, high fall risk with bed alarm, signage, red socks and bracelet in place.
[2023-06-12] MEDS: iohexoL 350 MG/ML 100 ML INFUS..BTL IV (19:52)
[2023-06-12] MEDS: metroNIDAZOLE/NS 500 MG/100 ML PIGGYBACK 100 MG IV (21:19)
[2023-06-12] MEDS: Lactated Ringers 1,000 ML 100 ML IVCONT (21:27)
[2023-06-12] MEDS: levoFLOXacin/D5W 750 MG/150 ML PIGGYBACK 100 MG IV (22:27)
[2023-06-13] VITALS (9 sets, daily range): BP systolic 116–144; BP diastolic 63–85; PULSE 46–70; RESP 18–20; TEMP 36–36.7; O2SAT 95–98
[2023-06-13] MEDS: Acetaminophen 1,000 MG/100 ML PIGGYBACK 400 MG IV ×4 (00:27→20:20)
[2023-06-13] MEDS: HYDROmorphone HCl 0.5 MG/0.5 ML SYRINGE 1 MG IVPUSH ×4 (02:18→20:07)
[2023-06-13 04:14] LABS: HIV AB/AG Nonreactive (Nonreactive); HIV Num 1 0.04 S/CO (0.00-0.99)
[2023-06-13 05:54] LABS: Transglutaminase IgA <1.0 U/mL
[2023-06-13] MEDS: Pantoprazole Sodium 40 MG/10 ML VIAL IVPUSH (06:08)
[2023-06-13] MEDS: metroNIDAZOLE/NS 500 MG/100 ML PIGGYBACK 100 MG IV ×3 (06:32→22:35)
--- NOTE | 2023-06-13 08:13 | PM.CNGS ---
History of Present Illness Consult details Consult date: 06/13/23 Narrative: 23-year-old male admitted on 06/10/2023 for recurrent abdominal pain. He has had multiple visits to the ER for lower abdominal pain. He was admitted for mesenteric adenitis on CT scan findings 1 month ago. He has had multiple returns to the ER since then. On his last ER visit prior to this, he had thickening of the transverse colon wall on CT scan. He described having multiple episodes of diarrhea up to a times a day and occasionally with some blood. He says that this would be very loose and watery He was admitted again because of this abdominal pain. He describes this mostly in the lower abdomen and usually crampy He denies any vomiting or nausea. He denies any fever or chills at home When he was admitted 3 days ago, there was note of worsening of thickening of the colon wall which involved right colon and transverse as well as parts of the left colon. He does state today that his abdominal pain has been steadily improving for the past 2-3 days since he had been in the hospital. He says his diarrhea has also resolved. He does state that he still has abdominal pain although this is much less in intensity. At some point, he also was diagnosed to have a urinary tract infection. Review of Systems Constitutional: Constitutional: Denies chills and Denies fever(s) Cardiovascular: Cardiovascular: Denies chest pain, Denies dyspnea and Denies dyspnea on exertion Respiratory: Respiratory: Denies cough, Denies dyspnea and Denies dyspnea on exertion Gastrointestinal: Gastrointestinal: Reports hematochezia, Denies change in bowel habits and Reports diarrhea Genitourinary: Genitourinary: Denies hematuria and Denies difficulty urinating Musculoskeletal: Musculoskeletal: Denies back pain and Denies limited range of motion Neurologic: Denies focal weakness and Denies convulsions Psychiatric: Psychiatric: Denies depression and Denies mood swings PMFSH Past Medical History Medical History Asthma Social History Social History Household Members: Other Household Members Other:: mother Housing: Apartment Do you presently have visiting nurse or other home services: No Patient Tobacco Use Status: Never used Tobacco Substance Use Type: Marijuana service: No Meds Allergies Allergy/AdvReac Type Severity Reaction Status Date / Time amoxicillin [AMOXICILLIN] Allergy Unknown RASH Verified 06/10/23 07:10 Active Medications: Current Medications Albuterol Sulfate (Albuterol Sulfate (0.083%) 2.5 Mg/3 Ml Vial.Neb) 2.5 mg INHALE ONCE PRN PRN Reason: Shortness of Breath/Wheezing Dicyclomine HCl (Dicyclomine Hcl 10 Mg Capsule) 10 mg PO QID PRN PRN Reason: abdominal pain Last Admin: 06/12/23 00:06 Dose: 10 mg Hydromorphone HCl (Hydromorphone Hcl 0.5 Mg/0.5 Ml Syringe) 1 mg IVPUSH Q4H PRN; Protocol PRN Reason: Pain, Severe (Pain Scale 7-10) Last Admin: 06/13/23 06:30 Dose: 1 mg Acetaminophen (Ofirmev) 1,000 mg in 100 mls @ 400 mls/hr IV Q6H [facility] Stop: 06/14/23 09:00 Last Infusion: 06/13/23 06:33 Dose: Infused Lactated Ringer's (Lr) 1,000 mls @ 100 mls/hr IVCONT .Q10H [facility] Last Admin: 06/12/23 21:27 Dose: 100 mls/hr Levofloxacin (Levaquin) 750 mg in 150 mls @ 100 mls/hr IV Q24H [facility] Last Infusion: 06/13/23 00:25 Dose: Infused Metronidazole (Flagyl) 500 mg in 100 mls @ 100 mls/hr IV Q8H [facility] Last Admin: 06/13/23 06:32 Dose: 100 mls/hr Melatonin (Melatonin 3 Mg Tablet) 6 mg PO BEDTIME PRN PRN Reason: Insomnia Ondansetron HCl (Ondansetron Hcl 4 Mg/2 Ml Vial) 4 mg IVPUSH Q8H PRN PRN Reason: Nausea and Vomiting Pantoprazole Sodium (Pantoprazole Sodium 40 Mg/10 Ml Vial) 40 mg IVPUSH DAILY@0630 [facility] Last Admin: 06/13/23 06:08 Dose: 40 mg Sodium Chloride (0.9 % Sodium Chloride Flush 3 Ml Syringe) 3 ml IVFLUSH QSHIFT [facility] Last Admin: 06/13/23 00:34 Dose: Not Given Home Medications ?Medication ?Instructions ?Recorded ?Confirmed ?Last Taken ?Type dicyclomine 10 mg capsule 10 mg PO QID PRN abdominal pain 06/10/23 06/10/23 Unknown History ondansetron 4 mg disintegrating 4 mg PO Q8H PRN nausea/vomiting 06/10/23 06/10/23 Unknown History tablet Physical Exam Vital Signs: Vital Signs: Last Vital Signs Temp 96.8 F 06/13/23 07:54 Pulse 46 L 06/13/23 07:54 Resp 18 06/13/23 07:54 BP 116/63 06/13/23 07:54 Pulse Ox 97 06/13/23 07:54 O2 Del Method Room Air 06/13/23 07:54 BMI result Body Mass Index 30.7 Const: Other: Appears obese General: comfortable and no acute distress Orientation/consciousness: patient oriented x3 Neck: Neck: Yes no lymphadenopathy Resp: Auscultation: clear to auscultation bilaterally Cardio: Rhythm: regular rhythm GI: Palpation (GI): Soft to palpation, Tenderness to palpation present (GI) (Mild tenderness diffusely) and no guarding Neuro: General: patient oriented x3 Results Labs 06/14/23 05:30 06/14/23 05:30 Labs: Abnormal lab results 06/12/23 Range/Units 17:35 C-Reactive Protein 3.44 H (< or = 0.50) mg/dL Urine 06/10/23 Range/Units 07:18 Urine Color Yellow Urine Appearance Cloudy Urine pH 6.5 (5.0-9.0) Ur Specific Stanley >= 1.030 H (1.005-1.025) Urine Protein 100 (2+) H (Neg-Trace) mg/dL Urine Glucose (UA) See Note (Negative) mg/dL All other labs normal. Imaging Abdomen CT scan report/results: report reviewed and image reviewed CT scan - pelvis: report reviewed and image reviewed Assessment and Plan (1) Colitis: Status: Acute He has had this recurrent abdominal pain for the past 4-5 weeks now, mostly in the lower abdomen. This has been associated with severe diarrhea. His CAT scans suggest colitis on various segments of the colon. He had severe episode on admission 4 days ago He seems to have had significant improvement of his abdominal pain and diarrhea. His exam is benign although with some mild tenderness diffusely Etiology of his colitis and the uncertain. I have seen his CAT scan from last night and thickening of the colon seemed to have improved as well I would recommend input from the radiologic technology instructor with regards to etiology of his colitis. He had a colonoscopy last night with Dr. Duran which showed some ulcers in parts of the colon, most prnounced in the right colon, and biopsies are pending. He otherwise looks well and seems to be improving. We will follow along while he is in the hospital. Procedures Date of Service Date of Service: 06/15/23
--- NOTE | 2023-06-13 08:39 | PC.NURSE ---
Pt. fell 06/12/23, alert and oriented *4, refused bed alarm and or assist with ambulation. Education provided about safety and hospital environment, call trejo within reach, encouraged to use it when needed.
--- NOTE | 2023-06-13 08:59 | P.PNIM_ITS ---
Subjective Subjective Date of Service: 06/13/23 Interval History: f/u on colitis reports less pain, no n/v Physical Exam 2 Vital Signs: Vital Signs: Last Vital Signs Temp 96.8 F 06/13/23 07:54 Pulse 46 L 06/13/23 07:54 Resp 18 06/13/23 07:54 BP 116/63 06/13/23 07:54 Pulse Ox 97 06/13/23 07:54 O2 Del Method Room Air 06/13/23 07:54 BMI result Body Mass Index 30.7 General: AO X 3, no acute distress Resp: CTA bilateral CVS: S1,S2,RRR GI: +BS, NT, no distention Skin: No rash Neuro: motor grossly intact Psych: appropriate affect Objective Data Active Medications Albuterol Sulfate (Albuterol Sulfate (0.083%) 2.5 Mg/3 Ml Vial.Neb) 2.5 mg INHALE ONCE PRN PRN Reason: Shortness of Breath/Wheezing Dicyclomine HCl (Dicyclomine Hcl 10 Mg Capsule) 10 mg PO QID PRN PRN Reason: abdominal pain Last Admin: 06/12/23 00:06 Dose: 10 mg Documented By: RYLEY Hydromorphone HCl (Hydromorphone Hcl 0.5 Mg/0.5 Ml Syringe) 1 mg IVPUSH Q4H PRN; Protocol PRN Reason: Pain, Severe (Pain Scale 7-10) Last Admin: 06/13/23 06:30 Dose: 1 mg Documented By: RYLEY Acetaminophen (Ofirmev) 1,000 mg in 100 mls @ 400 mls/hr IV Q6H [facility] Stop: 06/14/23 09:00 Last Infusion: 06/13/23 06:33 Dose: Infused Documented By: RYLEY Lactated Ringer's (Lr) 1,000 mls @ 100 mls/hr IVCONT .Q10H [facility] Last Infusion: 06/13/23 08:33 Dose: Infused Documented By: SAPPHIRE Levofloxacin (Levaquin) 750 mg in 150 mls @ 100 mls/hr IV Q24H [facility] Last Infusion: 06/13/23 00:25 Dose: Infused Documented By: RYLEY Metronidazole (Flagyl) 500 mg in 100 mls @ 100 mls/hr IV Q8H [facility] Last Infusion: 06/13/23 08:33 Dose: Infused Documented By: SAPPHIRE Melatonin (Melatonin 3 Mg Tablet) 6 mg PO BEDTIME PRN PRN Reason: Insomnia Ondansetron HCl (Ondansetron Hcl 4 Mg/2 Ml Vial) 4 mg IVPUSH Q8H PRN PRN Reason: Nausea and Vomiting Pantoprazole Sodium (Pantoprazole Sodium 40 Mg/10 Ml Vial) 40 mg IVPUSH DAILY@0630 [facility] Last Admin: 06/13/23 06:08 Dose: 40 mg Documented By: RYLEY Sodium Chloride (0.9 % Sodium Chloride Flush 3 Ml Syringe) 3 ml IVFLUSH QSHIFT [facility] Last Admin: 06/13/23 08:32 Dose: Not Given Documented By: SAPPHIRE Non-Admin Reason: IV Running Labs 06/12/23 05:47 06/12/23 05:47 Labs: Laboratory Results - last 24 hr 06/11/23 06/12/23 06/13/23 09:20 17:35 06:02 Hold Purple Top SEE NOTE Lactic Acid 0.8 Lactate Dehydrogenase 135 C-Reactive Protein 3.44 H IgA 295 Tiss Transglutamin IgA <1.0 HIV 1&2 Ab/P24 Ag 4thGn Nonreactive Assessment and Plan (1) Acute hypokalemia: Status: Acute (2) Colitis: Status: Acute (3) Leukocytosis: Status: Acute (4) Abdominal pain: Status: Acute Assessment and Plan: 23-year-old male with a PMH significant for?mild intermittent asthma who presents to the ED for evaluation of lower abdominal pain x1 month and hematochezia this morning. He is being treated for colitis Acute colitis--etiology unclear, oveall pain is better. Colnooscopy by Volodymyr on 06/11 showed 1. Ulcerated colon (biopsy) 2. Internal hemorrhoids -Dx includes infectious colitis (r/o CMV), ischemia (? IMHMV) and inflammatory colitis. -Await path results - Surgery consultation - Labs ordered: IBD panel, lactate, LDH, CRP 3.4 and HIV Ab negative - CTA--result pending -stopped IV steroid -Levaquin and Flagyl added 06/11 -clear liquid diet Hematochezia--h/h, stable, check CBC Bradycardia--assymptomatic, no w/u indicated Leukocytosis d/t steroid, follow Hypokalemia repleted and resolved. Question of gynecomastia CT showing bilateral gynecomastia, [id number] further workup outpatient with pcp. Mild intermittent asthma Not in acute exacerbation Patient reports has not used rescue inhaler in over 1 year Albuterol p.r.n. Fall, he reports fall in the bathroom after sliping and falling on back did hit head: exam no hematoma, no change in mental status, joints are all intact, no brusing.. Will observe clinically Full Code DVT Prophylaxis: Pneumatic boots due to hematochezia, out of bed and ambulation need for inpt: IV Abx for colitis, and ongoing w/u Quality Stroke Does the patient have a stroke diagnosis?: No VTE Prior VTE?: No VTE Risk Level:: Medical - moderate - high VTE Device Contraindication: N/A - Device Ordered VTE Drug Contraindication: Treatment Not Indicated
[2023-06-13 09:11] LABS: MANUAL DIFF FLAG NO
--- NOTE | 2023-06-13 09:11 | HO.POSTANES ---
Post Anesthesia Evaluation Post Anesthesia Evaluation Date of Service: 06/12/23 Vital Signs: Vital Signs Temp Pulse Resp BP Pulse Ox O2 Del Method 06/13/23 07:54 96.8 F 46 L 18 116/63 97 Room Air 06/13/23 02:09 97.4 F 46 L 18 130/84 98 Room Air 06/13/23 01:00 20 06/12/23 23:30 97.2 F 48 L 18 123/64 97 Room Air Anesthesia: TIVA Mental Status: Awake Pain Control: Satisfactory Nausea/Vomiting: None Hydration: Adequate Anesthesia-Related Issues: No Anes. Related Issues
[2023-06-13 09:14] LABS: Basophils Percent Auto 0.1 % (0-2); Eosinophils Absolute Auto 0.1 X10*3/uL (0.0-0.4); Eosinophils Percent Auto 0.7 % (0-4); Hematocrit 34.9 % (42.0-52.0); Hemoglobin 11.6 g/dl (14.0-18.0); Imm Gran Abs Auto 0.57 X10*3/uL (0.00-0.03); Imm Gran Pct Auto 3.9 % (0.0-0.4); Lymphocytes Absolute Auto 2.1 X10*3/uL (1.2-4.9); Lymphocytes Percent Auto 14.1 % (20-40); Mean Corpuscular HGB Conc 33.2 g/dl (31.0-36.0); Mean Corpuscular Hemoglobin 28.2 pg (27.0-33.0); Mean Corpuscular Volume 84.7 fL (80.0-98.0); Mean Platelet Volume 8.6 fL (9.4-12.4); Monocytes Absolute Auto 1.4 X10*3/uL (0.1-1.2); Monocytes Percent Auto 9.2 % (2-11); Neutrophils Absolute Auto 10.6 x10*3/uL (2.0-8.3); Platelet Count 405 X10*3/uL (160-400); Red Blood Count 4.12 X10*6/uL (4.60-5.80); Red Cell Distribution Width 12.8 % (11.0-16.0); White Blood Count 14.8 X10*3/uL (4.8-10.8)
[2023-06-13] MEDS: Dicyclomine HCl 10 MG CAPSULE PO ×2 (09:33→22:35)
[2023-06-13] MEDS: Lactated Ringers 1,000 ML 100 ML IVCONT ×2 (11:10→20:15)
[2023-06-13] MEDS: LORazepam 2 MG/ML VIAL 1 MG IVPUSH (17:49)
--- NOTE | 2023-06-13 17:54 | PC.NURSE ---
Pt. became extremely anxious, agitated, fearful, stating that we are giving him too much pain meds, he stated that he's worried something gonna happen like what happened to his dad while in Hospital. Support given, provider notified and Ativan IV ordered, mother at bed side.
[2023-06-13] MEDS: Melatonin 3 MG TABLET 6 MG PO (22:34)
[2023-06-13] MEDS: levoFLOXacin/D5W 750 MG/150 ML PIGGYBACK 100 MG IV (22:35)
[2023-06-14 02:50] VITALS: RESP 18
[2023-06-14] MEDS: HYDROmorphone HCl 0.5 MG/0.5 ML SYRINGE 1 MG IVPUSH ×3 (02:50→13:09)
[2023-06-14] MEDS: Acetaminophen 1,000 MG/100 ML PIGGYBACK 400 MG IV ×2 (02:58→09:12)
[2023-06-14] MEDS: Pantoprazole Sodium 40 MG/10 ML VIAL IVPUSH (05:41)
[2023-06-14] MEDS: metroNIDAZOLE/NS 500 MG/100 ML PIGGYBACK 100 MG IV ×2 (05:41→13:04)
[2023-06-14] MEDS: Lactated Ringers 1,000 ML 100 ML IVCONT (05:42)
[2023-06-14 06:03] LABS: Hematocrit 37.7 % (42.0-52.0); Hemoglobin 12.7 g/dl (14.0-18.0); Mean Corpuscular HGB Conc 33.7 g/dl (31.0-36.0); Mean Corpuscular Hemoglobin 27.9 pg (27.0-33.0); Mean Corpuscular Volume 82.7 fL (80.0-98.0); Mean Platelet Volume 7.7 fL (9.4-12.4); Platelet Count 395 X10*3/uL (160-400); Red Blood Count 4.56 X10*6/uL (4.60-5.80); Red Cell Distribution Width 12.6 % (11.0-16.0); White Blood Count 15.5 X10*3/uL (4.8-10.8)
[2023-06-14 06:20] LABS: Anion Gap 14 (12-20); Blood Urea Nitrogen 6 mg/dL (9-16); Calcium 8.7 mg/dL (8.4-10.2); Carbon Dioxide 30 mmol/L (22-29); Chloride 97 mmol/L (96-108); Creatinine Clr Calc Pharmacy 195.8; Estimated Glomerular Filt Rate > 60; Glucose Random 80 mg/dL (60-115); Potassium 3.7 mmol/L (3.3-5.1); Sodium 137 mmol/L (135-145)
[2023-06-14 08:00] VITALS: BP 122/73; PULSE 64; RESP 18; TEMP 36.3; O2SAT 97
--- NOTE | 2023-06-14 08:43 | P.PNIM_ITS ---
Subjective Subjective Date of Service: 06/14/23 Interval History: f/u on colitis he feels better today, no blood in the stool, no pain, and tolerating liquid diet Physical Exam 2 Vital Signs: Vital Signs: Last Vital Signs Temp 97.3 F 06/14/23 08:00 Pulse 64 06/14/23 08:00 Resp 18 06/14/23 08:00 BP 122/73 06/14/23 08:00 Pulse Ox 97 06/14/23 08:00 O2 Del Method Room Air 06/14/23 08:00 BMI result Body Mass Index 30.7 General: AO X 3, no acute distress Resp: CTA bilateral CVS: S1,S2,RRR GI: +BS, NT, no distention Skin: No rash Neuro: motor grossly intact Psych: appropriate affect Objective Data Active Medications Albuterol Sulfate (Albuterol Sulfate (0.083%) 2.5 Mg/3 Ml Vial.Neb) 2.5 mg INHALE ONCE PRN PRN Reason: Shortness of Breath/Wheezing Dicyclomine HCl (Dicyclomine Hcl 10 Mg Capsule) 10 mg PO QID PRN PRN Reason: abdominal pain Last Admin: 06/13/23 22:35 Dose: 10 mg Documented By: COURTNEY Hydromorphone HCl (Hydromorphone Hcl 0.5 Mg/0.5 Ml Syringe) 1 mg IVPUSH Q4H PRN; Protocol PRN Reason: Pain, Severe (Pain Scale 7-10) Last Admin: 06/14/23 07:21 Dose: 1 mg Documented By: OLGA Lactated Ringer's (Lr) 1,000 mls @ 100 mls/hr IVCONT .Q10H [facility] Last Admin: 06/14/23 05:42 Dose: 100 mls/hr Documented By: COURTNEY Levofloxacin (Levaquin) 750 mg in 150 mls @ 100 mls/hr IV Q24H [facility] Last Infusion: 06/14/23 00:05 Dose: Infused Documented By: COURTNEY Metronidazole (Flagyl) 500 mg in 100 mls @ 100 mls/hr IV Q8H [facility] Last Infusion: 06/14/23 07:09 Dose: Infused Documented By: COURTNEY Acetaminophen (Ofirmev) 1,000 mg in 100 mls @ 400 mls/hr IV Q6H [facility] Stop: 06/14/23 09:00 Last Infusion: 06/14/23 03:34 Dose: Infused Documented By: COURTNEY Melatonin (Melatonin 3 Mg Tablet) 6 mg PO BEDTIME PRN PRN Reason: Insomnia Last Admin: 06/13/23 22:34 Dose: 6 mg Documented By: COURTENY Ondansetron HCl (Ondansetron Hcl 4 Mg/2 Ml Vial) 4 mg IVPUSH Q8H PRN PRN Reason: Nausea and Vomiting Pantoprazole Sodium (Pantoprazole Sodium 40 Mg/10 Ml Vial) 40 mg IVPUSH DAILY@0630 [facility] Last Admin: 06/14/23 05:41 Dose: 40 mg Documented By: COURTNEY Sodium Chloride (0.9 % Sodium Chloride Flush 3 Ml Syringe) 3 ml IVFLUSH QSHIFT [facility] Last Admin: 06/14/23 07:21 Dose: Not Given Documented By: OLGA Non-Admin Reason: IV Running Labs 06/14/23 05:30 06/14/23 05:30 Labs: Laboratory Results - last 24 hr 06/13/23 06/14/23 06:02 05:30 MCV 84.7 82.7 MCH 28.2 27.9 MCHC 33.2 33.7 RDW 12.8 12.6 Plt Count 405 H 395 MPV 8.6 L 7.7 L Immature Gran % (Auto) 3.9 H Neut % (Auto) 72.0 Lymph % (Auto) 14.1 L [place] % (Auto) 9.2 Eos % (Auto) 0.7 Baso % (Auto) 0.1 Lymph # (Auto) 2.1 [place] # (Auto) 1.4 H Eos # (Auto) 0.1 Baso # (Auto) 0.0 Abs Immat Gran (auto) 0.57 H Absolute Neuts (auto) 10.6 H Absolute Nucleated RBC 0.000 0.000 Nucleated RBC % (auto) 0.0 0.0 Anion Gap 14 Estim Creat Clear Calc 195.8 Estimated GFR > 60 Random Glucose 80 Calcium 8.7 D Assessment and Plan (1) Acute hypokalemia: Status: Acute (2) Colitis: Status: Acute (3) Leukocytosis: Status: Acute (4) Abdominal pain: Status: Acute Assessment and Plan: 23-year-old male with a PMH significant for?mild intermittent asthma who presents to the ED for evaluation of lower abdominal pain x1 month and hematochezia this morning. He is being treated for colitis Acute colitis--etiology unclear, better. Colnooscopy by Volodymyr on 06/11 showed 1. Ulcerated colon (biopsy) 2. Internal hemorrhoids -Dx includes infectious colitis (r/o CMV), ischemia (? IMHMV) and inflammatory colitis. -Await path results - Surgery consultation--no indication for procedure - Labs ordered: IBD panel, lactate, LDH, CRP 3.4 and HIV Ab negative - CTA--no mesenteric ischemia -stopped IV steroid -Levaquin and Flagyl added 06/11, WBC going down -advance to full liquid and regular food by noon Hematochezia--h/h, stable, h/h stable Bradycardia--assymptomatic, no w/u indicated Leukocytosis d/t steroid, follow Hypokalemia repleted and resolved. Question of gynecomastia CT showing bilateral gynecomastia, [id number] further workup outpatient with pcp. Mild intermittent asthma Not in acute exacerbation Patient reports has not used rescue inhaler in over 1 year Albuterol p.r.n. Fall, he reports fall in the bathroom after sliping and falling on back did hit head: exam no hematoma, no change in mental status, joints are all intact, no brusing.. Will observe clinically Full Code DVT Prophylaxis: Pneumatic boots due to hematochezia, out of bed and ambulation need for inpt: IV Abx for colitis, and ongoing w/u Quality Stroke Does the patient have a stroke diagnosis?: No VTE Prior VTE?: No VTE Risk Level:: Medical - moderate - high VTE Device Contraindication: N/A - Device Ordered VTE Drug Contraindication: Treatment Not Indicated
--- NOTE | 2023-06-14 12:34 | P.PNGI_ITS ---
Subjective Subjective Date of Service: 06/14/23 Interval History: Patient seen and evaluated at bedside. Reports improvement in abdominal pain. Diarrhea has resolved. Was able to tolerate solid intake this morning without throwing up or having worsening of his abdominal pain. CT abdomen and pelvis reviewed, no mesenteric narrowing or occlusion. Labs with downtrending leukocytosis. HIV negative. Remaining labs including immunoglobulins T spot, IBD serology pending. CRP down to 3.4 Critical Care Time (minutes): 0 Physical Exam 2 Vital Signs: Vital Signs: Last Vital Signs Temp 97.3 F 06/14/23 08:00 Pulse 64 06/14/23 08:00 Resp 18 06/14/23 08:00 BP 122/73 06/14/23 08:00 Pulse Ox 97 06/14/23 08:00 O2 Del Method Room Air 06/14/23 08:00 BMI result Body Mass Index 30.7 No acute distress Abdomen soft, nontender, no guarding Objective Data Labs 06/14/23 05:30 06/14/23 05:30 Labs: Laboratory Results - last 24 hr 06/14/23 05:30 WBC 15.5 H RBC 4.56 L Hgb 12.7 L Hct 37.7 L MCV 82.7 MCH 27.9 MCHC 33.7 RDW 12.6 Plt Count 395 MPV 7.7 L Absolute Nucleated RBC 0.000 Nucleated RBC % (auto) 0.0 Sodium 137 Potassium 3.7 Chloride 97 Carbon Dioxide 30 H Anion Gap 14 BUN 6 L Creatinine 0.68 Estim Creat Clear Calc 195.8 Estimated GFR > 60 Random Glucose 80 Calcium 8.7 D Microbiology Microbiology Results: Microbiology 06/10/23 Unknown Urine clean catch - Urine vicente top Urine Culture - Final No growth. Procedures Date of Service Date of Service: 06/14/23 Progress Note: A&P Assessment and plan (1) Hematochezia: Status: Acute (2) Abdominal pain: Status: Acute (3) Colitis: Status: Acute Plan Colon ischemia versus infectious versus inflammatory colitis on the differential. Currently with improving clinical course. Plan: -can switch antibiotics to p.o. to be continued for 7 days total. -can advance diet to regular diet -pathology and labs awaited, and can be reviewed as outpatient, will arrange follow up. Time Spent With Patient Time: Total time managing care of this patient today ____ minutes. Quality Stroke Does the patient have a stroke diagnosis?: No VTE Prior VTE?: No VTE Risk Level:: Medical - moderate - high VTE Device Contraindication: N/A - Device Ordered VTE Drug Contraindication: Treatment Not Indicated
[2023-06-14 15:04] VITALS: BP 128/73; PULSE 59; RESP 18; TEMP 36.6; O2SAT 97
[2023-06-14] MEDS: 0.9 % Sodium Chloride Flush 3 ML SYRINGE IVFLUSH (15:29)
--- NOTE | 2023-06-14 17:07 | P.DS_ITS ---
DS: Providers Provider Date of Service: 06/14/23 Date of admission: 06/10/23 13:12 Primary care physician: None Physician Consults: 06/10/23 10:01 Consult to Gastroenterology Stat Consulting Provider: Laura Helm Reason for consultation: worsening colitis Has provider been notified: Yes 06/10/23 15:34 Consult to Gastroenterology Routine Consulting Provider: [facility] G[facility]ology Services Reason for consultation: colitis ( received multiple antibiotics course) Has provider been notified: No 06/12/23 15:46 Consult to General Surgery Routine Consulting Provider: [facility] General Surgeons Reason for consultation: Colitis, concnern for ischemia DS: Diagnosis Discharge Diagnosis (1) Hematochezia: Status: Acute (2) Abdominal pain: Status: Acute (3) Colitis: Status: Acute DS: Summary Hospital Course Hospital Course: admission hpi Chief Complaint: Abdominal pain, BRBPR Pt is a 23-year-old male with a PMH significant for?mild intermittent asthma who presents to the ED for evaluation of lower abdominal pain x1 month and hematochezia this morning. Patient has been experiencing intermittent severe abdominal pain for the past 5 weeks with multiple presentations to the ED. Was admitted from 05/09-05/10 for mesenteric adenitis and discharged home on Bactrim. Came back on 05/12 with lower abdominal pain and treated for likely UTI with cefuroxime. UA culture ended up being negative. On 06/02 pt again presented with similar symptoms of lower abdominal pain, nausea, vomiting, and diarrhea; CT this time showed colitis of transverse colon. Did not want to be admitted and was sent home on levofloxacin. Pt reports he has completed all 3 courses of abx. Re-presented again today after this morning experienced a large amount of bright red blood per rectum. Reports he has had chronic diarrhea 6-8 episodes daily this past month. Occasionally noted a small amount of blood in stool, but nothing like today's episode. Continues to severe lower abdominal pain. Describes it as sharp and crampy in nature. Reports vomitus yesterday had flecks of blood in it. Has had 30+ weight loss in the past month. Has not been able to tolerate much solid food., though is able to drink liquids. Denies family history of autoimmune disorders or known IBD. No fever, chills. Denies polyuria or dysuria. No chest pain/pressure, palpitations. Denies shortness of breath. In the ED vital signs are largely stable, WNL. Labs were significant for leukocytosis of 19.4, H&H 13.3/39.1, potassium 3 2, ALT 49, alk-phos 151, ESR 67, and CRP 10.47. UA Likely negative for UTI. Stool positive for occult blood. Tested negative for flu, RSV, COVID. CT of abdomen and pelvis today found worsening colitis with similar mild diffuse wall thickening bladder questionable for cystitis. Also found bilateral gynecomastia with left greater than right. Pt was treated with ondansetron, Solu-Medrol, morphine, IVF, potas sium chloride, and Dilaudid. Pt will be admitted to the hospital for treatment and further evaluation of intractable abdominal pain with hematochezia in the setting of worsening colitis. hospital course: he presented with abdominal pain and bright red blood per rectum and CT finding of colitis and concern for IBD, given history of multiple antibiotics use, C dif was under consideration as well however serology was negative. Initially he was treated with IV steroid and was evaluated by Gastroenterology and had a Colnooscopy by Volodymyr on 06/11 which showed 1. Ulcerated colon (biopsy) 2. Internal hemorrhoids DDx includes infectious colitis (r/o CMV), ischemia (? IMHMV) and inflammatory colitis. Biopsy result was pending at the time of this report. Following colnoscopy. He was subsequently steroid was discontinued, started on Levaquin and Flagyl for possible infectious colitis and seemed to repsond. Further testing included negative HIV, CRP was only 3.5, a CTA of abdomen and pelvis showed no mesenteric ischemia. He was seen in surgical consultation with no indication for procedure. He continued to show improvement, diet was advanced to regular diet which he tolerated. He was discharged to complete coure of Levaquin and Flagyl and was to follow up with Dr. Helm to review biopsy result. Hematochezia--h/h, stable, h/h stable Bradycardia--assymptomatic, no w/u indicated Leukocytosis d/t steroid Hypokalemia repleted and resolved. Question of gynecomastia CT showing bilateral gynecomastia, [id number]-[id number]-right further workup outpatient with pcp. Mild intermittent asthma Not in acute exacerbation Patient reports has not used rescue inhaler in over 1 year Albuterol p.r.n. Time Attestation Discharge Coordination Time (in mins): 35 Quality: Safe Use of Opioids Does Pt have an Active Cancer Diagnosis on the Problem List?: No Quality: Stroke Does the patient have a stroke diagnosis?: No Physical Exam Vital Signs: Vital Signs: Last Vital Signs Temp 97.9 F 06/14/23 15:04 Pulse 59 06/14/23 15:04 Resp 18 06/14/23 15:04 BP 128/73 06/14/23 15:04 Pulse Ox 97 06/14/23 15:04 O2 Del Method Room Air 06/14/23 15:04 BMI result Body Mass Index 30.7 No acute distress Abdomen soft, nontender, no guarding DS: Data Data Completed and Pending Pending studies at discharge: Pending at discharge 06/12/23 15:16 Surgical [PTH] Routine Labs on day of discharge: Laboratory Results - last 24 hr 06/14/23 05:30 WBC 15.5 H RBC 4.56 L Hgb 12.7 L Hct 37.7 L MCV 82.7 MCH 27.9 MCHC 33.7 RDW 12.6 Plt Count 395 MPV 7.7 L Absolute Nucleated RBC 0.000 Nucleated RBC % (auto) 0.0 Sodium 137 Potassium 3.7 Chloride 97 Carbon Dioxide 30 H Anion Gap 14 BUN 6 L Creatinine 0.68 Estim Creat Clear Calc 195.8 Estimated GFR > 60 Random Glucose 80 Calcium 8.7 D Discharge Plan Discharge Anticipated Discharge Date/Time: 06/14/23 17:00 Patient Disposition: Home, Self-Care Discharge Diagnosis: Abdominal pain, colitis, hematochezia Referrals: Physician,None [Primary Care Provider] - 1 Week Laura Helm MD [Physician] - 1 Week (f/u on colitis s/p biopsy) Discharge Medications: New levofloxacin 500 mg tablet 500 mg PO DAILY 5 Days Qty: 5 0RF metronidazole 500 mg tablet 500 mg PO BID 10 Days Qty: 20 0RF Continued ondansetron 4 mg tablet,disintegrating 4 mg PO Q8H PRN (Reason: nausea/vomiting) dicyclomine 10 mg capsule 10 mg PO QID PRN (Reason: abdominal pain) Discontinued ibuprofen 600 mg tablet 600 mg PO Q8H PRN (Reason: pain) No Action tramadol 50 mg tablet 50 mg PO BID PRN (Reason: pain) 5 Days Qty: 5 0RF Rx Instructions: Take half a tablet twice a day Discharge Orders: Discharge Order (Routine); Ordered 06/14/23 Ordered By: Marv Encarnacion Diet: Advance to usual diet Activity on Discharge: As tolerated Stand Alone Forms: Patient Portal Discharge page Print Language: Sammarinese Care Plan Goals: full recovery from colitis and abdominal pain Health Concerns: colitis Plan of Treatment: take Levaquin and Flagyl as directed and follow up with Dr. Helm a week Call 911 or come to the emergency if you have severe abdominal pain, nausea vomitting, fever or blood in your stool Assessment: see above Discharge Date/Time: 06/14/23 18:16
[2023-06-14 17:14] LABS: Immunoglobulin G Subclass 1 536 mg/dL (382-929); Immunoglobulin G Subclass 2 300 mg/dL (241-700); Immunoglobulin G Subclass 3 30 mg/dL (22-178); Immunoglobulin G Subclass 4 40.8 mg/dL (4-86); Immunoglobulin G Total 909 mg/dL (600-1640)
[2023-06-14 17:33] LABS: Immunoglobulin A 238 mg/dL (47-310)
[2023-06-15 22:47] LABS: Angiotensin Converting Enzyme 15 U/L (9-67)
[2023-06-16 07:24] LABS: TS Negative Control Passed; TS Panel A 0; TS Panel B 0; TS Positive Control Passed; TSpotTB Negative (Negative)
[2023-06-16 23:28] LABS: Immunoglobulin D 19 mg/L (<179)
[2023-06-18 01:19] LABS: Calprotectin, Fecal 5810 mcg/g
[2023-06-18 21:28] LABS: Immunoglobulin E 720 kU/L (<OR=114)
== END 2023-06-14 18:16 | disposition home or self-care (01) | DRG 394 ==
LOC: HO.ED 10:08 → HO.EDOVER 13:22 → HO.S3 17:06
PROVIDERS: Internal Medicine; Admitting Provider Student in an Organized Health Care Education/Training Program; Emergency Provider Emergency Medicine; Visit Provider Internal Medicine
PROC: 0DJD8ZZ Inspection of Lower Intestinal Tract, Via Natural or Artificial Opening Endoscopic (ICD-10-PCS; CPT 45378; principal; 2023-06-12 14:20)
DX: K63.3 Ulcer of intestine (principal); K92.1 Melena; K52.9 Noninfective gastroenteritis and colitis, unspecified; E87.6 Hypokalemia; J45.20 Mild intermittent asthma, uncomplicated; N62 Hypertrophy of breast; K64.8 Other hemorrhoids; Z20.822 Contact with and (suspected) exposure to COVID-19; Z79.899 Other long term (current) drug therapy
CPT/HCPCS: 0241U; 36415; 74174; 74177; 80048; 80053; 81001; 81405; 81479; 82164; 82272; 82397; 82784; 82785; 83036; 83520; 83605; 83615; 83690; 83735; 83993; 85025; 85027; 86140; 86364; 86481; 87086; 87389; 87493; 87507; 88305; 88342; 88346; 88350; 99285; C9113; J0131; J1170; J1596; J1836; J1956; J2060; J2270; J2405; J2704; J2919; J7120; Q9967

== ENCOUNTER → 2023-06-10 13:12 | Outpatient (BNV) | payer SELFPAY | PROVIDERS: Admitting Provider Student in an Organized Health Care Education/Training Program; Emergency Provider Emergency Medicine; Visit Provider Internal Medicine | DX: K92.1 Melena (principal); R10.30 Lower abdominal pain, unspecified; K52.9 Noninfective gastroenteritis and colitis, unspecified | CPT/HCPCS: 43280; 45380; 99222; 99232 ==

== ENCOUNTER → 2023-06-10 13:12 | Outpatient (BNV) | payer SELFPAY | PROVIDERS: Admitting Provider Student in an Organized Health Care Education/Training Program; Emergency Provider Emergency Medicine; Visit Provider Student in an Organized Health Care Education/Training Program | DX: K92.1 Melena (principal); R10.30 Lower abdominal pain, unspecified; K52.9 Noninfective gastroenteritis and colitis, unspecified | CPT/HCPCS: 99223; 99232; 99239 ==

== ENCOUNTER → 2023-06-10 13:12 | Outpatient (BNV) | payer SELFPAY | PROVIDERS: Admitting Provider Student in an Organized Health Care Education/Training Program; Emergency Provider Emergency Medicine; Visit Provider Surgery | DX: K52.9 Noninfective gastroenteritis and colitis, unspecified (principal) | CPT/HCPCS: 99222 ==

== ENCOUNTER 2023-06-18 13:32 | Outpatient (AMB) | payer SELFPAY ==
--- NOTE | 2023-06-18 13:35 | A.OFFVIS_ITS ---
Vital Signs 06/18/23 13:56 Height 5 ft 10 in Weight 200 lb BMI 28.7 BP 123/71 Blood Pressure Location Lt brachial Position Sitting Pulse 135 H Intake Visit Reasons: ED f/u abdominal pains, pathology results Intake Note: Patient is seen in office for ED follow up, following abdominal pain &n pathology results. Pt c/o: onset month and a half, went to ED had labs and a colonoscopy, admits to abdominal discomfort, pain, unable to eat, lack of appetite, nausea and vomit 2 days ago, diarrhea, denies any other concerns GI concerns Surgical Services Asst Required: No Allergies amoxicillin [AMOXICILLIN] Allergy (Unknown, Verified 06/18/23 13:53) RASH HPI Comments Details: This is a 23-year-old gentleman with recent admission for abdominal pain and colitis, who presents for follow up after colonoscopy. Inpatient consultation: Patient reports that has had episodic abdominal pain for at least a month now. Was seen in the hospital last month as well for the same and treated as infectious colitis. This time, has been having lower abdominal pain for least a week, and then they before admission started having profuse diarrhea with blood in it. Blood appear to be much brighter and more in amount compared to previous episodes and therefore prompted his visit to the emergency room. No fevers, chills. Reports weight loss of around 10 lb in the last 1 month. [place] 06/12/23 Large punched out ulcers were noted starting from 40 cm to cecum. This was most pronounced in R colon. Adjacent mucosa was normal appearing but edematous. Cold forceps biopsies were taken for histology. Path: A. Colon, right, biopsy: Severely active colitis. B. Colon, left, biopsy: Chronic, mildly active, colitis; fragments of granu lation tissue and ulcer bed. Comment: No dysplasia or granulomata are seen. CMV immunostains will be addended 06/18/23: Here for follow up. Was not discharged with steroids. Completed levaquin, still on flagyl. Reports ongoing abd pain with loss of appetite. Path report reviewed with the pt and sudhir clinical assessment most consistent with Crohns. [facility] Medical History (Updated 06/18/23 @ 14:23 by Laura Helm MD) Asthma Surgical History (Updated 06/18/23 @ 13:53 by EZEQUIEL Beckman) Hx of colonoscopy Social History Household Members: Other Household Members Other:: mother Housing: Apartment Do you presently have visiting nurse or other home services: No Patient Tobacco Use Status: Never used Tobacco Substance Use Type: Marijuana service: No Review of Systems Const All systems reviewed & are unremarkable except as noted in HPI and below Physical Exam Vital Signs: Last Vital Signs Pulse 135 H 06/18/23 13:56 BP 123/71 06/18/23 13:56 BMI result Body Mass Index 28.7 NAD Pale appearing abd soft, tender A/Ox3, normal gait Assessment & Plan Assessment & Plan (1) Crohn's disease: Code(s): K50.90 - Crohn's disease, unspecified, without complications Category: Medical (2) Abdominal pain: Code(s): R10.9 - Unspecified abdominal pain Category: Medical Qualifiers: Abdominal location: lower abdomen, unspecified Qualified Code(s): R10.30 - Lower abdominal pain, unspecified Plan Overall clinical assessment consistent with crohns. CMV stains pending, IBD serology pending. In the meantime, will restart pred for remission. Labs ordered as below in anticipation of need for biologic therapy. Plan: - Prednisone 60mg x 2 weeks followed by a taper - Labs as below for hep, TPMT. TSPOT neg from last week. - CT enterography also ordered for small bowel evaluation - Follow up in 3 weeks Orders: Orders Varicella IgG Antibody Today K52.9 - Noninfective gastroenteritis and colitis, unspecified Hepatitis A IgG Today K52.9 - Noninfective gastroenteritis and colitis, unspecified Hepatitis B Surface Antibody Today K52.9 - Noninfective gastroenteritis and colitis, unspecified Hepatitis C Antibody Today K52.9 - Noninfective gastroenteritis and colitis, unspecified Vitamin D 25-OH Total Today K52.9 - Noninfective gastroenteritis and colitis, unspecified Hepatitis B Core Antibody Today K52.9 - Noninfective gastroenteritis and colitis, unspecified Hepatitis B Surface Antigen Today K52.9 - Noninfective gastroenteritis and colitis, unspecified Ferritin Today K52.9 - Noninfective gastroenteritis and colitis, unspecified IRON PROFILE Today K52.9 - Noninfective gastroenteritis and colitis, unspecified Vitamin B12 and Folate Today K52.9 - Noninfective gastroenteritis and colitis, unspecified CT enterography Today K50.90 - Crohn's disease, unspecified, without complications Thiopurine Methyltransferase Today K50.90 - Crohn's disease, unspecified, without complications Complete Blood Count no Diff Today K50.90 - Crohn's disease, unspecified, without complications Medications: New prednisone 60 mg (3 x 20 mg) PO DAILY 14 days 42 tabs 0RF K52.9 - Noninfective gastroenteritis and colitis, unspecified Coding Level of Care Code Est Pt Level 4 (36692) Diagnoses Crohn's disease K50.90 Lower abdominal pain R10.30 Abdominal location: lower abdomen, unspecified
[2023-06-18 13:56] VITALS: BP 123/71; PULSE 135; BMI 28.7
== END 2023-06-18 14:35 | disposition home or self-care (01) ==
PROVIDERS: Visit Provider Internal Medicine
DX: K50.90 Crohn's disease, unspecified, without complications (principal); R10.30 Lower abdominal pain, unspecified
CPT/HCPCS: 99214

== ENCOUNTER 2023-06-18 13:32 | Outpatient (REF) | payer SELFPAY ==
[2023-06-18 15:47] LABS: Hematocrit 42.7 % (42.0-52.0); Hemoglobin 13.9 g/dl (14.0-18.0); Mean Corpuscular HGB Conc 32.6 g/dl (31.0-36.0); Mean Corpuscular Hemoglobin 26.9 pg (27.0-33.0); Mean Corpuscular Volume 82.8 fL (80.0-98.0); Mean Platelet Volume 7.9 fL (9.4-12.4); Platelet Count 509 X10*3/uL (160-400); Red Blood Count 5.16 X10*6/uL (4.60-5.80); Red Cell Distribution Width 13.3 % (11.0-16.0); White Blood Count 24.2 X10*3/uL (4.8-10.8)
[2023-06-18 16:21] LABS: Iron 23 mcg/dL (45-160); Percent Iron Saturation 13 % (15-50); Total Iron Binding Capacity 183 mcg/dL (228-428); Unsaturated Iron Binding 160 ug/dL
[2023-06-18 16:32] LABS: Ferritin 858 ng/mL (20-250)
[2023-06-18 16:43] LABS: Vitamin B12 1150 pg/mL (200-900)
[2023-06-19 08:26] LABS: Hepatitis A Antibody IgG REACTIVE (Nonreactive); ~Hepatitis A Antibody IgG 8.58 S/CO (0.00-0.99)
[2023-06-19 08:27] LABS: HBS Num1 3.62 mIU/mL (0-7.99); HBc Num1 0.13 S/CO (0.00-0.79); HBsAGNum1 0.26 S/CO (0.00-0.99); Hepatitis B Core Antibody Nonreactive (Nonreactive); Hepatitis B Surface Antigen Negative (Negative); ~HepC Num1 0.19 S/CO (0.00-0.79); ~Hepatitis B Surface Antibody NONREACTIVE (Nonreactive); ~Hepatitis C Antibody Nonreactive (Nonreactive)
[2023-06-27 18:14] LABS: TPMT Activity 11
== END 2023-06-18 13:33 | disposition home or self-care (01) ==
LOC: HO.LAB 13:32
PROVIDERS: Visit Provider Internal Medicine
DX: K50.90 Crohn's disease, unspecified, without complications (principal); K52.9 Noninfective gastroenteritis and colitis, unspecified
CPT/HCPCS: 36415; 82306; 82607; 82728; 82746; 83540; 84433; 85027; 86704; 86706; 86708; 86787; 86803; 87340; 99212

== ENCOUNTER 2023-07-11 11:38 | Outpatient (AMB) | payer MEDICAID, SELFPAY ==
--- NOTE | 2023-07-11 11:45 | A.OFFVIS_ITS ---
Vital Signs 07/11/23 11:46 Height 5 ft 10 in Weight 193 lb 9.054 oz BMI 27.8 BP 132/85 Blood Pressure Location Lt brachial Position Sitting Pulse 102 H Intake Visit Reasons: 3 week follow up Intake Note: david presents in the office as a 3 week follow up. CC: Constant pains in the stomach, diarrhea and constipation. 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 Inpatient consultation: Patient reports that has had episodic abdominal pain for at least a month now. Was seen in the hospital last month as well for the same and treated as infectious colitis. This time, has been having lower abdominal pain for least a week, and then they before admission started having profuse diarrhea with blood in it. Blood appear to be much brighter and more in amount compared to previous episodes and therefore prompted his visit to the emergency room. No fevers, chills. Reports weight loss of around 10 lb in the last 1 month. [place] 06/12/23 Large punched out ulcers were noted starting from 40 cm to cecum. This was most pronounced in R colon. Adjacent mucosa was normal appearing but edematous. Cold forceps biopsies were taken for histology. Path: A. Colon, right, biopsy: Severely active colitis. B. Colon, left, biopsy: Chronic, mildly active, colitis; fragments of granulation tissue and ulcer bed. Comment: No dysplasia or granulomata are seen. CMV immunostains will be addended 06/18/23: Here for follow up. Was not discharged with steroids. Completed levaquin, still on flagyl. Reports ongoing abd pain with loss of appetite. Path report reviewed with the pt and niranjanall clinical assessment most consistent with Crohns. 07/11/23: Labs reviewed - serology not consistent with IBD per prometheus panel. CT entero pending. Main complaint remains pain that is not manageable unless he takes dilaudid. Did report response to pred but states sx recurred when he tapered down to 40 a few days ago. Diarrhea fluctuates and is somewhat episodic with days of multiple loose BMs followed by a few quite days. Pain does NOT correlate with diarrheal illness and reports almost constant. [facility] Medical History Asthma Surgical History Hx of colonoscopy Family History Maternal Grandfather Skin cancer Mother Diabetes Father Medical history unknown Other Family history of arthritis Social History Household Members: Other Household Members Other:: mother Housing: Apartment Do you presently have visiting nurse or other home services: No Alcohol intake: current Alcohol intake frequency: holidays/special occasions only Patient Tobacco Use Status: Never used Tobacco Substance Use Type: Marijuana service: No Current occupational status: unemployed Review of Systems Const All systems reviewed & are unremarkable except as noted in HPI and below Physical Exam Vital Signs: Last Vital Signs Pulse 102 H 07/11/23 11:46 BP 132/85 07/11/23 11:46 BMI result Body Mass Index 27.8 Young male NAD No cervical LN Abd soft tender no guarding Assessment & Plan Assessment & Plan (1) Crohn's disease: Code(s): K50.90 - Crohn's disease, unspecified, without complications Category: Medical (2) Abdominal pain: Code(s): R10.9 - Unspecified abdominal pain Category: Medical Qualifiers: Abdominal location: lower abdomen, unspecified Qualified Code(s): R10.30 - Lower abdominal pain, unspecified Plan Overall clinical assessment consistent with crohns however based on atypical appearance on endoscopy as well as neg prometheus panel have referred to Rheum for thorough evaluation of other etiologies/overlap sp inflammatory vasculitis. In the meantime we will start combo IFX + MTX. Azathioprine not considered at this time due to lymphoma risk given his young age. Plan: - Complete pred taper as scheduled - MTX 15mg qweekly - Baseline TSH and LFTs satisfactory - Infliximab 5mg/kg as per induction protocol followed by maintenance - CBC, LFTs and TSH 4 weeks after start date. - Await rheum input - delay in getting him appt as pt without any med insurance - CTE pending Follow up in 4 weeks (pt aware may be with different provider but can follow back me thereafter) Coding Level of Care Code Est Pt Level 5 (32008) Diagnoses Crohn's disease K50.90 Lower abdominal pain R10.30 Abdominal location: lower abdomen, unspecified
[2023-07-11 11:46] VITALS: BP 132/85; PULSE 102; BMI 27.8
== END 2023-07-11 13:03 | disposition home or self-care (01) ==
PROVIDERS: Visit Provider Internal Medicine
DX: K50.90 Crohn's disease, unspecified, without complications (principal)
CPT/HCPCS: 99214

== ENCOUNTER → 2023-07-11 11:38 | Outpatient (BNVA) | payer SELFPAY | PROVIDERS: Visit Provider Internal Medicine | DX: K50.90 Crohn's disease, unspecified, without complications (principal); R10.30 Lower abdominal pain, unspecified; Z98.890 Other specified postprocedural states | CPT/HCPCS: 99212 ==

== ENCOUNTER 2023-07-17 07:27 | Outpatient (AMB) | payer MEDICAID, SELFPAY ==
[2023-07-17 07:43] VITALS: BP 130/78; PULSE 134; O2SAT 97; BMI 27.7
--- NOTE | 2023-07-17 07:43 | A.OFFVIS_ITS ---
Vital Signs 07/17/23 07:43 Height 5 ft 10 in Weight 192 lb 14.472 oz BMI 27.7 BP 130/78 Blood Pressure Location Rt brachial Position Sitting Pulse 134 H Pulse Source Pulse Oximeter Pulse Oximetry (%) 97 Oxygen Delivery Method Room Air Intake Visit Reasons: High IgE. IBD panel and ANCA neg.? Vasculitis Intake Note: New pt presents today for consult, internally referred by Dr Helm. He reports abdominal pain and whole body cramping, mostly at night time. He is on prednisone and tramadol. 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 Helm for further evaluation. Symptoms started approximately 2 months ago. With abdominal pain, blood in the stool, he has lost 60 lb of weight. He had a colonoscopy which showed colitis as well as an ulcer. Labs show significantly elevated IgE level. His serology was not consistent with IBD but the overall clinical syndrome is consistent with Crohn's colitis. He was started on prednisone, methotrexate was also ordered but patient has not started it yet. Infliximab was ordered as well. Patient states that he has history of asthma as well as seasonal allergies as a child. However he grew out of it states that sometimes at night he hears himself wheeze but this has not been a problem. Has not had any shortness of breath and has not had to use an inhaler long time. He is unaware of any family history of an autoimmune rheumatic disease. He states that he gets intermittent left knee pain, usually worse at night, he has to walk up and gout his knee. He denies any joint swelling. Denies any current nasal polyps. [facility] Medical History Asthma Surgical History Hx of colonoscopy Family History Maternal Grandfather Skin cancer Mother Diabetes Father Medical history unknown Other Family history of arthritis Social History Household Members: Other Household Members Other:: mother Housing: Apartment Do you presently have visiting nurse or other home services: No Alcohol intake: current Alcohol intake frequency: holidays/special occasions only Patient Tobacco Use Status: Never used Tobacco Substance Use Type: Marijuana service: No Current occupational status: unemployed Review of Systems Const Reports fatigue, Reports headache(s), Reports weakness and Reports weight loss ENT Reports dizziness, Reports dry mouth, Reports headache(s) and Reports tinnitus Resp Reports wheezing GI Reports hematochezia and Reports diarrhea Musc Reports arthralgias, Denies joint swelling and Reports stiffness Neuro Reports dizziness, Reports headache(s) and Reports weakness Psych Reports anxiety Endo Reports fatigue and Reports polydipsia Aller/Immun Reports wheezing Physical Exam Vital Signs: Last Vital Signs Pulse 134 H 07/17/23 07:43 BP 130/78 07/17/23 07:43 Pulse Ox 97 07/17/23 07:43 Oxygen Delivery Method Room Air 07/17/23 07:43 BMI result Body Mass Index 27.7 Const General: cooperative, healthy appearing and comfortable Nutritional Appearance: overweight Orientation/consciousness: patient oriented x3 Limitations: no limitations HEENT Head: Yes normocephalic and Yes atraumatic Mouth: moist mucous membranes Resp Effort & Inspection: normal respiratory effort and able to speak in complete sentences Auscultation: clear to auscultation bilaterally Cardio Rate: regular rate Rhythm: regular rhythm Skin General skin exam: no rashes or lesions noted Neuro General: patient oriented x3 Extrem Other: No active synovitis Yanna test 10-15 cm Negative straight leg raise test Negative Fabere test bilaterally Normal range of motion of both knees without pain No ankle swelling or tenderness Normal nailfold capillaroscopy Results Reviewed Results Reviewed: Ordering Physician: Marv Encarnacion MD Date of Service: 06/12/23 Procedure(s): CT angio abdomen pelvis Accession Number(s): [id number] cc: Marv Encarnacion MD; Physician,None ~ EXAMINATION:? CTA ABDOMEN AND PELVIS CLINICAL INFORMATION:? Concern for ischemia TECHNIQUE: Multiple axial images were obtained through the abdomen and pelvis before and after administration of 80 mL of Omnipaque intravenously. Images were evaluated on independent dedicated 3-D workstation and 3-D images were reconstructed with concurrent radiologist supervision and subsequently interpreted. Specific vascular measurements are placed directly on the 3-D rendered images and are documented and stored in PACS. This CT examination was performed using dose optimization techniques as appropriate, variously including the following: *Automated exposure control. *Adjustment of mA and/or kV according to patient size (this includes techniques or standardized protocols for targeted exams where dose is matched to indication/reason for exam, i.e., extremities or head). *Use of iterative reconstruction technique. COMPARISON: CT abdomen and pelvis 06/10/2023 DLP:? 495 mGy-cm. FINDINGS: VASCULAR: Abdominal aorta: Normal in caliber Iliac arteries: Patent and normal in caliber Mesenteric arteries: The celiac artery is patent. The SMA origin is patent. Motion artifact in the proximal SMA. The mid and distal SMA are patent. Distal branches are patent. Renal arteries: Patent bilateral renal arteries. NONVASCULAR: Lung Bases: The lungs are clear with no evidence of inflammation or nodules.? Liver, Gallbladder, Biliary Tree: The liver is normal in size, shape, and attenuation. No focal hepatic lesion or biliary ductal dilatation is present. The gallbladder is unremarkable with no evidence of radiopaque gallstones, gallbladder wall thickening, or pericholecystic inflammatory changes.? Pancreas: Unremarkable.? Spleen: Unremarkable.? Adrenal Glands: Unremarkable.? Kidneys and Ureters: The kidneys are normal in size, shape, and attenuation. No hydronephrosis or hydroureter or calculi seen. No perinephric stranding.? Bladder: Unremarkable.? Gastrointestinal Tract: The small and large bowel are unremarkable.? Abdominal Wall: No hernia is demonstrated.? ? Lymph Nodes: Prominent mesenteric lymph nodes and prominent lymph nodes along the vasa recta adjacent to the colon. Pelvic Viscera: Unremarkable.? Osseous Structures: Unremarkable.?? CT/CT angio abdomen pelvis IMPRESSION: 1.? No evidence of mesenteric ischemia. 2.? Prominent mesenteric lymph nodes, especially along the ileocolic distribution, which can be seen in the setting of mesenteric adenitis. Assessment & Plan Assessment & Plan (1) Crohn's disease: Code(s): K50.90 - Crohn's disease, unspecified, without complications Category: Medical Qualifiers: Gastrointestinal tract location: large intestine Digestive disease complication type: with rectal bleeding Qualified Code(s): K50.111 - Crohn's disease of large intestine with rectal bleeding Plan: This is a 23-year-old male recently diagnosed with Crohn's colitis who is referred by Dr. Helm for further evaluation. Patient's labs showed significantly elevated IgE level, colonoscopy with biopsy showed an ulcer. There were no features of vasculitis on biopsy. Mesenteric CTA was unremarkable. Serology for IBD was negative. Patient gets intermittent knee pain. This might be IBD related arthritis but symptoms seem to be mild. Upon clinical evaluation I do not see any evidence of overlap with another autoimmune illness. However I will order comprehensive serology to rule out overlap with autoimmune rheumatic disease. However this should not delay treatment with his current plan of treatment by Dr. Helm. methotrexate was ordered as well as infliximab. Follow-up in about 4 weeks Plan I spent 46 minutes reviewing patient's chart, evaluating patient, ordering diagnostic workup, counseling patient and documenting in the chart Orders: Orders SANJANA Reflex Titer and Pattern Today M32.9 - Systemic lupus erythematosus, unspecified Anti Extractable Nuclear Ag Today M32.9 - Systemic lupus erythematosus, unspecified Complement C3 Today M32.9 - Systemic lupus erythematosus, unspecified C Reactive Protein Today M32.9 - Systemic lupus erythematosus, unspecified Protein Creatinine Ratio, Ur Today M32.9 - Systemic lupus erythematosus, unspecified ANCA Vasculitides Today I77.6 - Arteritis, unspecified Immunoglobulin G Subclasses Today D89.84 - IgG4-related disease Immunofixation Pnl, Serum Today K50.90 - Crohn's disease, unspecified, without complications Protein Electrophoresis, Serum Today K50.90 - Crohn's disease, unspecified, without complications Complete Blood Count Auto Diff Today M32.9 - Systemic lupus erythematosus, unspecified Comprehensive Met. Panel Today M32.9 - Systemic lupus erythematosus, unspecified Anti DNA DS Antibody Today M32.9 - Systemic lupus erythematosus, unspecified Complement C4 Today M32.9 - Systemic lupus erythematosus, unspecified DNA Double Stranded-Crithidia Today M32.9 - Systemic lupus erythematosus, unspecified Erythrocyte Sedimentation Rate Today M32.9 - Systemic lupus erythematosus, unspecified Sjogren's Antibodies Today M32.9 - Systemic lupus erythematosus, unspecified UA w Microscopic Today M32.9 - Systemic lupus erythematosus, unspecified HLA B27 Today M45.9 - Ankylosing spondylitis of unspecified sites in spine HLA B51 Behcet's Disease Today M35.2 - Behcet's disease Coding Level of Care Code New Pt Level 4 (76920) Diagnoses Crohn's disease of large intestine with rectal bleeding K50.111 Gastrointestinal tract location: large intestine Digestive disease complication type: with rectal bleeding
== END 2023-07-17 08:30 | disposition home or self-care (01) ==
PROVIDERS: Referring Provider Internal Medicine; Visit Provider Student in an Organized Health Care Education/Training Program
DX: K50.111 Crohn's disease of large intestine with rectal bleeding (principal)
CPT/HCPCS: 99204

== ENCOUNTER → 2023-07-17 07:27 | Outpatient (BNVA) | payer MEDICAID, SELFPAY | PROVIDERS: Visit Provider Student in an Organized Health Care Education/Training Program | DX: K50.111 Crohn's disease of large intestine with rectal bleeding (principal); R76.8 Other specified abnormal immunological findings in serum | CPT/HCPCS: 99202 ==

== ENCOUNTER 2023-07-19 08:47 | Outpatient (REF) | payer MEDICAID, SELFPAY ==
[2023-07-19 09:10] LABS: MANUAL DIFF FLAG NO
[2023-07-19 09:34] LABS: Basophils Absolute Auto 0.1 X10*3/uL (0.0-0.2); Basophils Percent Auto 0.3 % (0-2); Eosinophils Absolute Auto 0.2 X10*3/uL (0.0-0.4); Eosinophils Percent Auto 0.9 % (0-4); Hematocrit 37.8 % (42.0-52.0); Hemoglobin 12.4 g/dl (14.0-18.0); Imm Gran Abs Auto 0.39 X10*3/uL (0.00-0.03); Imm Gran Pct Auto 2.1 % (0.0-0.4); Lymphocytes Absolute Auto 2.7 X10*3/uL (1.2-4.9); Lymphocytes Percent Auto 14.9 % (20-40); Mean Corpuscular HGB Conc 32.8 g/dl (31.0-36.0); Mean Corpuscular Hemoglobin 26.6 pg (27.0-33.0); Mean Corpuscular Volume 81.1 fL (80.0-98.0); Mean Platelet Volume 7.4 fL (9.4-12.4); Monocytes Absolute Auto 1.3 X10*3/uL (0.1-1.2); Monocytes Percent Auto 6.8 % (2-11); Neutrophils Absolute Auto 13.7 x10*3/uL (2.0-8.3); Platelet Count 565 X10*3/uL (160-400); Red Blood Count 4.66 X10*6/uL (4.60-5.80); Red Cell Distribution Width 14.4 % (11.0-16.0); White Blood Count 18.3 X10*3/uL (4.8-10.8)
[2023-07-19 09:55] LABS: Rheumatoid Factor < 13.0 IU/mL (<15.0)
[2023-07-19 10:03] LABS: Alanine Aminotransferase 59 U/L (0-40); Albumin Level 3.6 g/dL (3.5-5.0); Alkaline Phosphatase 173 U/L (39-117); Anion Gap 15 (12-20); Aspartate Amino Transferase 16 U/L (5-37); Bilirubin Total 0.4 mg/dL (0.0-1.0); Blood Urea Nitrogen 10 mg/dL (9-16); C Reactive Protein 8.04 mg/dL (< or = 0.50); Calcium 9.4 mg/dL (8.4-10.2); Carbon Dioxide 24 mmol/L (22-29); Chloride 100 mmol/L (96-108); Estimated Glomerular Filt Rate > 60; Glucose Random 116 mg/dL (60-115); Potassium 3.9 mmol/L (3.3-5.1); Sodium 135 mmol/L (135-145); Total Protein 7.6 g/dL (6.5-8.0)
[2023-07-19 10:13] LABS: Erythrocyte Sedimentation Rate 77 MM/HR (0-15)
[2023-07-20 12:23] LABS: Complement C3 190 mg/dL (82-185)
[2023-07-20 20:38] LABS: Anti DNA DS Antibody <1 IU/mL; Antibody to SS-A Antigen <1.0 NEG AI (<1.0 NEG); Antibody to SS-B Antigen <1.0 NEG AI (<1.0 NEG); Myeloperoxidase Antibody <1.0 AI; Proteinase 3 PR3 Antibodies <1.0 AI; SM/Ribonucleoprotein Ab <1.0 NEG AI (<1.0 NEG); Smith Protein <1.0 NEG AI (<1.0 NEG)
[2023-07-23 14:44] LABS: Anti Nuclear Antibody Screen NEGATIVE (NEGATIVE)
[2023-07-23 17:13] LABS: Immunoglobulin G Subclass 1 589 mg/dL (382-929); Immunoglobulin G Subclass 2 377 mg/dL (241-700); Immunoglobulin G Subclass 3 36 mg/dL (22-178); Immunoglobulin G Subclass 4 38.2 mg/dL (4-86); Immunoglobulin G Total 1142 mg/dL (600-1640)
[2023-07-24 14:28] LABS: Cyclic Citrullinated Peptide <16 UNITS
[2023-07-24 22:57] LABS: Prot Elec - Albumin 3.1 g/dL (3.8-4.8); Prot Elec - Alpha1 0.6 g/dL (0.2-0.3); Prot Elec - Alpha2 1.5 g/dL (0.5-0.9); Prot Elec - Beta 1 0.6 g/dL (0.4-0.6); Prot Elec - Beta 2 0.4 g/dL (0.2-0.5); Prot Elec - Gamma 1.1 g/dL (0.8-1.7); Prot Elec - Total Protein 7.1 g/dL (6.1-8.1)
[2023-07-25 15:57] LABS: IgA 365 mg/dL (47-310); IgG 1132 mg/dL (600-1640); IgM 125 mg/dL (50-300)
[2023-07-25 16:24] LABS: HLA B27 Negative (Negative)
[2023-07-25 17:43] LABS: HLA B51 Comments See Comments; HLA B51 Method PCR SSOP
[2023-07-29 13:53] LABS: DNAds, Crithidia Antibody Negative (Negative)
== END 2023-07-19 08:48 | disposition home or self-care (01) ==
LOC: HO.LAB 08:47
PROVIDERS: Visit Provider Student in an Organized Health Care Education/Training Program
DX: M32.9 Systemic lupus erythematosus, unspecified (principal); D89.84 IgG4-related disease; K50.90 Crohn's disease, unspecified, without complications; M25.50 Pain in unspecified joint; M45.9 Ankylosing spondylitis of unspecified sites in spine; I77.6 Arteritis, unspecified; M35.2 Behcet's disease
CPT/HCPCS: 36415; 80053; 81374; 82784; 84165; 85025; 85652; 86021; 86038; 86140; 86160; 86200; 86225; 86235; 86255; 86334; 86431; 86812

== ENCOUNTER 2023-08-06 09:20 | Outpatient (AMB) | payer MEDICAID, SELFPAY ==
--- NOTE | 2023-08-06 09:26 | MHC.OFFVIS ---
Vital Signs 08/06/23 09:28 Height 5 ft 10 in Weight 196 lb 3.382 oz BMI 28.2 BP 127/76 Blood Pressure Location Lt brachial Position Sitting Pulse 89 Intake Visit Reasons: 4 week follow up Intake Note: Octavio presents in the office as a 4 week follow up. CC: He states he ran out of prednisone. He has a question regarding the methotextrate. He has only been taking prednisone. 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 Allergies amoxicillin [AMOXICILLIN] Allergy (Unknown, Verified 08/06/23 09:29) RASH HPI HPI 4 week follow up: Details: 23-year-old male with hx of abdominal pain and colitis, suspected crohns RECAP: in patient colonoscopy done for abdo pain and weight loss ulcers noted in cecum cecilia right side, path with chronic active colitis on left and severe on the right was d/c'ed on abx and steroids commenced on MTX and just started remicade IBD panel was not consistent with IBD CTA:06/12/23 unremarkable small and large bowel, mesenteric LNs noted CT 06/28-- worsening colitis cecilia right colon INTERIM: he is feeling much better just finished steroids bowels are normal no blood in stool he has moderate pain at night and takes tylenol which helps no mouth ulcers, no swollen joints, v mild back pain, no skin rashes EXAM: GENERAL: The patient is well developed and nontoxic. VITAL SIGNS:see workflow HEENT: Nonicteric sclerae, PERRLA, EOMI. Oropharynx clear. Moist mucous membranes. Conjunctivae appear well perfused. No thyroid mass. CHEST: Chest wall is nontender. HEART: Regular rate and rhythm without murmurs. LUNGS: Clear to auscultation bilaterally. ABDOMEN: Soft, positive bowel sounds, nontender, no organomegaly.no flank tenderness SKIN: No rash, no excessive bruising, petechiae, or purpura. NEUROLOGIC: Cranial nerves II-XII intact without motor/sensory deficit. Psych: normal affect A/P: 1/ Crohns disease, commenced anti TNF< not received MTX yet per Dr Escobar plan PLAN: 1/ karen up on MTX< if unable to get then can consider low dose 6 MP (mid level TPMT) or monotherapy with TNF 2/ repeat imaging in 3-6 months , possible repeat colo as well 3/ recheck labs in 4 weeks at next visit, incl crp and fecal lactoferrin 4/ hep b vaccine PFSH Medical History Asthma Surgical History Hx of colonoscopy Family History Maternal Grandfather Skin cancer Mother Diabetes Father Medical history unknown Other Family history of arthritis Social History Household Members: Other Household Members Other:: mother Housing: Apartment Do you presently have visiting nurse or other home services: No Alcohol intake: current Alcohol intake frequency: holidays/special occasions only Patient Tobacco Use Status: Never used Tobacco Substance Use Type: Marijuana service: No Current occupational status: unemployed Physical Exam Vital Signs: Last Vital Signs Pulse 89 08/06/23 09:28 BP 127/76 08/06/23 09:28 BMI result Body Mass Index 28.2 Assessment & Plan Assessment & Plan (1) Crohn's disease: Code(s): K50.90 - Crohn's disease, unspecified, without complications Category: Medical Qualifiers: Gastrointestinal tract location: large intestine Digestive disease complication type: with rectal bleeding Qualified Code(s): K50.111 - Crohn's disease of large intestine with rectal bleeding Plan: see above Medications: Refilled prednisone 3 tabs x 7 days, then 2 tabs x 7 days then 1 tab x 7 days orally; see taper instructions 42 tabs 0RF Coding Level of Care Code Est Pt Level 3 (27481) Diagnoses Crohn's disease of large intestine with rectal bleeding K50.111 Gastrointestinal tract location: large intestine Digestive disease complication type: with rectal bleeding
[2023-08-06 09:28] VITALS: BP 127/76; PULSE 89; BMI 28.2
== END 2023-08-06 10:05 | disposition home or self-care (01) ==
PROVIDERS: Visit Provider Internal Medicine Gastroenterology
DX: Z23 Encounter for immunization (principal); K50.111 Crohn's disease of large intestine with rectal bleeding
CPT/HCPCS: 99213

== ENCOUNTER → 2023-08-06 09:20 | Outpatient (BNVA) | payer SELFPAY | PROVIDERS: Visit Provider Internal Medicine Gastroenterology | DX: K50.111 Crohn's disease of large intestine with rectal bleeding (principal); Z79.52 Long term (current) use of systemic steroids; Z23 Encounter for immunization | CPT/HCPCS: 90471; 90746; 99212 ==

== ENCOUNTER 2023-08-21 07:33 | Outpatient (AMB) | payer MEDICAID, SELFPAY ==
--- NOTE | 2023-08-21 07:39 | A.OFFVIS_ITS ---
Vital Signs 08/21/23 07:44 Height 5 ft 10 in Weight 194 lb 7.163 oz BMI 27.9 BP 112/70 Blood Pressure Location Lt brachial Position Sitting Respiration 18 Pulse 66 Pulse Source Pulse Oximeter Pulse Oximetry (%) 96 Oxygen Delivery Method Room Air Intake Visit Reasons: hyper IgE/cm Intake Note: Patient presents for hyper IgE. Allergies amoxicillin [AMOXICILLIN] Allergy (Unknown, Verified 08/21/23 07:42) RASH Medication List - Last Reconciled 08/21/23 by Joel Wright MD acetaminophen 325 mg PO QID PRN methotrexate sodium (PF) 15 mg (0.6 mL) IM QWEEK HPI Comments Details: Patient returns for follow-up after completion of his diagnostic workup. He was started on prednisone, methotrexate as well as Remicade. States that his abdominal symptoms are improving overall. Initial history: This is a 23-year-old male with recently diagnosed Crohn's colitis is referred by Dr. Helm for further evaluation. Symptoms started approximately 2 months ago. With abdominal pain, blood in the stool, he has lost 60 lb of weight. He had a colonoscopy which showed colitis as well as an ulcer. Labs show significantly elevated IgE level. His serology was not consistent with IBD but the overall clinical syndrome is consistent with Crohn's colitis. He was started on prednisone, methotrexate was also ordered but patient has not started it yet. Infliximab was ordered as well. Patient states that he has history of asthma as well as seasonal allergies as a child. However he grew out of it states that sometimes at night he hears himself wheeze but this has not been a problem. Has not had any shortness of breath and has not had to use an inhaler long time. He is unaware of any family history of an autoimmune rheumatic disease. He states that he gets intermittent left knee pain, usually worse at night, he has to walk up and gout his knee. He denies any joint swelling. Denies any current nasal polyps. [facility] Medical History Asthma Surgical History Hx of colonoscopy Family History Maternal Grandfather Skin cancer Mother Diabetes Father Medical history unknown Other Family history of arthritis Social History Household Members: Other Household Members Other:: mother Housing: Apartment Do you presently have visiting nurse or other home services: No Alcohol intake: current Alcohol intake frequency: holidays/special occasions only Patient Tobacco Use Status: Never used Tobacco Substance Use Type: Marijuana service: No Current occupational status: unemployed Review of Systems Const Reports fatigue and Reports weight loss GI Denies abdominal pain Musc Reports myalgias Endo Reports fatigue Physical Exam Vital Signs: Last Vital Signs Pulse 66 08/21/23 07:44 Resp 18 08/21/23 07:44 BP 112/70 08/21/23 07:44 Pulse Ox 96 08/21/23 07:44 Oxygen Delivery Method Room Air 08/21/23 07:44 BMI result Body Mass Index 27.9 Const General: cooperative, healthy appearing and comfortable Nutritional Appearance: overweight Orientation/consciousness: patient oriented x3 Limitations: no limitations HEENT Head: Yes normocephalic and Yes atraumatic Resp Effort & Inspection: normal respiratory effort and able to speak in complete sentences Cardio Rate: regular rate Rhythm: regular rhythm Skin General skin exam: no rashes or lesions noted Neuro General: patient oriented x3 Extrem Other: No active synovitis Yanna test 10-15 cm Negative straight leg raise test Negative Fabere test bilaterally Normal range of motion of both knees without pain No ankle swelling or tenderness Normal nailfold capillaroscopy Results Reviewed Results Reviewed: Ordering Physician: Marv Encarnacion MD Date of Service: 06/12/23 Procedure(s): CT angio abdomen pelvis Accession Number(s): [id number] cc: Marv Encarnacion MD; Physician,None ~ EXAMINATION:? CTA ABDOMEN AND PELVIS CLINICAL INFORMATION:? Concern for ischemia TECHNIQUE: Multiple axial images were obtained through the abdomen and pelvis before and after administration of 80 mL of Omnipaque intravenously. Images were evaluated on independent dedicated 3-D workstation and 3-D images were reconstructed with concurrent radiologist supervision and subsequently interpreted. Specific vascular measurements are placed directly on the 3-D rendered images and are documented and stored in PACS. This CT examination was performed using dose optimization techniques as appropriate, variously including the following: *Automated exposure control. *Adjustment of mA and/or kV according to patient size (this includes techniques or standardized protocols for targeted exams where dose is matched to indication/reason for exam, i.e., extremities or head). *Use of iterative reconstruction technique. COMPARISON: CT abdomen and pelvis 06/10/2023 DLP:? 495 mGy-cm. FINDINGS: VASCULAR: Abdominal aorta: Normal in caliber Iliac arteries: Patent and normal in caliber Mesenteric arteries: The celiac artery is patent. The SMA origin is patent. Motion artifact in the proximal SMA. The mid and distal SMA are patent. Distal branches are patent. Renal arteries: Patent bilateral renal arteries. NONVASCULAR: Lung Bases: The lungs are clear with no evidence of inflammation or nodules.? Liver, Gallbladder, Biliary Tree: The liver is normal in size, shape, and attenuation. No focal hepatic lesion or biliary ductal dilatation is present. The gallbladder is unremarkable with no evidence of radiopaque gallstones, gallbladder wall thickening, or pericholecystic inflammatory changes.? Pancreas: Unremarkable.? Spleen: Unremarkable.? Adrenal Glands: Unremarkable.? Kidneys and Ureters: The kidneys are normal in size, shape, and attenuation. No hydronephrosis or hydroureter or calculi seen. No perinephric stranding.? Bladder: Unremarkable.? Gastrointestinal Tract: The small and large bowel are unremarkable.? Abdominal Wall: No hernia is demonstrated.? ? Lymph Nodes: Prominent mesenteric lymph nodes and prominent lymph nodes along the vasa recta adjacent to the colon. Pelvic Viscera: Unremarkable.? Osseous Structures: Unremarkable.?? CT/CT angio abdomen pelvis IMPRESSION: 1.? No evidence of mesenteric ischemia. 2.? Prominent mesenteric lymph nodes, especially along the ileocolic distribution, which can be seen in the setting of mesenteric adenitis. Assessment & Plan Assessment & Plan (1) Crohn's disease: Code(s): K50.90 - Crohn's disease, unspecified, without complications Category: Medical Qualifiers: Gastrointestinal tract location: large intestine Digestive disease complication type: with rectal bleeding Qualified Code(s): K50.111 - Crohn's disease of large intestine with rectal bleeding Plan: This is a 23-year-old male recently diagnosed with Crohn's colitis who is referred by Dr. Helm for further evaluation. Patient's labs showed significantly elevated IgE level, colonoscopy with biopsy showed an ulcer. There were no features of vasculitis on biopsy. Mesenteric CTA was unremarkable. Serology for IBD was negative. Patient gets intermittent knee pain. This might be IBD related arthritis but symptoms seem to be mild. Upon clinical evaluation I do not see any evidence of overlap with another autoimmune rheumatic disease. Comprehensive serology is negative as well. Patient was started on methotrexate and Remicade. Discussed with patient that at this time he should continue to follow-up with GI. If patient starts developing any new or worsening symptoms he should return for re-evaluation Follow-up as needed Plan I spent 16 minutes reviewing patient's chart, evaluating patient, counseling patient and documenting in the chart Coding Level of Care Code Est Pt Level 3 (51449) Diagnoses Crohn's disease of large intestine with rectal bleeding K50.111 Gastrointestinal tract location: large intestine Digestive disease complication type: with rectal bleeding
[2023-08-21 07:44] VITALS: BP 112/70; PULSE 66; RESP 18; O2SAT 96; BMI 27.9
== END 2023-08-21 07:56 | disposition home or self-care (01) ==
PROVIDERS: Visit Provider Student in an Organized Health Care Education/Training Program
DX: K50.111 Crohn's disease of large intestine with rectal bleeding (principal)
CPT/HCPCS: 99213

== ENCOUNTER → 2023-08-21 07:33 | Outpatient (BNVA) | payer MEDICAID, SELFPAY | PROVIDERS: Visit Provider Student in an Organized Health Care Education/Training Program | DX: K50.111 Crohn's disease of large intestine with rectal bleeding (principal) | CPT/HCPCS: 96372; 99211; 99212 ==

== ENCOUNTER 2023-08-21 11:23 | Outpatient (AMB) | payer MEDICAID, SELFPAY ==
--- NOTE | 2023-08-21 11:36 | AM.OFFVISNUR ---
Intake Visit Reasons: Methotrexate Inj Allergies amoxicillin [AMOXICILLIN] Allergy (Unknown, Verified 08/21/23 07:42) RASH Office Meds methotrexate (PF) 15 mg/0.4 mL subcutaneous auto-injector Performing Provider: Laura Helm MD Performing Location: [facility] Administered by: Ariadna Pineda RN on 08/21/23 11:37 Dose Route Admin Location Dispensed Lot Number Expiration Date [facility] Manager Surgical 15 mg subcut Left Deltoid 0.6 mL Assessment & Plan Assessment & Plan Orders: Orders AMB Methotrexate Injection Today K50.111 - Crohn's disease of large intestine with rectal bleeding Medications: New methotrexate (PF) 15 mg (0.4 mL) subcut QWEEK 0.4 mL 0RF K50.111 - Crohn's disease of large intestine with rectal bleeding
== END 2023-08-21 11:38 | disposition home or self-care (01) ==
PROVIDERS: Visit Provider Internal Medicine
DX: K50.111 Crohn's disease of large intestine with rectal bleeding (principal)

== ENCOUNTER 2023-08-23 05:22 | Emergency (ER) | payer MEDICAID, SELFPAY ==
[2023-08-23 05:32] VITALS: BP 116/80; PULSE 65; RESP 18; TEMP 35.8; O2SAT 96; BMI 27.8
[2023-08-23 05:56] LABS: IDNOW Serial# 08D9AD1C; Strep A Nucleic Acid Positive (Negative)
--- NOTE | 2023-08-23 08:49 | ED.URI ---
HPI - URI/Sore Throat General Chief Complaint: Upper Respiratory Symptoms Stated Complaint: sore throat congestion headache Time Seen by Provider: 08/23/23 07:12 Source: patient Mode of arrival: ambulatory Limitations: no limitations History of Present Illness ED Provider: Dr. Wyatt Love HPI Narrative: 23-year-old male with recent diagnosis of Crohn's disease (05/26/2023) who presents emergency department for evaluation of sore throat x2 days, nasal congestion, bilateral ear pain right greater than left and occasional nonproductive cough. Patient denied fever but did have chills. He had nausea but no vomiting. Patient has had no diarrhea. He states he is having diffuse, mild, sharp abdominal pain. He states this pain is different than his Crohn's pain. Related Data Home Medications ?Medication ?Instructions ?Recorded ?Confirmed acetaminophen 325 mg capsule 325 mg PO QID PRN 07/11/23 07/17/23 Previous Rx's ?Medication ?Instructions ?Recorded methotrexate sodium (PF) 25 mg/mL 15 mg (0.6 mL) IM QWEEK #2 mL 07/30/23 injection solution cephalexin 500 mg capsule 500 mg PO TID 7 days #21 caps 08/23/23 Allergies Allergy/AdvReac Type Severity Reaction Status Date / Time amoxicillin [AMOXICILLIN] Allergy Unknown RASH Verified 08/23/23 05:34 Review of Systems Review of Systems: Yes all other systems are reviewed and are negative [facility] Past Medical History [facility] Narrative: Social history: He denies tobacco use. He denies alcohol use. He does smoke marijuana. Medical History Asthma Surgical History Hx of colonoscopy Family History Family History Maternal Grandfather Skin cancer Mother Diabetes Father Medical history unknown Other Family history of arthritis Social History Social History Household Members: Other Household Members Other:: mother Housing: Apartment Do you presently have visiting nurse or other home services: No Alcohol intake: current Alcohol intake frequency: holidays/special occasions only Patient Tobacco Use Status: Never used Tobacco Substance Use Type: Marijuana Advance Directives: No Advance Directives Information Provided: Yes service: No Current occupational status: unemployed Physical Exam Vital Signs: Vital Signs: Last Vital Signs Temp 96.5 F L 08/23/23 05:32 Pulse 65 08/23/23 05:32 Resp 18 08/23/23 05:32 BP 116/80 08/23/23 05:32 Pulse Ox 96 08/23/23 05:32 O2 Del Method Room Air 08/23/23 05:32 BMI result Body Mass Index 27.8 Vital signs were normal Exam: General: Awake, alert in no distress Head: Normocephalic, atraumatic EENT: PERRL, Lids normal, sclera normal, conjunctiva normal, nose normal , ears external exam normal , tympanic membranes with no erythema or loss of landmarks, he does have scarring bilaterally of the tympanic membranes,, throat with posterior erythema, no exudates, uvula is midline, no trismus Neck: Supple, no adenopathy Lung: breath sounds symmetric, no wheezing, rales or rhonchi Chest: symmetric movement, nontender Heart: regular rate and rhythm, normal S1, S2 no murmurs or rubs Abdomen: soft, mild, diffuse, nonlocalizing tenderness, nondistended, normal bowel sounds Back: no vertebral tenderness, no CVAT Extremities: no deformities, moves all extremities symmetrically Psych: Pleasant, cooperative Medical Decision Making Medical Decision Making [facility] Narrative: 23-year-old male with a history of Crohn's disease who presents emergency department for 2 days of sore throat, abdominal pain, nasal congestion, bilaterally pain right greater than left and chills. Vital signs were normal. Physical examination did reveal posterior erythema otherwise was unremarkable. Differential diagnosis: ?Includes but is not limited to URI, bronchitis, viral pharyngitis, bacterial pharyngitis, Crohn's disease flare-up Following evaluation was ordered: Rapid strep Course: 08:59 My interpretation patient's laboratory evaluation is as follows: Rapid strep test was positive. Patient's symptoms and presentation are consistent with strep throat. Patient was started on Keflex 500 mg 3 times a day for 10 days. He was advised to take Tylenol for pain and to gargle with salt water. He was given printed and verbal instructions and discharged home. Lab Data [facility] Lab Attestation statement: I reviewed the patient's lab results. Labs: Lab Results 08/23/23 Range/Units 05:39 S. pyogenes GrpA SENDY Positive A (Negative) Prescription Management I considered prescription management with: Antibiotic Chronic Conditions Patient?s care impacted by: Other (Crohn's disease) Discharge Plan Discharge Clinical Impression: Acute streptococcal pharyngitis Patient Disposition: Home, Self-Care Instructions: Strep Throat (ED) Additional Instructions: Your rapid strep throat test was positive. Streptococcus (strep) is a common bacteria that can cause infections and is treated with antibiotics. Take Keflex (cephalexin) 500 mg pills, 1 pill 3 times a day for 10 days. Make sure you complete the full 10 day course of this antibiotic. Take Tylenol (acetaminophen) 500 mg pills, 2 pills every 6 hours as needed for pain or fever. Take 8 oz of warm water and dissolve 1 tsp of salt in the water. Gargle and spit the fluid out. Do this 3 to 4 times a day and the should help with your throat pain. Follow-up with your doctor in 2 days. Please return to the emergency department if your symptoms get worse or if you develop any symptoms that are concerning to you. Please see the work note Prescriptions: New cephalexin 500 mg capsule 500 mg PO TID 7 Days Qty: 21 0RF No Action methotrexate sodium (PF) 25 mg/mL solution 15 mg IM QWEEK Qty: 2 2RF acetaminophen 325 mg capsule 325 mg PO QID PRN Stand Alone Forms: Work/School Release Print Language: Indonesian
[2023-08-23 09:03] VITALS: BP 124/82; PULSE 59; RESP 16; TEMP 36; O2SAT 100
== END 2023-08-23 09:07 | disposition home or self-care (01) ==
PROVIDERS: Emergency Provider Emergency Medicine Emergency Medical Services
DX: J02.0 Streptococcal pharyngitis (principal); B95.0 Streptococcus, group A, as the cause of diseases classified elsewhere; R09.81 Nasal congestion; R05.9 Cough, unspecified; H92.03 Otalgia, bilateral
CPT/HCPCS: 87651; 99282; 99283

== ENCOUNTER 2023-08-28 11:26 | Outpatient (AMB) | payer MEDICAID, SELFPAY ==
--- NOTE | 2023-08-28 11:36 | AM.OFFVISNUR ---
Intake Visit Reasons: Methotrexate Injection Allergies amoxicillin [AMOXICILLIN] Allergy (Unknown, Verified 08/23/23 05:34) RASH Office Meds methotrexate (PF) 20 mg/0.4 mL subcutaneous auto-injector Performing Provider: Laura Helm MD [place] [facility] [place] Administered by: Ariadna Pineda RN on 08/28/23 11:37 Dose Route Admin Location Dispensed Lot Number Expiration Date [facility] Regulatory Compliance Engineer 20 mg subcut 0.6 mL [id number] 12/05/24 Assessment & Plan Assessment & Plan Orders: Orders AMB Methotrexate Injection Today K50.111 - Crohn's disease of large intestine with rectal bleeding Medications: New methotrexate (PF) 20 mg (0.4 mL) subcut ONCE 0.6 mL 0RF K50.111 - Crohn's disease of large intestine with rectal bleeding
== END 2023-08-28 11:38 | disposition home or self-care (01) ==
PROVIDERS: Visit Provider Internal Medicine
DX: K50.111 Crohn's disease of large intestine with rectal bleeding (principal)

== ENCOUNTER → 2023-08-28 11:26 | Outpatient (BNVA) | payer MEDICAID, SELFPAY | PROVIDERS: Visit Provider Internal Medicine | DX: K50.111 Crohn's disease of large intestine with rectal bleeding (principal) | CPT/HCPCS: 96372; 99211 ==

== ENCOUNTER 2023-09-04 11:17 | Outpatient (AMB) | payer MEDICAID, SELFPAY ==
--- NOTE | 2023-09-04 11:45 | AM.OFFVISNUR ---
Intake Visit Reasons: Methotrexate Inj & Hep B #2 Allergies amoxicillin [AMOXICILLIN] Allergy (Unknown, Verified 08/23/23 05:34) RASH Office Meds methotrexate (PF) 20 mg/0.4 mL subcutaneous auto-injector Performing Provider: Laura Helm MD Performing Location: [facility] [place] [facility] Administered by: Ariadna Pineda RN on 09/04/23 11:48 Dose Route Admin Location Dispensed Lot Number Expiration Date [facility] Pan Pusher 20 mg subcut 0.6 mL Assessment & Plan Assessment & Plan Orders: Orders AMB Methotrexate Injection Today K50.111 - Crohn's disease of large intestine with rectal bleeding Hepatitis B Adult Immunization Today Z23 - Encounter for immunization Medications: New methotrexate (PF) 20 mg (0.4 mL) subcut ONCE 0.6 mL 0RF K50.111 - Crohn's disease of large intestine with rectal bleeding Engerix-B (PF) (hepatitis B virus vacc.rec(PF)) 1 mL IM ONCE 1 mL 0RF NS Z23 - Encounter for immunization
== END 2023-09-04 11:50 | disposition home or self-care (01) ==
PROVIDERS: Visit Provider Internal Medicine
DX: K50.111 Crohn's disease of large intestine with rectal bleeding (principal); Z23 Encounter for immunization

== ENCOUNTER → 2023-09-04 11:17 | Outpatient (BNVA) | payer MEDICAID, SELFPAY | PROVIDERS: Visit Provider Internal Medicine | DX: Z23 Encounter for immunization (principal); K50.111 Crohn's disease of large intestine with rectal bleeding | CPT/HCPCS: 90471; 90746; 96372; 99211 ==

== ENCOUNTER 2023-09-10 08:05 | Outpatient (REF) | payer MEDICAID, SELFPAY ==
--- NOTE | ~2023-09-10 | CT_ITS ---
EXAMINATION: CT ENTEROGRAPHY ABDOMEN AND PELVIS WITH CONTRAST CLINICAL INFORMATION: Chronic disease 1 no complication COMPARISON: CT abdomen and pelvis from 06/10/2023 TECHNIQUE: Study performed with oral VoLumen (1350 mL) and 480 mL of water to distend the abdomen. The patient was injected with 85 mL Omnipaque 350 intravenous contrast which was administered without adverse effect. Coronal and sagittal reformatted images were obtained at the technologist's workstation. This CT examination was performed using dose optimization techniques as appropriate, variously including the following: *Automated exposure control *Adjustment of mA and/or kV according to patient size (this includes techniques or standardized protocols for targeted exams where dose is matched to indication/reason for exam; i.e. extremities or head) *Use of iterative reconstruction technique DLP: 480 mGy-cm FINDINGS: GASTROINTESTINAL FINDINGS: Stomach: Well-distended and normal in appearance. Small intestine: Satisfactorily distended and normal in appearance. Large intestine: Well-distended and normal in appearance. No perirectal changes demonstrated. The appendix is normal. Additional findings: No abnormal enhancement of the vasa recta or significant mesenteric or retroperitoneal lymphadenopathy is seen. No abdominal abscess or fistulous tract demonstrated. ABDOMINAL AND PELVIC CT FINDINGS: Liver, gallbladder, biliary tract: Unremarkable Pancreas: Unremarkable Spleen: Not enlarged Adrenal glands and kidneys: Normal Ureters and bladder: Normal Lymphovascular structures: Unremarkable Bones: Unremarkable Lung bases: Clear CT/CT enterography IMPRESSION: Unremarkable examination. No evidence of Crohn's disease
[2023-09-10] MEDS: iohexoL 350 MG/ML 100 ML INFUS..BTL IV (09:38)
[2023-09-10] MEDS: Sorbitol/Mannit/Xanth Imaging 500 ML LIQUID 1500 ML PO (09:42)
== END 2023-09-10 08:06 | disposition home or self-care (01) ==
LOC: HO.CT 08:05
PROVIDERS: Visit Provider Internal Medicine
DX: K50.90 Crohn's disease, unspecified, without complications (principal)
CPT/HCPCS: 74177; Q9967

== ENCOUNTER 2023-10-05 08:20 | Outpatient (AMB) | payer MEDICAID, SELFPAY ==
--- NOTE | 2023-10-05 09:47 | MHC.OFFVIS ---
Intake Visit Reasons: MTX INJECTION Allergies amoxicillin [AMOXICILLIN] Allergy (Unknown, Verified 08/23/23 05:34) RASH PFSH Medical History Asthma Surgical History Hx of colonoscopy Family History Maternal Grandfather Skin cancer Mother Diabetes Father Medical history unknown Other Family history of arthritis Social History Household Members: Other Household Members Other:: mother Housing: Apartment Do you presently have visiting nurse or other home services: No Alcohol intake: current Alcohol intake frequency: holidays/special occasions only Patient Tobacco Use Status: Never used Tobacco Substance Use Type: Marijuana service: No Current occupational status: unemployed Office Meds methotrexate (PF) 15 mg/0.4 mL subcutaneous auto-injector Performing Provider: Laura Helm MD Performing Location: [facility] [place] [facility] Administered by: Caryn Dickinson RN on 10/05/23 09:42 Dose Route Admin Location Dispensed Lot Number Expiration Date [facility] Hat Presser 15 mg subcut left deltoid 0.6 mL [id number] 12/05/24 31509-698-93 Assessment & Plan Assessment & Plan Orders: Orders AMB Methotrexate Injection Today K50.111 - Crohn's disease of large intestine with rectal bleeding Coding
--- NOTE | 2023-10-05 09:48 | MHC.OFFVIS ---
Intake Visit Reasons: MTX INJECTION Allergies amoxicillin [AMOXICILLIN] Allergy (Unknown, Verified 12/22/23 14:13) RASH PFSH Medical History Asthma Surgical History Hx of colonoscopy Family History Maternal Grandfather Skin cancer Mother Diabetes Father Medical history unknown Other Family history of arthritis Social History Household Members: Other Household Members Other:: mother Housing: Apartment Do you presently have visiting nurse or other home services: No Alcohol intake: current Alcohol intake frequency: holidays/special occasions only Patient Tobacco Use Status: Never used Tobacco Substance Use Type: Marijuana Advance Directives: No Advance Directives Information Provided: No service: No Current occupational status: unemployed Office Meds methotrexate (PF) 15 mg/0.4 mL subcutaneous auto-injector Performing Provider: Laura Helm MD Performing Location: [facility] G[facility] Administered by: Caryn Dickinson RN on 10/05/23 09:42 Dose Route Admin Location Dispensed Lot Number Expiration Date [facility] Regional Trainer 15 mg subcut left deltoid 0.6 mL [id number] 12/05/24 36840-149-57 Assessment & Plan Assessment & Plan Orders: Orders AMB Methotrexate Inj Practice Supplied 10/05/23 K50.111 - Crohn's disease of large intestine with rectal bleeding Coding Level of Care Code Est Pt Level 1 (20273)
--- NOTE | 2023-10-05 11:27 | AM.OFFVISNUR ---
Intake Visit Reasons: MTX INJECTION Allergies amoxicillin [AMOXICILLIN] Allergy (Unknown, Verified 08/23/23 05:34) RASH Office Meds methotrexate (PF) 15 mg/0.4 mL subcutaneous auto-injector Performing Provider: Laura Helm MD [place] [facility] [place] Administered by: Caryn Dickinson RN on 10/05/23 09:42 Dose Route Admin Location Dispensed Lot Number Expiration Date [facility] Quality Technician 15 mg subcut left deltoid 0.6 mL [id number] 12/05/24 94763-418-77 Assessment & Plan Assessment & Plan Orders: Orders AMB Methotrexate Injection Today K50.111 - Crohn's disease of large intestine with rectal bleeding
== END 2023-10-05 10:17 | disposition home or self-care (01) ==
PROVIDERS: Visit Provider Internal Medicine
DX: K50.111 Crohn's disease of large intestine with rectal bleeding (principal)

== ENCOUNTER → 2023-10-05 08:20 | Outpatient (BNVA) | payer MEDICAID, SELFPAY | PROVIDERS: Visit Provider Internal Medicine | DX: K50.111 Crohn's disease of large intestine with rectal bleeding (principal) | CPT/HCPCS: 96372; J9260 ==

== ENCOUNTER 2023-11-02 07:02 | Outpatient (REF) | payer MEDICAID, SELFPAY ==
[2023-11-02 08:37] LABS: Mean Corpuscular HGB Conc 33.6 g/dl (31.0-36.0); Mean Corpuscular Hemoglobin 28.8 pg (27.0-33.0); Mean Corpuscular Volume 85.7 fL (80.0-98.0); Mean Platelet Volume 9.1 fL (9.4-12.4); Platelet Count 254 X10*3/uL (160-400); Red Blood Count 5.25 X10*6/uL (4.60-5.80); Red Cell Distribution Width 13.6 % (11.0-16.0); White Blood Count 8.5 X10*3/uL (4.8-10.8)
[2023-11-02 08:39] LABS: Hemoglobin 15.1 g/dl (14.0-18.0)
[2023-11-02 09:05] LABS: Alanine Aminotransferase 41 U/L (0-40); Albumin Level 4.1 g/dL (3.5-5.0); Alkaline Phosphatase 87 U/L (39-117); Anion Gap 11 (12-20); Aspartate Amino Transferase 20 U/L (5-37); Bilirubin Direct < 0.2 mg/dL (0.0-0.5); Bilirubin Total 0.2 mg/dL (0.0-1.0); Blood Urea Nitrogen 19 mg/dL (9-16); Calcium 9.4 mg/dL (8.4-10.2); Carbon Dioxide 25 mmol/L (22-29); Chloride 110 mmol/L (96-108); Estimated Glomerular Filt Rate > 60; Glucose Random 110 mg/dL (60-115); Potassium 4.4 mmol/L (3.3-5.1); Sodium 142 mmol/L (135-145); Total Protein 7.5 g/dL (6.5-8.0)
[2023-11-02 09:24] LABS: TSH reflex Free T4 1.08 uIU/mL (0.32-4.0)
== END 2023-11-02 07:03 | disposition home or self-care (01) ==
LOC: HO.LAB 07:02
PROVIDERS: Visit Provider Internal Medicine
DX: K50.111 Crohn's disease of large intestine with rectal bleeding (principal); K50.919 Crohn's disease, unspecified, with unspecified complications
CPT/HCPCS: 36415; 80053; 80076; 82248; 83735; 84443; 85027

== ENCOUNTER 2023-12-22 13:48 | Emergency (ER) | payer MEDICAID, SELFPAY ==
[2023-12-22 14:12] VITALS: BP 122/94; PULSE 77; RESP 16; TEMP 37.2; O2SAT 99; BMI 31.1
--- NOTE | 2023-12-22 14:17 | ED.EYEPROB ---
HPI - Eye Problem General Chief complaint: Eye Problems Stated complaint: something in eye Time Seen by Provider: 12/22/23 16:41 Source: patient Mode of arrival: ambulatory Limitations: no limitations History of Present Illness ED Provider: LEXX ZAVALA PA-C HPI Narrative: 23 year old male with no significant pmhx presents to the ED today for evaluation of left eye irritation x24 hours. Patient states that while laying under his car yesterday attempting to fix the breaks, he felt something fall into his left eye. This occurred while he was shaking the breaks and is unsure if it was a dust particle or piece of metal. He states that he was wearing protective eyewear at the time. Since this time reports irriation to the left eye and excessive tearing and photophobia. He attempted to flush the eye out without improvement. Denies pain. Patient does not wear corrective lenses. Denies vision changes, discharge from the eye, pain with eye movements. Denies trauma/ injury to the eye. Related Data Home Medications ?Medication ?Instructions ?Recorded ?Confirmed acetaminophen 325 mg capsule 325 mg PO QID PRN 07/11/23 07/17/23 Previous Rx's ?Medication ?Instructions ?Recorded cephalexin 500 mg capsule 500 mg PO TID 7 days #21 caps 08/23/23 methotrexate sodium 15 mg tablet 15 mg PO QWEEK 90 days #13 tabs 10/18/23 erythromycin 5 mg/gram (0.5 %) eye 1 appl ophthalmic-Left BID 7 days 12/22/23 ointment #3.5 grams Allergies Allergy/AdvReac Type Severity Reaction Status Date / Time amoxicillin [AMOXICILLIN] Allergy Unknown RASH Verified 12/22/23 14:13 Review of Systems Review of Systems: Constitutional: No fever, chills, fatigue, night sweats, weight changes ENT/Mouth: No ear pain, hearing loss, nasal congestion, sinus pain, rhinorrhea, sore throat Eyes: No swelling, redness, vision changes, discharge, +left eye irritation Cardio: No chest pain, palpitations, DAVILA, orthopnea, peripheral edema Pulm: No SOB, cough, sputum, wheezing, dyspnea, hemoptysis GI: No nausea, vomiting, hematemesis, abdominal pain, diarrhea, constipation, hematochezia, melena : No irregular bleeding, dysuria, frequency, urgency, hesitancy, hematuria, flank pain, urinary flow changes, urinary incontinence or retention MSK: No back pain, neck pain, joint pain, myalgias Skin: No lesions, rashes Neuro: No weakness, numbness, paresthesias, LOC, dizziness, headache Psych: No anxiety/panic, depression, SI/HI, AH/VH All other systems reviewed and are negative. [facility] Past Medical History Attestation statement: The following information was validated with the patient. Source: old records reviewed and nursing notes reviewed Medical History Asthma Surgical History Hx of colonoscopy Family History Family History Maternal Grandfather Skin cancer Mother Diabetes Father Medical history unknown Other Family history of arthritis Social History Social History Household Members: Other Household Members Other:: mother Housing: Apartment Do you presently have visiting nurse or other home services: No Alcohol intake: current Alcohol intake frequency: holidays/special occasions only Patient Tobacco Use Status: Never used Tobacco Substance Use Type: Marijuana Advance Directives: No Advance Directives Information Provided: No service: No Current occupational status: unemployed Physical Exam Vital Signs: Vital Signs: Last Vital Signs Temp 99.0 F 12/22/23 14:12 Pulse 77 12/22/23 14:12 Resp 16 12/22/23 14:12 BP 122/94 H 12/22/23 14:12 Pulse Ox 99 12/22/23 14:12 O2 Del Method Room Air 12/22/23 14:12 BMI result Body Mass Index 31.1 hypertensive, vitals otherwise wnl General: Well appearing, in no acute distress. Skin: Warm, dry, intact. No rashes or lesions. Head: Normocephalic, atraumatic. EENT: Hearing is intact b/l. Conjunctiva clear. Moist mucous membranes.?No periorbital swelling. No enophthalmous or exopthalmous. EOMs intact without pain or entrapment. PERRLA. Positive photophobia. No obvious foreign body or abrasion. Noted conjunctival injection to left eye. No hazy cornea. IOP OD 14, IOP OS 15. On tetracaine exam, there is a small area of reuptake noted to cornea at 4 oclock, question abrasion vs fb. no dendritic lesions. Neck: Supple without LAD Cardiac: Chest wall symmetric. RRR Lungs: Normal respiratory effort without accessory muscle use. CTA bilaterally Ext: Upper and lower extremities atraumatic, without tenderness, deformity, swelling or erythema. Neuro: AOx3. Normal speech. Ambulating with steady gait. Psych: Appropriate mood and affect. Responds appropriately to questions. Course Course Course Narrative: This is an RME: Additional HPI, ROS, PE not included below will be deferred to primary provider. RME assessment and note performed by: Elaine Shepherd PA-C This is a 23-year-old male who presents emergency department with complaints of ?Foreign body in left eye. Patient states that he was working on his car yesterday and felt something land directly in his left eye. He attempted to flush his eye out at home without improvement. He states increased redness, irritation, and tearing. He does not wear contacts lenses. Plan: Will need visual acuity, as well as thorough eye exam. Reevaluation(s) Reevaluation #1: 1710 -- re-uptake noted to 4:00 region of left cornea. Initially I suspected foreign body. I attempted removal with the end of a cotton swab which was unsuccessful. I then used the bevel of an 18 gauge needle with the assistance of Eryn ROSSI. I was unable to remove suspected foreign body. On further examination, it appears to be more of an abrasion to the cornea. At this time, I will discharge patient home with erythromycin with close Ophthalmology follow-up. Referral provided. I advised him to call them Sunday morning. Patient has remained stable throughout ED visit today. Discussed worrisome signs and symptoms and when to return to the ED. All questions answered at this time. Patient is agreeable with disposition and stable for discharge. Medications Administered Discontinued Medications Generic Name Dose Route Start Last Admin Trade Name Freq PRN Reason Stop Dose Admin Fluorescein Sodium 1 strip 12/22/23 14:18 12/22/23 15:30 Fluorescein Sodium Strip EYE-LEFT 12/22/23 14:19 1 strip ONCE ONE Administration Tetracaine HCl 1 drop 12/22/23 14:18 12/22/23 15:29 Tetracaine Hcl/Pf 0.5% Oph Claribel 4 Ml Drops EYE-LEFT 12/22/23 14:19 1 drop ONCE ONE Administration Medical Decision Making Medical Decision Making MDM Narrative: 23 year old male with no significant pmhx presents to the ED today for evaluation of left eye irritation x24 hours. Patient hypertensive, vitals otherwise wnl. He is non toxic appearing and in NAD. Lying comfortably on exam bed with lights dimmed. On eye examination, there is no periorbital swelling. No enophthalmous or exopthalmous. EOMs intact without pain or entrapment. PERRLA. Positive photophobia. No obvious foreign body or abrasion. Noted conjunctival injection to left eye. No hazy cornea. IOP OD 14, IOP OS 15. On tetracaine exam, there is a small area of reuptake noted to cornea at 4 oclock, question abrasion vs fb. no dendritic lesions. Differential diagnosis includes corneal abrasion, corneal ulceration, corneal FB, conjunctivitis. Lower suspicion for iritis, keratitis. Unlikely pre-septal cellulitis, orbital cellulitis, acute angle closure glaucoma. Plan for tetracaine/fluorescein examination, IOP, and disposition. Differential Diagnosis Differential Diagnoses: The differential diagnosis associated with the presentation includes as above. Admission/Observation Not indicated. External Record Review External record reviewed: Inpatient record Prescription Management I considered prescription management with: Antibiotic (erythromycin ointment) Social Determinants Patient?s care significantly limited by Social Determinants of Health including: Other Social Determinant of Health Critical Care Time Critical Care Time Critical Care Time: No Discharge Plan Discharge Clinical Impression: Corneal abrasion Qualifiers: Encounter type: initial encounter Laterality: left Qualified Code(s): S05.02XA - Injury of conjunctiva and corneal abrasion without foreign body, left eye, initial encounter Corneal foreign body Qualifiers: Encounter type: initial encounter Laterality: left Qualified Code(s): T15.02XA - Foreign body in cornea, left eye, initial encounter Patient Disposition: Home, Self-Care Instructions: Corneal Abrasion (ED), Eye Foreign Body (ED), Photophobia (ED) Additional Instructions: You were evaluated in the ED today for left eye pain. You have a small abrasion to your left cornea. Erythromycin antibiotic ointment has been sent to your pharmacy for treatment. Apply this to your eye twice a day for the next 7 days. Take tylenol and motrin at home for pain. You need to follow up with an strategic communications manager. You have been provided with a referral. Call them to establish care. They will not call you. Return with new or worsening symptoms. In the case of an emergency call 911. Prescriptions: New erythromycin 5 mg/gram (0.5 %) ointment 1 appl ophthalmic-Left BID 7 Days Qty: 3.5 0RF No Action methotrexate sodium 15 mg tablet 15 mg PO QWEEK 90 Days Qty: 13 1RF cephalexin 500 mg capsule 500 mg PO TID 7 Days Qty: 21 0RF acetaminophen 325 mg capsule 325 mg PO QID PRN Referrals: [facility] [Primary Care Provider] - Chino Cerna [Physician] - Print Language: Chinese
[2023-12-22] MEDS: Tetracaine HCl/PF 0.5% Oph Sol 4 ML DROPS 1 DROP EYE-LEFT (15:29)
[2023-12-22] MEDS: Fluorescein Sodium STRIP 1 STRIP EYE-LEFT (15:30)
[2023-12-22 17:11] VITALS: BP 123/90; PULSE 84; RESP 18; TEMP 37.2; O2SAT 97
[2023-12-22 18:31] VITALS: BP 123/90; PULSE 84; RESP 18; TEMP 37.2; O2SAT 97
== END 2023-12-22 18:32 | disposition home or self-care (01) ==
PROVIDERS: Emergency Provider Internal Medicine
DX: T15.02XA Foreign body in cornea, left eye, initial encounter (principal); W44.8XXA Other foreign body entering into or through a natural orifice, initial encounter; Y93.89 Activity, other specified; Y92.009 Unspecified place in unspecified non-institutional (private) residence as the place of occurrence of the external cause; Y99.9 Unspecified external cause status
CPT/HCPCS: 65220; 99284